=== PATIENT | male | born 1950 | race Caucasian/White ===

== ENCOUNTER 2021-10-18 07:11 | Outpatient (REF) | payer OTHER, SELFPAY ==
[2021-10-18 07:57] LABS: Hematocrit 25.4 % (42.0-52.0); Hemoglobin 8.1 g/dl (14.0-18.0); Mean Corpuscular HGB Conc 31.9 g/dl (31.0-36.0); Mean Corpuscular Hemoglobin 28.9 pg (27.0-33.0); Mean Corpuscular Volume 90.7 fL (80.0-98.0); Mean Platelet Volume 10.3 fL (9.4-12.4); NRBC Pct Auto 0.5 /100WBC (0.0-0.2); Platelet Count 225 X10*3/uL (160-400); Red Cell Distribution Width 15.3 % (11.0-16.0); White Blood Count 4.3 X10*3/uL (4.8-10.8)
[2021-10-18 08:27] LABS: Alanine Aminotransferase 15 U/L (0-40); Albumin Level 2.9 g/dL (3.5-5.0); Alkaline Phosphatase 52 U/L (39-117); Anion Gap 10 (12-20); Aspartate Amino Transferase 18 U/L (5-37); Bilirubin Total 0.5 mg/dL (0.0-1.0); Blood Urea Nitrogen 10 mg/dL (9-16); Calcium 8.2 mg/dL (8.4-10.2); Carbon Dioxide 29 mmol/L (22-29); Chloride 109 mmol/L (96-108); Estimated Glomerular Filt Rate > 60; Glucose Random 93 mg/dL (60-115); Potassium 3.6 mmol/L (3.3-5.1); Sodium 144 mmol/L (135-145); Total Protein 4.6 g/dL (6.5-8.0)
== END 2021-10-18 07:12 | disposition home or self-care (01) ==
LOC: HO.MMNH2L 07:11
PROVIDERS: Visit Provider Family Medicine
DX: D64.9 Anemia, unspecified (principal)
CPT/HCPCS: 36415; 80053; 85027

== ENCOUNTER 2021-10-25 | Outpatient (REF) | payer OTHER, SELFPAY ==
[2021-10-25 07:48] LABS: Hematocrit 30.5 % (42.0-52.0); Hemoglobin 9.4 g/dl (14.0-18.0); Mean Corpuscular HGB Conc 30.8 g/dl (31.0-36.0); Mean Corpuscular Hemoglobin 28.5 pg (27.0-33.0); Mean Corpuscular Volume 92.4 fL (80.0-98.0); Mean Platelet Volume 10.5 fL (9.4-12.4); Platelet Count 274 X10*3/uL (160-400); Red Cell Distribution Width 15.4 % (11.0-16.0); White Blood Count 5.2 X10*3/uL (4.8-10.8)
[2021-10-25 08:37] LABS: Anion Gap 10 (12-20); Blood Urea Nitrogen 20 mg/dL (9-16); Carbon Dioxide 29 mmol/L (22-29); Chloride 110 mmol/L (96-108); Estimated Glomerular Filt Rate > 60; Glucose Random 82 mg/dL (60-115); Sodium 145 mmol/L (135-145)
== END 2021-10-25 00:01 | disposition home or self-care (01) ==
LOC: HO.MMNH2L
PROVIDERS: Visit Provider Family Medicine
DX: D64.9 Anemia, unspecified (principal)
CPT/HCPCS: 36415; 80048; 85027

== ENCOUNTER 2021-11-01 | Outpatient (REF) | payer OTHER, SELFPAY ==
[2021-11-01 07:30] LABS: MANUAL DIFF FLAG NO
[2021-11-01 07:41] LABS: Basophils Percent Auto 0.5 % (0-2); Eosinophils Absolute Auto 0.3 X10*3/uL (0.0-0.4); Eosinophils Percent Auto 4.7 % (0-4); Hematocrit 36.1 % (42.0-52.0); Hemoglobin 11.5 g/dl (14.0-18.0); Imm Gran Abs Auto 0.03 X10*3/uL (0.00-0.03); Imm Gran Pct Auto 0.5 % (0.0-0.4); Lymphocytes Absolute Auto 1.1 X10*3/uL (1.2-4.9); Lymphocytes Percent Auto 18.2 % (20-40); Mean Corpuscular HGB Conc 31.9 g/dl (31.0-36.0); Mean Corpuscular Hemoglobin 28.3 pg (27.0-33.0); Mean Corpuscular Volume 88.7 fL (80.0-98.0); Mean Platelet Volume 10.9 fL (9.4-12.4); Monocytes Absolute Auto 0.7 X10*3/uL (0.1-1.2); Monocytes Percent Auto 11.8 % (2-11); Neutrophils Absolute Auto 3.8 x10*3/uL (2.0-8.3); Neutrophils Percent Auto 64.3 % (45-73); Platelet Count 289 X10*3/uL (160-400); Red Blood Count 4.07 X10*6/uL (4.60-5.80); Red Cell Distribution Width 14.1 % (11.0-16.0); White Blood Count 5.9 X10*3/uL (4.8-10.8)
[2021-11-01 08:02] LABS: Anion Gap 12 (12-20); Blood Urea Nitrogen 11 mg/dL (9-16); Calcium 8.7 mg/dL (8.4-10.2); Carbon Dioxide 26 mmol/L (22-29); Chloride 108 mmol/L (96-108); Estimated Glomerular Filt Rate > 60; Glucose Random 85 mg/dL (60-115); Potassium 4.1 mmol/L (3.3-5.1); Sodium 142 mmol/L (135-145)
== END 2021-11-01 00:01 | disposition home or self-care (01) ==
LOC: HO.MMNH2L
PROVIDERS: Visit Provider Family Medicine
DX: D64.9 Anemia, unspecified (principal)
CPT/HCPCS: 36415; 80048; 85025

== ENCOUNTER 2021-11-08 | Outpatient (REF) | payer OTHER, SELFPAY ==
[2021-11-08 06:59] LABS: Hematocrit 37.2 % (42.0-52.0); Hemoglobin 11.7 g/dl (14.0-18.0); Mean Corpuscular HGB Conc 31.5 g/dl (31.0-36.0); Mean Corpuscular Hemoglobin 27.7 pg (27.0-33.0); Mean Corpuscular Volume 88.2 fL (80.0-98.0); Mean Platelet Volume 10.7 fL (9.4-12.4); Platelet Count 211 X10*3/uL (160-400); Red Blood Count 4.22 X10*6/uL (4.60-5.80); Red Cell Distribution Width 14.4 % (11.0-16.0); White Blood Count 5.9 X10*3/uL (4.8-10.8)
[2021-11-08 07:17] LABS: Anion Gap 13 (12-20); Blood Urea Nitrogen 12 mg/dL (9-16); Calcium 8.6 mg/dL (8.4-10.2); Carbon Dioxide 27 mmol/L (22-29); Chloride 106 mmol/L (96-108); Estimated Glomerular Filt Rate > 60; Glucose Random 99 mg/dL (60-115); Sodium 142 mmol/L (135-145)
== END 2021-11-08 00:01 | disposition home or self-care (01) ==
LOC: HO.MMNH2L
PROVIDERS: Visit Provider Family Medicine
DX: D64.9 Anemia, unspecified (principal)
CPT/HCPCS: 36415; 80048; 85027

== ENCOUNTER 2021-11-15 05:59 | Outpatient (REF) | payer OTHER, SELFPAY ==
[2021-11-15 07:18] LABS: Hemoglobin 10.6 g/dl (14.0-18.0); Mean Corpuscular HGB Conc 31.2 g/dl (31.0-36.0); Mean Corpuscular Hemoglobin 27.5 pg (27.0-33.0); Mean Corpuscular Volume 88.3 fL (80.0-98.0); Mean Platelet Volume 10.6 fL (9.4-12.4); Platelet Count 207 X10*3/uL (160-400); Red Blood Count 3.85 X10*6/uL (4.60-5.80); White Blood Count 4.6 X10*3/uL (4.8-10.8)
[2021-11-15 07:50] LABS: Anion Gap 8 (12-20); Blood Urea Nitrogen 13 mg/dL (9-16); Calcium 8.4 mg/dL (8.4-10.2); Carbon Dioxide 30 mmol/L (22-29); Chloride 110 mmol/L (96-108); Estimated Glomerular Filt Rate > 60; Glucose Random 85 mg/dL (60-115); Potassium 3.9 mmol/L (3.3-5.1); Sodium 144 mmol/L (135-145)
== END 2021-11-15 06:00 | disposition home or self-care (01) ==
LOC: HO.MMNH2L 05:59
PROVIDERS: Visit Provider Family Medicine
DX: D64.9 Anemia, unspecified (principal)
CPT/HCPCS: 36415; 80048; 85027

== ENCOUNTER 2021-11-22 21:39 | Outpatient (REF) | payer OTHER, SELFPAY ==
[2021-11-22 06:55] LABS: Hematocrit 38.6 % (42.0-52.0); Hemoglobin 11.8 g/dl (14.0-18.0); Mean Corpuscular HGB Conc 30.6 g/dl (31.0-36.0); Mean Corpuscular Volume 88.3 fL (80.0-98.0); Mean Platelet Volume 10.6 fL (9.4-12.4); Platelet Count 196 X10*3/uL (160-400); Red Blood Count 4.37 X10*6/uL (4.60-5.80); Red Cell Distribution Width 14.3 % (11.0-16.0); White Blood Count 6.7 X10*3/uL (4.8-10.8)
[2021-11-22 07:25] LABS: Anion Gap 11 (12-20); Blood Urea Nitrogen 15 mg/dL (9-16); Calcium 8.7 mg/dL (8.4-10.2); Carbon Dioxide 28 mmol/L (22-29); Chloride 108 mmol/L (96-108); Estimated Glomerular Filt Rate > 60; Glucose Random 89 mg/dL (60-115); Potassium 4.2 mmol/L (3.3-5.1); Sodium 143 mmol/L (135-145)
== END 2021-11-22 21:40 | disposition home or self-care (01) ==
LOC: HO.MMNH2L 21:39
PROVIDERS: Visit Provider Family Medicine
DX: D64.9 Anemia, unspecified (principal)
CPT/HCPCS: 36415; 80048; 85027

== ENCOUNTER 2021-11-29 00:46 | Outpatient (REF) | payer OTHER, SELFPAY ==
[2021-11-29 07:10] LABS: Hematocrit 39.9 % (42.0-52.0); Hemoglobin 12.5 g/dl (14.0-18.0); Mean Corpuscular HGB Conc 31.3 g/dl (31.0-36.0); Mean Corpuscular Hemoglobin 27.5 pg (27.0-33.0); Mean Corpuscular Volume 87.7 fL (80.0-98.0); Mean Platelet Volume 10.1 fL (9.4-12.4); Platelet Count 161 X10*3/uL (160-400); Red Blood Count 4.55 X10*6/uL (4.60-5.80); Red Cell Distribution Width 14.6 % (11.0-16.0); White Blood Count 4.5 X10*3/uL (4.8-10.8)
[2021-11-29 07:30] LABS: Anion Gap 9 (12-20); Blood Urea Nitrogen 9 mg/dL (9-16); Calcium 8.6 mg/dL (8.4-10.2); Carbon Dioxide 29 mmol/L (22-29); Chloride 108 mmol/L (96-108); Estimated Glomerular Filt Rate > 60; Glucose Random 81 mg/dL (60-115); Potassium 3.7 mmol/L (3.3-5.1); Sodium 142 mmol/L (135-145)
== END 2021-11-29 00:47 | disposition home or self-care (01) ==
LOC: HO.MMNH2L 00:46
PROVIDERS: Visit Provider Family Medicine
DX: D64.9 Anemia, unspecified (principal)
CPT/HCPCS: 36415; 80048; 85027

== ENCOUNTER 2021-12-06 00:42 | Outpatient (REF) | payer OTHER, SELFPAY ==
[2021-12-06 07:11] LABS: Hematocrit 39.5 % (42.0-52.0); Hemoglobin 12.2 g/dl (14.0-18.0); Mean Corpuscular HGB Conc 30.9 g/dl (31.0-36.0); Mean Corpuscular Hemoglobin 27.1 pg (27.0-33.0); Mean Corpuscular Volume 87.8 fL (80.0-98.0); Mean Platelet Volume 10.4 fL (9.4-12.4); Platelet Count 161 X10*3/uL (160-400); Red Cell Distribution Width 14.8 % (11.0-16.0); White Blood Count 4.3 X10*3/uL (4.8-10.8)
[2021-12-06 07:37] LABS: Anion Gap 11 (12-20); Blood Urea Nitrogen 12 mg/dL (9-16); Calcium 8.6 mg/dL (8.4-10.2); Carbon Dioxide 28 mmol/L (22-29); Chloride 107 mmol/L (96-108); Estimated Glomerular Filt Rate > 60; Glucose Random 82 mg/dL (60-115); Potassium 3.7 mmol/L (3.3-5.1); Sodium 142 mmol/L (135-145)
== END 2021-12-06 00:43 | disposition home or self-care (01) ==
LOC: HO.MMNH2L 00:42
PROVIDERS: Visit Provider Family Medicine
DX: D64.9 Anemia, unspecified (principal)
CPT/HCPCS: 36415; 80048; 85027

== ENCOUNTER 2021-12-13 00:57 | Outpatient (REF) | payer OTHER, SELFPAY ==
[2021-12-13 07:04] LABS: Hematocrit 38.3 % (42.0-52.0); Hemoglobin 12.1 g/dl (14.0-18.0); Mean Corpuscular HGB Conc 31.6 g/dl (31.0-36.0); Mean Corpuscular Hemoglobin 27.2 pg (27.0-33.0); Mean Corpuscular Volume 86.1 fL (80.0-98.0); Mean Platelet Volume 10.6 fL (9.4-12.4); Platelet Count 162 X10*3/uL (160-400); Red Blood Count 4.45 X10*6/uL (4.60-5.80); Red Cell Distribution Width 14.9 % (11.0-16.0); White Blood Count 3.7 X10*3/uL (4.8-10.8)
[2021-12-13 07:23] LABS: Anion Gap 11 (12-20); Blood Urea Nitrogen 10 mg/dL (9-16); Calcium 8.4 mg/dL (8.4-10.2); Carbon Dioxide 27 mmol/L (22-29); Chloride 108 mmol/L (96-108); Estimated Glomerular Filt Rate > 60; Glucose Random 86 mg/dL (60-115); Potassium 3.6 mmol/L (3.3-5.1); Sodium 142 mmol/L (135-145)
== END 2021-12-13 00:58 | disposition home or self-care (01) ==
LOC: HO.MMNH2L 00:57
PROVIDERS: Visit Provider Family Medicine
DX: D64.9 Anemia, unspecified (principal)
CPT/HCPCS: 36415; 80048; 85027

== ENCOUNTER 2021-12-20 | Outpatient (REF) | payer OTHER, SELFPAY ==
[2021-12-20 06:56] LABS: Hematocrit 41.3 % (42.0-52.0); Hemoglobin 13.2 g/dl (14.0-18.0); Mean Corpuscular Volume 87.7 fL (80.0-98.0); Mean Platelet Volume 10.6 fL (9.4-12.4); Platelet Count 169 X10*3/uL (160-400); Red Blood Count 4.71 X10*6/uL (4.60-5.80); Red Cell Distribution Width 15.7 % (11.0-16.0)
[2021-12-20 07:15] LABS: Anion Gap 11 (12-20); Blood Urea Nitrogen 14 mg/dL (9-16); Calcium 8.8 mg/dL (8.4-10.2); Carbon Dioxide 28 mmol/L (22-29); Chloride 107 mmol/L (96-108); Estimated Glomerular Filt Rate > 60; Glucose Random 81 mg/dL (60-115); Potassium 3.8 mmol/L (3.3-5.1); Sodium 142 mmol/L (135-145)
== END 2021-12-20 00:01 | disposition home or self-care (01) ==
LOC: HO.MMNH2L
PROVIDERS: Visit Provider Family Medicine
DX: D64.9 Anemia, unspecified (principal)
CPT/HCPCS: 36415; 80048; 85027

== ENCOUNTER 2021-12-27 | Outpatient (REF) | payer OTHER, SELFPAY ==
[2021-12-27 06:55] LABS: Hematocrit 40.4 % (42.0-52.0); Hemoglobin 12.6 g/dl (14.0-18.0); Mean Corpuscular HGB Conc 31.2 g/dl (31.0-36.0); Mean Corpuscular Hemoglobin 26.9 pg (27.0-33.0); Mean Corpuscular Volume 86.3 fL (80.0-98.0); Mean Platelet Volume 10.1 fL (9.4-12.4); Platelet Count 195 X10*3/uL (160-400); Red Blood Count 4.68 X10*6/uL (4.60-5.80); Red Cell Distribution Width 15.2 % (11.0-16.0)
[2021-12-27 07:30] LABS: Anion Gap 10 (12-20); Blood Urea Nitrogen 8 mg/dL (9-16); Calcium 8.5 mg/dL (8.4-10.2); Carbon Dioxide 28 mmol/L (22-29); Chloride 109 mmol/L (96-108); Estimated Glomerular Filt Rate > 60; Glucose Random 79 mg/dL (60-115); Potassium 3.9 mmol/L (3.3-5.1); Sodium 143 mmol/L (135-145)
== END 2021-12-27 00:01 | disposition home or self-care (01) ==
LOC: HO.MMNH2L
PROVIDERS: Visit Provider Family Medicine
DX: D64.9 Anemia, unspecified (principal)
CPT/HCPCS: 36415; 80048; 85027

== ENCOUNTER 2022-01-03 | Outpatient (REF) | payer OTHER, SELFPAY ==
[2022-01-03 06:57] LABS: MANUAL DIFF FLAG NO
[2022-01-03 07:09] LABS: Basophils Percent Auto 0.7 % (0-2); Eosinophils Absolute Auto 0.3 X10*3/uL (0.0-0.4); Eosinophils Percent Auto 7.8 % (0-4); Hematocrit 39.4 % (42.0-52.0); Hemoglobin 12.6 g/dl (14.0-18.0); Imm Gran Abs Auto 0.01 X10*3/uL (0.00-0.03); Imm Gran Pct Auto 0.2 % (0.0-0.4); Lymphocytes Absolute Auto 1.1 X10*3/uL (1.2-4.9); Lymphocytes Percent Auto 27.7 % (20-40); Mean Corpuscular Hemoglobin 27.1 pg (27.0-33.0); Mean Corpuscular Volume 84.7 fL (80.0-98.0); Mean Platelet Volume 10.4 fL (9.4-12.4); Monocytes Absolute Auto 0.3 X10*3/uL (0.1-1.2); Monocytes Percent Auto 8.3 % (2-11); Neutrophils Absolute Auto 2.3 x10*3/uL (2.0-8.3); Neutrophils Percent Auto 55.3 % (45-73); Platelet Count 169 X10*3/uL (160-400); Red Blood Count 4.65 X10*6/uL (4.60-5.80); Red Cell Distribution Width 15.4 % (11.0-16.0); White Blood Count 4.1 X10*3/uL (4.8-10.8)
[2022-01-03 07:35] LABS: Anion Gap 11 (12-20); Blood Urea Nitrogen 9 mg/dL (9-16); Calcium 8.8 mg/dL (8.4-10.2); Carbon Dioxide 28 mmol/L (22-29); Chloride 108 mmol/L (96-108); Estimated Glomerular Filt Rate > 60; Glucose Random 86 mg/dL (60-115); Potassium 3.7 mmol/L (3.3-5.1); Sodium 143 mmol/L (135-145)
== END 2022-01-03 00:01 | disposition home or self-care (01) ==
LOC: HO.MMNH3L
PROVIDERS: Visit Provider Family Medicine
DX: D64.9 Anemia, unspecified (principal)
CPT/HCPCS: 36415; 80048; 85025

== ENCOUNTER 2022-01-06 07:08 | Outpatient (REF) | payer OTHER, SELFPAY ==
[2022-01-06 07:13] LABS: MANUAL DIFF FLAG NO
[2022-01-06 07:19] LABS: Basophils Percent Auto 0.2 % (0-2); Eosinophils Absolute Auto 0.1 X10*3/uL (0.0-0.4); Eosinophils Percent Auto 1.4 % (0-4); Hematocrit 41.4 % (42.0-52.0); Hemoglobin 13.3 g/dl (14.0-18.0); Imm Gran Abs Auto 0.02 X10*3/uL (0.00-0.03); Imm Gran Pct Auto 0.4 % (0.0-0.4); Lymphocytes Absolute Auto 0.4 X10*3/uL (1.2-4.9); Lymphocytes Percent Auto 7.6 % (20-40); Mean Corpuscular HGB Conc 32.1 g/dl (31.0-36.0); Mean Corpuscular Hemoglobin 26.9 pg (27.0-33.0); Mean Corpuscular Volume 83.6 fL (80.0-98.0); Mean Platelet Volume 10.4 fL (9.4-12.4); Monocytes Absolute Auto 0.3 X10*3/uL (0.1-1.2); Monocytes Percent Auto 6.1 % (2-11); Neutrophils Absolute Auto 4.3 x10*3/uL (2.0-8.3); Neutrophils Percent Auto 84.3 % (45-73); Platelet Count 171 X10*3/uL (160-400); Red Blood Count 4.95 X10*6/uL (4.60-5.80); Red Cell Distribution Width 15.9 % (11.0-16.0); White Blood Count 5.1 X10*3/uL (4.8-10.8)
[2022-01-06 07:35] LABS: Anion Gap 12 (12-20); Blood Urea Nitrogen 9 mg/dL (9-16); Calcium 8.9 mg/dL (8.4-10.2); Carbon Dioxide 26 mmol/L (22-29); Chloride 108 mmol/L (96-108); Estimated Glomerular Filt Rate > 60; Glucose Random 106 mg/dL (60-115); Potassium 3.8 mmol/L (3.3-5.1); Sodium 142 mmol/L (135-145)
[2022-01-06 07:45] LABS: B Type Natriuretic Peptide 22 pg/mL (<100)
[2022-01-06 08:01] LABS: Free T4 (Free Thyroxine) 0.99 ng/dL (0.71-1.85); Thyroid Stimulating Hormone 0.56 uIU/mL (0.32-4.0); Vitamin D 25-OH Total 36.4 ng/mL (>30)
[2022-01-06 08:52] LABS: Folate 11.8 ng/mL (> or = 4.0); Vitamin B12 301 pg/mL (200-900)
== END 2022-01-06 07:09 | disposition home or self-care (01) ==
LOC: HO.MMNH3L 07:08
PROVIDERS: Visit Provider Family Medicine
DX: J45.909 Unspecified asthma, uncomplicated (principal); J44.9 Chronic obstructive pulmonary disease, unspecified; F32.A Depression, unspecified; E78.5 Hyperlipidemia, unspecified; Z79.899 Other long term (current) drug therapy
CPT/HCPCS: 36415; 80048; 80164; 82306; 82607; 82746; 83880; 84439; 84443; 85025

== ENCOUNTER 2022-01-10 | Outpatient (REF) | payer OTHER, SELFPAY ==
[2022-01-10 07:09] LABS: MANUAL DIFF FLAG NO
[2022-01-10 07:28] LABS: Eosinophils Percent Auto 1.1 % (0-4); Hematocrit 36.5 % (42.0-52.0); Hemoglobin 11.6 g/dl (14.0-18.0); Imm Gran Abs Auto 0.01 X10*3/uL (0.00-0.03); Imm Gran Pct Auto 0.4 % (0.0-0.4); Lymphocytes Absolute Auto 0.7 X10*3/uL (1.2-4.9); Lymphocytes Percent Auto 24.9 % (20-40); Mean Corpuscular HGB Conc 31.8 g/dl (31.0-36.0); Mean Corpuscular Hemoglobin 26.9 pg (27.0-33.0); Mean Corpuscular Volume 84.5 fL (80.0-98.0); Mean Platelet Volume 10.8 fL (9.4-12.4); Monocytes Absolute Auto 0.4 X10*3/uL (0.1-1.2); Monocytes Percent Auto 13.2 % (2-11); Neutrophils Absolute Auto 1.7 x10*3/uL (2.0-8.3); Neutrophils Percent Auto 60.4 % (45-73); Platelet Count 142 X10*3/uL (160-400); Red Blood Count 4.32 X10*6/uL (4.60-5.80); Red Cell Distribution Width 16.5 % (11.0-16.0); White Blood Count 2.8 X10*3/uL (4.8-10.8)
[2022-01-10 07:43] LABS: Anion Gap 9 (12-20); Blood Urea Nitrogen 10 mg/dL (9-16); Calcium 7.9 mg/dL (8.4-10.2); Carbon Dioxide 29 mmol/L (22-29); Chloride 104 mmol/L (96-108); Estimated Glomerular Filt Rate > 60; Glucose Random 85 mg/dL (60-115); Potassium 3.6 mmol/L (3.3-5.1); Sodium 138 mmol/L (135-145)
== END 2022-01-10 00:01 | disposition home or self-care (01) ==
LOC: HO.MMNH3L
PROVIDERS: Visit Provider Family Medicine
DX: D64.9 Anemia, unspecified (principal)
CPT/HCPCS: 36415; 80048; 85025

== ENCOUNTER 2022-01-17 | Outpatient (REF) | payer OTHER, SELFPAY ==
[2022-01-17 06:53] LABS: Hematocrit 37.2 % (42.0-52.0); Hemoglobin 11.9 g/dl (14.0-18.0); Mean Corpuscular Hemoglobin 26.9 pg (27.0-33.0); Mean Corpuscular Volume 84.2 fL (80.0-98.0); Mean Platelet Volume 10.1 fL (9.4-12.4); Platelet Count 210 X10*3/uL (160-400); Red Blood Count 4.42 X10*6/uL (4.60-5.80)
[2022-01-17 07:23] LABS: Anion Gap 9 (12-20); Blood Urea Nitrogen 11 mg/dL (9-16); Calcium 8.5 mg/dL (8.4-10.2); Carbon Dioxide 28 mmol/L (22-29); Chloride 109 mmol/L (96-108); Estimated Glomerular Filt Rate > 60; Glucose Random 80 mg/dL (60-115); Potassium 3.9 mmol/L (3.3-5.1); Sodium 142 mmol/L (135-145)
== END 2022-01-17 00:01 ==
LOC: HO.MMNH3L
PROVIDERS: Visit Provider Family Medicine
DX: D64.9 Anemia, unspecified (principal)
CPT/HCPCS: 36415; 80048; 85027

== ENCOUNTER 2022-01-24 07:08 | Outpatient (REF) | payer OTHER, SELFPAY | END 2022-01-24 07:09 | disposition home or self-care (01) | LOC: HO.MMNH3L 07:08 | PROVIDERS: Visit Provider Family Medicine | DX: Z13.89 Encounter for screening for other disorder (principal) ==

== ENCOUNTER 2022-01-25 | Outpatient (REF) | payer OTHER, SELFPAY ==
[2022-01-25 06:35] LABS: MANUAL DIFF FLAG NO
[2022-01-25 06:50] LABS: Basophils Percent Auto 0.8 % (0-2); Eosinophils Absolute Auto 0.3 X10*3/uL (0.0-0.4); Eosinophils Percent Auto 7.3 % (0-4); Hematocrit 40.6 % (42.0-52.0); Imm Gran Abs Auto 0.01 X10*3/uL (0.00-0.03); Imm Gran Pct Auto 0.3 % (0.0-0.4); Lymphocytes Absolute Auto 1.3 X10*3/uL (1.2-4.9); Lymphocytes Percent Auto 33.2 % (20-40); Mean Corpuscular Hemoglobin 27.2 pg (27.0-33.0); Mean Corpuscular Volume 84.9 fL (80.0-98.0); Mean Platelet Volume 9.9 fL (9.4-12.4); Monocytes Absolute Auto 0.3 X10*3/uL (0.1-1.2); Monocytes Percent Auto 8.1 % (2-11); Neutrophils Absolute Auto 1.9 x10*3/uL (2.0-8.3); Neutrophils Percent Auto 50.3 % (45-73); Platelet Count 236 X10*3/uL (160-400); Red Blood Count 4.78 X10*6/uL (4.60-5.80); Red Cell Distribution Width 16.9 % (11.0-16.0); White Blood Count 3.9 X10*3/uL (4.8-10.8)
[2022-01-25 07:07] LABS: Anion Gap 11 (12-20); Blood Urea Nitrogen 11 mg/dL (9-16); Calcium 8.9 mg/dL (8.4-10.2); Carbon Dioxide 28 mmol/L (22-29); Chloride 108 mmol/L (96-108); Estimated Glomerular Filt Rate > 60; Glucose Random 89 mg/dL (60-115); Sodium 143 mmol/L (135-145)
== END 2022-01-25 00:01 ==
LOC: HO.MMNH3L
PROVIDERS: Visit Provider Family Medicine
DX: D64.9 Anemia, unspecified (principal); E78.5 Hyperlipidemia, unspecified; J44.9 Chronic obstructive pulmonary disease, unspecified
CPT/HCPCS: 36415; 80048; 85025

== ENCOUNTER 2022-01-31 | Outpatient (REF) | payer OTHER, SELFPAY ==
[2022-01-31 07:02] LABS: MANUAL DIFF FLAG NO
[2022-01-31 07:24] LABS: Basophils Percent Auto 0.7 % (0-2); Eosinophils Absolute Auto 0.3 X10*3/uL (0.0-0.4); Eosinophils Percent Auto 6.3 % (0-4); Hematocrit 39.5 % (42.0-52.0); Hemoglobin 12.7 g/dl (14.0-18.0); Imm Gran Abs Auto 0.02 X10*3/uL (0.00-0.03); Imm Gran Pct Auto 0.5 % (0.0-0.4); Lymphocytes Absolute Auto 1.1 X10*3/uL (1.2-4.9); Lymphocytes Percent Auto 25.9 % (20-40); Mean Corpuscular HGB Conc 32.2 g/dl (31.0-36.0); Mean Corpuscular Hemoglobin 27.1 pg (27.0-33.0); Mean Corpuscular Volume 84.4 fL (80.0-98.0); Mean Platelet Volume 10.1 fL (9.4-12.4); Monocytes Absolute Auto 0.4 X10*3/uL (0.1-1.2); Monocytes Percent Auto 8.6 % (2-11); Neutrophils Absolute Auto 2.5 x10*3/uL (2.0-8.3); Platelet Count 201 X10*3/uL (160-400); Red Blood Count 4.68 X10*6/uL (4.60-5.80); Red Cell Distribution Width 17.2 % (11.0-16.0); White Blood Count 4.3 X10*3/uL (4.8-10.8)
[2022-01-31 08:07] LABS: Anion Gap 9 (12-20); Blood Urea Nitrogen 9 mg/dL (9-16); Calcium 8.7 mg/dL (8.4-10.2); Carbon Dioxide 28 mmol/L (22-29); Chloride 110 mmol/L (96-108); Estimated Glomerular Filt Rate > 60; Glucose Random 90 mg/dL (60-115); Potassium 3.7 mmol/L (3.3-5.1); Sodium 143 mmol/L (135-145)
== END 2022-01-31 00:01 | disposition home or self-care (01) ==
LOC: HO.MMNH3L
PROVIDERS: Visit Provider Family Medicine
DX: J44.9 Chronic obstructive pulmonary disease, unspecified (principal); L03.115 Cellulitis of right lower limb; D64.9 Anemia, unspecified
CPT/HCPCS: 36415; 80048; 85025

== ENCOUNTER 2022-02-17 10:58 | Outpatient (REF) | payer OTHER, SELFPAY ==
[2022-02-15 06:31] LABS: MANUAL DIFF FLAG NO
[2022-02-15 06:59] LABS: Basophils Percent Auto 0.4 % (0-2); Eosinophils Absolute Auto 0.4 X10*3/uL (0.0-0.4); Eosinophils Percent Auto 9.4 % (0-4); Hematocrit 39.3 % (42.0-52.0); Hemoglobin 12.6 g/dl (14.0-18.0); Imm Gran Abs Auto 0.02 X10*3/uL (0.00-0.03); Imm Gran Pct Auto 0.4 % (0.0-0.4); Lymphocytes Absolute Auto 1.4 X10*3/uL (1.2-4.9); Lymphocytes Percent Auto 31.3 % (20-40); Mean Corpuscular HGB Conc 32.1 g/dl (31.0-36.0); Mean Corpuscular Hemoglobin 27.4 pg (27.0-33.0); Mean Corpuscular Volume 85.4 fL (80.0-98.0); Mean Platelet Volume 10.2 fL (9.4-12.4); Monocytes Absolute Auto 0.4 X10*3/uL (0.1-1.2); Monocytes Percent Auto 9.6 % (2-11); Neutrophils Absolute Auto 2.2 x10*3/uL (2.0-8.3); Neutrophils Percent Auto 48.9 % (45-73); Platelet Count 152 X10*3/uL (160-400); Red Cell Distribution Width 17.9 % (11.0-16.0); White Blood Count 4.5 X10*3/uL (4.8-10.8)
[2022-02-15 07:24] LABS: Anion Gap 11 (12-20); Blood Urea Nitrogen 12 mg/dL (9-16); Calcium 8.8 mg/dL (8.4-10.2); Carbon Dioxide 27 mmol/L (22-29); Chloride 109 mmol/L (96-108); Estimated Glomerular Filt Rate > 60; Glucose Random 78 mg/dL (60-115); Potassium 3.7 mmol/L (3.3-5.1); Sodium 143 mmol/L (135-145)
== END 2022-02-17 10:59 | disposition home or self-care (01) ==
LOC: HO.MMNH3L 10:58
PROVIDERS: Visit Provider Family Medicine
DX: D64.9 Anemia, unspecified (principal); E78.5 Hyperlipidemia, unspecified; J44.9 Chronic obstructive pulmonary disease, unspecified
CPT/HCPCS: 36415; 80048; 85025

== ENCOUNTER 2022-02-17 11:22 | Outpatient (REF) | payer OTHER, SELFPAY ==
[2022-02-07 06:47] LABS: MANUAL DIFF FLAG NO
[2022-02-07 06:53] LABS: Basophils Percent Auto 0.3 % (0-2); Eosinophils Absolute Auto 0.4 X10*3/uL (0.0-0.4); Eosinophils Percent Auto 6.2 % (0-4); Hematocrit 38.7 % (42.0-52.0); Hemoglobin 12.4 g/dl (14.0-18.0); Imm Gran Abs Auto 0.01 X10*3/uL (0.00-0.03); Imm Gran Pct Auto 0.2 % (0.0-0.4); Lymphocytes Absolute Auto 1.3 X10*3/uL (1.2-4.9); Lymphocytes Percent Auto 22.4 % (20-40); Mean Corpuscular Volume 84.3 fL (80.0-98.0); Monocytes Absolute Auto 0.5 X10*3/uL (0.1-1.2); Monocytes Percent Auto 8.9 % (2-11); Neutrophils Absolute Auto 3.6 x10*3/uL (2.0-8.3); Platelet Count 159 X10*3/uL (160-400); Red Blood Count 4.59 X10*6/uL (4.60-5.80); Red Cell Distribution Width 17.6 % (11.0-16.0); White Blood Count 5.8 X10*3/uL (4.8-10.8)
[2022-02-07 07:25] LABS: Anion Gap 9 (12-20); Blood Urea Nitrogen 8 mg/dL (9-16); Calcium 8.3 mg/dL (8.4-10.2); Carbon Dioxide 29 mmol/L (22-29); Chloride 107 mmol/L (96-108); Estimated Glomerular Filt Rate > 60; Glucose Random 90 mg/dL (60-115); Potassium 3.8 mmol/L (3.3-5.1); Sodium 141 mmol/L (135-145)
== END 2022-02-17 11:23 | disposition home or self-care (01) ==
LOC: HO.MMNH3L 11:22
PROVIDERS: Visit Provider Family Medicine
DX: D64.9 Anemia, unspecified (principal); E78.5 Hyperlipidemia, unspecified; J44.9 Chronic obstructive pulmonary disease, unspecified
CPT/HCPCS: 36415; 80048; 85025

== ENCOUNTER 2022-02-21 06:31 | Outpatient (REF) | payer OTHER, SELFPAY ==
[2022-02-21 06:32] LABS: MANUAL DIFF FLAG NO
[2022-02-21 07:17] LABS: Basophils Absolute Auto 0.1 X10*3/uL (0.0-0.2); Basophils Percent Auto 0.8 % (0-2); Eosinophils Absolute Auto 0.4 X10*3/uL (0.0-0.4); Eosinophils Percent Auto 6.7 % (0-4); Hematocrit 44.3 % (42.0-52.0); Hemoglobin 14.2 g/dl (14.0-18.0); Imm Gran Abs Auto 0.01 X10*3/uL (0.00-0.03); Imm Gran Pct Auto 0.2 % (0.0-0.4); Lymphocytes Absolute Auto 1.8 X10*3/uL (1.2-4.9); Lymphocytes Percent Auto 29.3 % (20-40); Mean Corpuscular HGB Conc 32.1 g/dl (31.0-36.0); Mean Corpuscular Hemoglobin 27.6 pg (27.0-33.0); Mean Corpuscular Volume 86.2 fL (80.0-98.0); Mean Platelet Volume 10.4 fL (9.4-12.4); Monocytes Absolute Auto 0.5 X10*3/uL (0.1-1.2); Monocytes Percent Auto 7.5 % (2-11); Neutrophils Absolute Auto 3.4 x10*3/uL (2.0-8.3); Neutrophils Percent Auto 55.5 % (45-73); Platelet Count 207 X10*3/uL (160-400); Red Blood Count 5.14 X10*6/uL (4.60-5.80); Red Cell Distribution Width 17.8 % (11.0-16.0); White Blood Count 6.1 X10*3/uL (4.8-10.8)
[2022-02-21 07:50] LABS: Anion Gap 14 (12-20); Blood Urea Nitrogen 10 mg/dL (9-16); Calcium 8.9 mg/dL (8.4-10.2); Carbon Dioxide 27 mmol/L (22-29); Chloride 106 mmol/L (96-108); Estimated Glomerular Filt Rate > 60; Glucose Random 84 mg/dL (60-115); Potassium 4.4 mmol/L (3.3-5.1); Sodium 143 mmol/L (135-145)
== END 2022-02-21 06:32 | disposition home or self-care (01) ==
LOC: HO.MMNH3L 06:31
PROVIDERS: Visit Provider Family Medicine
DX: D64.9 Anemia, unspecified (principal); J44.9 Chronic obstructive pulmonary disease, unspecified; E78.5 Hyperlipidemia, unspecified
CPT/HCPCS: 36415; 80048; 85025

== ENCOUNTER 2022-02-28 06:16 | Outpatient (REF) | payer OTHER, SELFPAY ==
[2022-02-28 06:24] LABS: MANUAL DIFF FLAG NO
[2022-02-28 06:54] LABS: Basophils Percent Auto 0.8 % (0-2); Eosinophils Absolute Auto 0.4 X10*3/uL (0.0-0.4); Eosinophils Percent Auto 9.6 % (0-4); Hematocrit 38.6 % (42.0-52.0); Hemoglobin 12.6 g/dl (14.0-18.0); Imm Gran Abs Auto 0.01 X10*3/uL (0.00-0.03); Imm Gran Pct Auto 0.3 % (0.0-0.4); Lymphocytes Absolute Auto 1.2 X10*3/uL (1.2-4.9); Mean Corpuscular HGB Conc 32.6 g/dl (31.0-36.0); Mean Corpuscular Volume 85.8 fL (80.0-98.0); Monocytes Absolute Auto 0.3 X10*3/uL (0.1-1.2); Monocytes Percent Auto 8.1 % (2-11); Neutrophils Absolute Auto 2.1 x10*3/uL (2.0-8.3); Neutrophils Percent Auto 52.2 % (45-73); Platelet Count 183 X10*3/uL (160-400); Red Cell Distribution Width 17.8 % (11.0-16.0)
[2022-02-28 07:24] LABS: Anion Gap 10 (12-20); Blood Urea Nitrogen 14 mg/dL (9-16); Calcium 8.3 mg/dL (8.4-10.2); Carbon Dioxide 27 mmol/L (22-29); Chloride 108 mmol/L (96-108); Estimated Glomerular Filt Rate > 60; Glucose Random 80 mg/dL (60-115); Potassium 3.7 mmol/L (3.3-5.1); Sodium 141 mmol/L (135-145)
== END 2022-02-28 06:17 | disposition home or self-care (01) ==
LOC: HO.MMNH3L 06:16
PROVIDERS: Visit Provider Family Medicine
DX: D64.9 Anemia, unspecified (principal); J44.9 Chronic obstructive pulmonary disease, unspecified
CPT/HCPCS: 36415; 80048; 85025

== ENCOUNTER 2022-03-07 09:24 | Outpatient (REF) | payer OTHER, SELFPAY ==
[2022-03-07 06:43] LABS: MANUAL DIFF FLAG NO
[2022-03-07 06:52] LABS: Basophils Percent Auto 0.7 % (0-2); Eosinophils Absolute Auto 0.5 X10*3/uL (0.0-0.4); Eosinophils Percent Auto 11.3 % (0-4); Hematocrit 39.6 % (42.0-52.0); Imm Gran Abs Auto 0.01 X10*3/uL (0.00-0.03); Imm Gran Pct Auto 0.2 % (0.0-0.4); Lymphocytes Absolute Auto 1.4 X10*3/uL (1.2-4.9); Lymphocytes Percent Auto 29.3 % (20-40); Mean Corpuscular HGB Conc 32.8 g/dl (31.0-36.0); Mean Corpuscular Hemoglobin 28.1 pg (27.0-33.0); Mean Corpuscular Volume 85.7 fL (80.0-98.0); Mean Platelet Volume 10.2 fL (9.4-12.4); Monocytes Absolute Auto 0.5 X10*3/uL (0.1-1.2); Monocytes Percent Auto 9.8 % (2-11); Neutrophils Absolute Auto 2.3 x10*3/uL (2.0-8.3); Neutrophils Percent Auto 48.7 % (45-73); Platelet Count 181 X10*3/uL (160-400); Red Blood Count 4.62 X10*6/uL (4.60-5.80); Red Cell Distribution Width 17.5 % (11.0-16.0); White Blood Count 4.6 X10*3/uL (4.8-10.8)
[2022-03-07 07:13] LABS: Anion Gap 11 (12-20); Blood Urea Nitrogen 14 mg/dL (9-16); Calcium 8.5 mg/dL (8.4-10.2); Carbon Dioxide 27 mmol/L (22-29); Chloride 107 mmol/L (96-108); Estimated Glomerular Filt Rate > 60; Glucose Random 89 mg/dL (60-115); Potassium 3.9 mmol/L (3.3-5.1); Sodium 141 mmol/L (135-145)
== END 2022-03-07 09:25 | disposition home or self-care (01) ==
LOC: HO.MMNH3L 09:24
PROVIDERS: Visit Provider Family Medicine
DX: D64.9 Anemia, unspecified (principal); E78.5 Hyperlipidemia, unspecified; J44.9 Chronic obstructive pulmonary disease, unspecified
CPT/HCPCS: 36415; 80048; 85025

== ENCOUNTER 2022-03-14 06:22 | Outpatient (REF) | payer OTHER, SELFPAY ==
[2022-03-14 07:16] LABS: Hematocrit 38.6 % (42.0-52.0); Hemoglobin 12.6 g/dl (14.0-18.0); Mean Corpuscular HGB Conc 32.6 g/dl (31.0-36.0); Mean Corpuscular Hemoglobin 28.5 pg (27.0-33.0); Mean Corpuscular Volume 87.3 fL (80.0-98.0); Mean Platelet Volume 10.2 fL (9.4-12.4); Platelet Count 172 X10*3/uL (160-400); Red Blood Count 4.42 X10*6/uL (4.60-5.80); Red Cell Distribution Width 17.1 % (11.0-16.0); White Blood Count 4.6 X10*3/uL (4.8-10.8)
[2022-03-14 07:18] LABS: Anion Gap 9 (12-20); Blood Urea Nitrogen 12 mg/dL (9-16); Calcium 8.8 mg/dL (8.4-10.2); Carbon Dioxide 30 mmol/L (22-29); Chloride 108 mmol/L (96-108); Estimated Glomerular Filt Rate > 60; Glucose Random 85 mg/dL (60-115); Potassium 3.8 mmol/L (3.3-5.1); Sodium 143 mmol/L (135-145)
== END 2022-03-14 06:23 | disposition home or self-care (01) ==
LOC: HO.MMNH3L 06:22
PROVIDERS: Visit Provider Family Medicine
DX: D64.9 Anemia, unspecified (principal); E78.5 Hyperlipidemia, unspecified; J44.9 Chronic obstructive pulmonary disease, unspecified
CPT/HCPCS: 36415; 80048; 85027

== ENCOUNTER 2022-03-22 06:59 | Outpatient (REF) | payer OTHER, SELFPAY ==
[2022-03-22 07:01] LABS: Hematocrit 40.6 % (42.0-52.0); Hemoglobin 13.3 g/dl (14.0-18.0); Mean Corpuscular HGB Conc 32.8 g/dl (31.0-36.0); Mean Corpuscular Hemoglobin 29.2 pg (27.0-33.0); Mean Platelet Volume 10.1 fL (9.4-12.4); Platelet Count 185 X10*3/uL (160-400); Red Blood Count 4.56 X10*6/uL (4.60-5.80); Red Cell Distribution Width 16.4 % (11.0-16.0); White Blood Count 4.8 X10*3/uL (4.8-10.8)
[2022-03-22 07:16] LABS: Anion Gap 9 (12-20); Blood Urea Nitrogen 13 mg/dL (9-16); Calcium 8.7 mg/dL (8.4-10.2); Carbon Dioxide 29 mmol/L (22-29); Chloride 107 mmol/L (96-108); Estimated Glomerular Filt Rate > 60; Glucose Random 90 mg/dL (60-115); Potassium 3.6 mmol/L (3.3-5.1); Sodium 141 mmol/L (135-145)
== END 2022-03-22 07:00 | disposition home or self-care (01) ==
LOC: HO.MMNH3L 06:59
PROVIDERS: Visit Provider Family Medicine
DX: D64.9 Anemia, unspecified (principal); E78.5 Hyperlipidemia, unspecified; J44.9 Chronic obstructive pulmonary disease, unspecified
CPT/HCPCS: 36415; 80048; 85027

== ENCOUNTER 2022-03-28 06:25 | Outpatient (REF) | payer OTHER, SELFPAY ==
[2022-03-28 06:30] LABS: MANUAL DIFF FLAG NO
[2022-03-28 06:42] LABS: Basophils Percent Auto 0.6 % (0-2); Eosinophils Absolute Auto 0.3 X10*3/uL (0.0-0.4); Eosinophils Percent Auto 6.5 % (0-4); Hematocrit 38.4 % (42.0-52.0); Hemoglobin 12.6 g/dl (14.0-18.0); Imm Gran Abs Auto 0.01 X10*3/uL (0.00-0.03); Imm Gran Pct Auto 0.2 % (0.0-0.4); Lymphocytes Absolute Auto 1.4 X10*3/uL (1.2-4.9); Lymphocytes Percent Auto 27.2 % (20-40); Mean Corpuscular HGB Conc 32.8 g/dl (31.0-36.0); Mean Corpuscular Hemoglobin 29.2 pg (27.0-33.0); Mean Corpuscular Volume 88.9 fL (80.0-98.0); Mean Platelet Volume 10.2 fL (9.4-12.4); Monocytes Absolute Auto 0.4 X10*3/uL (0.1-1.2); Monocytes Percent Auto 8.1 % (2-11); Neutrophils Absolute Auto 2.9 x10*3/uL (2.0-8.3); Neutrophils Percent Auto 57.4 % (45-73); Platelet Count 181 X10*3/uL (160-400); Red Blood Count 4.32 X10*6/uL (4.60-5.80); Red Cell Distribution Width 15.7 % (11.0-16.0); White Blood Count 5.1 X10*3/uL (4.8-10.8)
[2022-03-28 07:23] LABS: Anion Gap 10 (12-20); Blood Urea Nitrogen 17 mg/dL (9-16); Calcium 8.4 mg/dL (8.4-10.2); Carbon Dioxide 28 mmol/L (22-29); Chloride 106 mmol/L (96-108); Estimated Glomerular Filt Rate > 60; Glucose Random 91 mg/dL (60-115); Potassium 3.6 mmol/L (3.3-5.1); Sodium 140 mmol/L (135-145)
== END 2022-03-28 06:26 | disposition home or self-care (01) ==
LOC: HO.MMNH3L 06:25
PROVIDERS: Visit Provider Family Medicine
DX: D64.9 Anemia, unspecified (principal); E78.5 Hyperlipidemia, unspecified; J44.9 Chronic obstructive pulmonary disease, unspecified
CPT/HCPCS: 36415; 80048; 85025

== ENCOUNTER 2022-04-04 06:50 | Outpatient (REF) | payer OTHER, SELFPAY ==
[2022-04-04 06:47] LABS: Hematocrit 40.6 % (42.0-52.0); Hemoglobin 13.3 g/dl (14.0-18.0); Mean Corpuscular HGB Conc 32.8 g/dl (31.0-36.0); Mean Corpuscular Hemoglobin 29.2 pg (27.0-33.0); Mean Platelet Volume 10.6 fL (9.4-12.4); Platelet Count 190 X10*3/uL (160-400); Red Blood Count 4.56 X10*6/uL (4.60-5.80); Red Cell Distribution Width 14.8 % (11.0-16.0); White Blood Count 6.7 X10*3/uL (4.8-10.8)
[2022-04-04 07:18] LABS: Anion Gap 10 (12-20); Blood Urea Nitrogen 13 mg/dL (9-16); Calcium 8.2 mg/dL (8.4-10.2); Carbon Dioxide 28 mmol/L (22-29); Chloride 107 mmol/L (96-108); Estimated Glomerular Filt Rate > 60; Glucose Random 97 mg/dL (60-115); Potassium 3.8 mmol/L (3.3-5.1); Sodium 141 mmol/L (135-145)
== END 2022-04-04 06:51 | disposition home or self-care (01) ==
LOC: HO.MMNH3L 06:50
PROVIDERS: Visit Provider Family Medicine
DX: J44.9 Chronic obstructive pulmonary disease, unspecified (principal); J45.909 Unspecified asthma, uncomplicated; G89.4 Chronic pain syndrome
CPT/HCPCS: 36415; 80048; 85027

== ENCOUNTER 2022-04-11 06:13 | Outpatient (REF) | payer OTHER, SELFPAY ==
[2022-04-11 06:24] LABS: MANUAL DIFF FLAG NO
[2022-04-11 06:48] LABS: Basophils Percent Auto 0.5 % (0-2); Eosinophils Absolute Auto 0.2 X10*3/uL (0.0-0.4); Eosinophils Percent Auto 3.8 % (0-4); Hematocrit 36.6 % (42.0-52.0); Hemoglobin 11.8 g/dl (14.0-18.0); Imm Gran Abs Auto 0.02 X10*3/uL (0.00-0.03); Imm Gran Pct Auto 0.5 % (0.0-0.4); Lymphocytes Absolute Auto 1.2 X10*3/uL (1.2-4.9); Lymphocytes Percent Auto 28.2 % (20-40); Mean Corpuscular HGB Conc 32.2 g/dl (31.0-36.0); Mean Corpuscular Volume 89.9 fL (80.0-98.0); Mean Platelet Volume 10.1 fL (9.4-12.4); Monocytes Absolute Auto 0.6 X10*3/uL (0.1-1.2); Monocytes Percent Auto 13.1 % (2-11); Neutrophils Absolute Auto 2.3 x10*3/uL (2.0-8.3); Neutrophils Percent Auto 53.9 % (45-73); Platelet Count 186 X10*3/uL (160-400); Red Blood Count 4.07 X10*6/uL (4.60-5.80); Red Cell Distribution Width 14.3 % (11.0-16.0); White Blood Count 4.3 X10*3/uL (4.8-10.8)
[2022-04-11 07:20] LABS: Anion Gap 10 (12-20); Blood Urea Nitrogen 16 mg/dL (9-16); Calcium 8.4 mg/dL (8.4-10.2); Carbon Dioxide 29 mmol/L (22-29); Chloride 106 mmol/L (96-108); Estimated Glomerular Filt Rate > 60; Glucose Random 99 mg/dL (60-115); Potassium 3.6 mmol/L (3.3-5.1); Sodium 141 mmol/L (135-145)
== END 2022-04-11 06:14 | disposition home or self-care (01) ==
LOC: HO.MMNH3L 06:13
PROVIDERS: Visit Provider Family Medicine
DX: D64.9 Anemia, unspecified (principal); E78.5 Hyperlipidemia, unspecified; J44.9 Chronic obstructive pulmonary disease, unspecified
CPT/HCPCS: 36415; 80048; 85025

== ENCOUNTER 2022-04-18 06:47 | Outpatient (REF) | payer OTHER, SELFPAY ==
[2022-04-18 06:24] LABS: MANUAL DIFF FLAG NO
[2022-04-18 06:52] LABS: Basophils Percent Auto 0.5 % (0-2); Eosinophils Absolute Auto 0.2 X10*3/uL (0.0-0.4); Eosinophils Percent Auto 3.5 % (0-4); Hematocrit 37.9 % (42.0-52.0); Hemoglobin 12.4 g/dl (14.0-18.0); Imm Gran Abs Auto 0.04 X10*3/uL (0.00-0.03); Imm Gran Pct Auto 0.7 % (0.0-0.4); Lymphocytes Absolute Auto 1.2 X10*3/uL (1.2-4.9); Lymphocytes Percent Auto 22.5 % (20-40); Mean Corpuscular HGB Conc 32.7 g/dl (31.0-36.0); Mean Corpuscular Hemoglobin 29.4 pg (27.0-33.0); Mean Corpuscular Volume 89.8 fL (80.0-98.0); Mean Platelet Volume 9.4 fL (9.4-12.4); Monocytes Absolute Auto 0.4 X10*3/uL (0.1-1.2); Monocytes Percent Auto 7.5 % (2-11); Neutrophils Absolute Auto 3.6 x10*3/uL (2.0-8.3); Neutrophils Percent Auto 65.3 % (45-73); Platelet Count 245 X10*3/uL (160-400); Red Blood Count 4.22 X10*6/uL (4.60-5.80); Red Cell Distribution Width 14.1 % (11.0-16.0); White Blood Count 5.5 X10*3/uL (4.8-10.8)
[2022-04-18 07:10] LABS: Anion Gap 13 (12-20); Blood Urea Nitrogen 14 mg/dL (9-16); Calcium 8.4 mg/dL (8.4-10.2); Carbon Dioxide 27 mmol/L (22-29); Chloride 107 mmol/L (96-108); Estimated Glomerular Filt Rate > 60; Glucose Random 93 mg/dL (60-115); Potassium 3.7 mmol/L (3.3-5.1); Sodium 143 mmol/L (135-145)
== END 2022-04-18 06:48 | disposition home or self-care (01) ==
LOC: HO.MMNH3L 06:47
PROVIDERS: Visit Provider Family Medicine
DX: D64.9 Anemia, unspecified (principal); E78.5 Hyperlipidemia, unspecified; J44.9 Chronic obstructive pulmonary disease, unspecified
CPT/HCPCS: 36415; 80048; 85025

== ENCOUNTER 2022-04-25 06:32 | Outpatient (REF) | payer OTHER, SELFPAY ==
[2022-04-25 06:25] LABS: MANUAL DIFF FLAG NO
[2022-04-25 07:09] LABS: Basophils Percent Auto 0.9 % (0-2); Eosinophils Absolute Auto 0.2 X10*3/uL (0.0-0.4); Eosinophils Percent Auto 4.8 % (0-4); Hematocrit 38.4 % (42.0-52.0); Hemoglobin 12.7 g/dl (14.0-18.0); Imm Gran Abs Auto 0.02 X10*3/uL (0.00-0.03); Imm Gran Pct Auto 0.4 % (0.0-0.4); Lymphocytes Absolute Auto 1.4 X10*3/uL (1.2-4.9); Lymphocytes Percent Auto 30.7 % (20-40); Mean Corpuscular HGB Conc 33.1 g/dl (31.0-36.0); Mean Corpuscular Hemoglobin 29.7 pg (27.0-33.0); Mean Corpuscular Volume 89.7 fL (80.0-98.0); Monocytes Absolute Auto 0.4 X10*3/uL (0.1-1.2); Monocytes Percent Auto 8.1 % (2-11); Neutrophils Absolute Auto 2.5 x10*3/uL (2.0-8.3); Neutrophils Percent Auto 55.1 % (45-73); Platelet Count 227 X10*3/uL (160-400); Red Blood Count 4.28 X10*6/uL (4.60-5.80); Red Cell Distribution Width 13.8 % (11.0-16.0); White Blood Count 4.6 X10*3/uL (4.8-10.8)
[2022-04-25 07:24] LABS: Anion Gap 12 (12-20); Blood Urea Nitrogen 12 mg/dL (9-16); Calcium 8.2 mg/dL (8.4-10.2); Carbon Dioxide 26 mmol/L (22-29); Chloride 109 mmol/L (96-108); Estimated Glomerular Filt Rate > 60; Glucose Random 77 mg/dL (60-115); Potassium 3.8 mmol/L (3.3-5.1); Sodium 143 mmol/L (135-145)
== END 2022-04-25 06:33 | disposition home or self-care (01) ==
LOC: HO.MMNH3L 06:32
PROVIDERS: Visit Provider Family Medicine
DX: D64.9 Anemia, unspecified (principal); E78.5 Hyperlipidemia, unspecified; J44.9 Chronic obstructive pulmonary disease, unspecified
CPT/HCPCS: 36415; 80048; 85025

== ENCOUNTER 2022-05-02 06:23 | Outpatient (REF) | payer OTHER, SELFPAY ==
[2022-05-02 06:14] LABS: MANUAL DIFF FLAG NO
[2022-05-02 06:20] LABS: Basophils Percent Auto 0.6 % (0-2); Eosinophils Absolute Auto 0.3 X10*3/uL (0.0-0.4); Eosinophils Percent Auto 5.6 % (0-4); Hematocrit 37.7 % (42.0-52.0); Hemoglobin 12.4 g/dl (14.0-18.0); Imm Gran Abs Auto 0.02 X10*3/uL (0.00-0.03); Imm Gran Pct Auto 0.4 % (0.0-0.4); Lymphocytes Absolute Auto 1.5 X10*3/uL (1.2-4.9); Lymphocytes Percent Auto 31.6 % (20-40); Mean Corpuscular HGB Conc 32.9 g/dl (31.0-36.0); Mean Corpuscular Hemoglobin 29.6 pg (27.0-33.0); Mean Platelet Volume 10.6 fL (9.4-12.4); Monocytes Absolute Auto 0.4 X10*3/uL (0.1-1.2); Monocytes Percent Auto 9.3 % (2-11); Neutrophils Absolute Auto 2.4 x10*3/uL (2.0-8.3); Neutrophils Percent Auto 52.5 % (45-73); Platelet Count 205 X10*3/uL (160-400); Red Blood Count 4.19 X10*6/uL (4.60-5.80); Red Cell Distribution Width 13.6 % (11.0-16.0); White Blood Count 4.6 X10*3/uL (4.8-10.8)
[2022-05-02 07:15] LABS: Anion Gap 14 (12-20); Blood Urea Nitrogen 20 mg/dL (9-16); Calcium 8.1 mg/dL (8.4-10.2); Carbon Dioxide 28 mmol/L (22-29); Chloride 106 mmol/L (96-108); Estimated Glomerular Filt Rate > 60; Glucose Random 117 mg/dL (60-115); Potassium 3.6 mmol/L (3.3-5.1); Sodium 144 mmol/L (135-145)
== END 2022-05-02 06:24 | disposition home or self-care (01) ==
LOC: HO.MMNH3L 06:23
PROVIDERS: Visit Provider Family Medicine
DX: D64.9 Anemia, unspecified (principal); E78.5 Hyperlipidemia, unspecified; J44.9 Chronic obstructive pulmonary disease, unspecified
CPT/HCPCS: 36415; 80048; 85025

== ENCOUNTER 2022-05-09 06:17 | Outpatient (REF) | payer OTHER, SELFPAY ==
[2022-05-09 06:16] LABS: MANUAL DIFF FLAG NO
[2022-05-09 06:58] LABS: Basophils Percent Auto 0.7 % (0-2); Eosinophils Absolute Auto 0.3 X10*3/uL (0.0-0.4); Eosinophils Percent Auto 6.6 % (0-4); Hematocrit 38.7 % (42.0-52.0); Hemoglobin 12.7 g/dl (14.0-18.0); Imm Gran Abs Auto 0.01 X10*3/uL (0.00-0.03); Imm Gran Pct Auto 0.2 % (0.0-0.4); Lymphocytes Absolute Auto 1.3 X10*3/uL (1.2-4.9); Lymphocytes Percent Auto 29.5 % (20-40); Mean Corpuscular HGB Conc 32.8 g/dl (31.0-36.0); Mean Corpuscular Hemoglobin 29.5 pg (27.0-33.0); Mean Corpuscular Volume 89.8 fL (80.0-98.0); Mean Platelet Volume 10.8 fL (9.4-12.4); Monocytes Absolute Auto 0.4 X10*3/uL (0.1-1.2); Monocytes Percent Auto 8.4 % (2-11); Neutrophils Absolute Auto 2.4 x10*3/uL (2.0-8.3); Neutrophils Percent Auto 54.6 % (45-73); Platelet Count 147 X10*3/uL (160-400); Red Blood Count 4.31 X10*6/uL (4.60-5.80); Red Cell Distribution Width 13.4 % (11.0-16.0); White Blood Count 4.4 X10*3/uL (4.8-10.8)
[2022-05-09 07:30] LABS: Anion Gap 13 (12-20); Blood Urea Nitrogen 13 mg/dL (9-16); Calcium 8.3 mg/dL (8.4-10.2); Carbon Dioxide 27 mmol/L (22-29); Chloride 107 mmol/L (96-108); Estimated Glomerular Filt Rate > 60; Glucose Random 80 mg/dL (60-115); Potassium 3.6 mmol/L (3.3-5.1); Sodium 143 mmol/L (135-145)
== END 2022-05-09 06:18 | disposition home or self-care (01) ==
LOC: HO.MMNH1L 06:17
PROVIDERS: Visit Provider Family Medicine
DX: D64.9 Anemia, unspecified (principal); E78.5 Hyperlipidemia, unspecified; J44.9 Chronic obstructive pulmonary disease, unspecified
CPT/HCPCS: 36415; 80048; 85025

== ENCOUNTER 2022-05-16 06:33 | Outpatient (REF) | payer OTHER, SELFPAY ==
[2022-05-16 06:31] LABS: MANUAL DIFF FLAG NO
[2022-05-16 06:33] LABS: Basophils Percent Auto 0.6 % (0-2); Eosinophils Absolute Auto 0.4 X10*3/uL (0.0-0.4); Eosinophils Percent Auto 7.5 % (0-4); Hematocrit 38.3 % (42.0-52.0); Hemoglobin 12.5 g/dl (14.0-18.0); Lymphocytes Absolute Auto 1.5 X10*3/uL (1.2-4.9); Lymphocytes Percent Auto 30.8 % (20-40); Mean Corpuscular HGB Conc 32.6 g/dl (31.0-36.0); Mean Corpuscular Hemoglobin 28.9 pg (27.0-33.0); Mean Corpuscular Volume 88.7 fL (80.0-98.0); Mean Platelet Volume 10.5 fL (9.4-12.4); Monocytes Absolute Auto 0.4 X10*3/uL (0.1-1.2); Monocytes Percent Auto 9.2 % (2-11); Neutrophils Absolute Auto 2.5 x10*3/uL (2.0-8.3); Neutrophils Percent Auto 51.9 % (45-73); Platelet Count 134 X10*3/uL (160-400); Red Blood Count 4.32 X10*6/uL (4.60-5.80); Red Cell Distribution Width 13.4 % (11.0-16.0); White Blood Count 4.8 X10*3/uL (4.8-10.8)
[2022-05-16 06:57] LABS: Anion Gap 13 (12-20); Blood Urea Nitrogen 14 mg/dL (9-16); Calcium 8.2 mg/dL (8.4-10.2); Carbon Dioxide 26 mmol/L (22-29); Chloride 109 mmol/L (96-108); Estimated Glomerular Filt Rate > 60; Glucose Random 78 mg/dL (60-115); Potassium 3.5 mmol/L (3.3-5.1); Sodium 144 mmol/L (135-145)
== END 2022-05-16 06:34 | disposition home or self-care (01) ==
LOC: HO.MMNH1L 06:33
PROVIDERS: Visit Provider Family Medicine
DX: D64.9 Anemia, unspecified (principal); E78.5 Hyperlipidemia, unspecified; J44.9 Chronic obstructive pulmonary disease, unspecified
CPT/HCPCS: 36415; 80048; 85025

== ENCOUNTER 2022-05-24 06:31 | Outpatient (REF) | payer OTHER, SELFPAY ==
[2022-05-24 06:32] LABS: MANUAL DIFF FLAG NO
[2022-05-24 06:58] LABS: Basophils Percent Auto 0.6 % (0-2); Eosinophils Absolute Auto 0.3 X10*3/uL (0.0-0.4); Eosinophils Percent Auto 5.7 % (0-4); Hemoglobin 12.8 g/dl (14.0-18.0); Imm Gran Abs Auto 0.01 X10*3/uL (0.00-0.03); Imm Gran Pct Auto 0.2 % (0.0-0.4); Lymphocytes Absolute Auto 1.6 X10*3/uL (1.2-4.9); Lymphocytes Percent Auto 33.3 % (20-40); Mean Corpuscular HGB Conc 32.8 g/dl (31.0-36.0); Mean Corpuscular Hemoglobin 29.2 pg (27.0-33.0); Mean Platelet Volume 10.4 fL (9.4-12.4); Monocytes Absolute Auto 0.4 X10*3/uL (0.1-1.2); Monocytes Percent Auto 9.3 % (2-11); Neutrophils Absolute Auto 2.4 x10*3/uL (2.0-8.3); Neutrophils Percent Auto 50.9 % (45-73); Platelet Count 173 X10*3/uL (160-400); Red Blood Count 4.38 X10*6/uL (4.60-5.80); Red Cell Distribution Width 13.3 % (11.0-16.0); White Blood Count 4.7 X10*3/uL (4.8-10.8)
[2022-05-24 07:57] LABS: Anion Gap 14 (12-20); Blood Urea Nitrogen 15 mg/dL (9-16); Calcium 8.4 mg/dL (8.4-10.2); Carbon Dioxide 27 mmol/L (22-29); Chloride 107 mmol/L (96-108); Estimated Glomerular Filt Rate > 60; Glucose Random 82 mg/dL (60-115); Potassium 3.5 mmol/L (3.3-5.1); Sodium 144 mmol/L (135-145)
== END 2022-05-24 06:32 | disposition home or self-care (01) ==
LOC: HO.MMNH1L 06:31
PROVIDERS: Visit Provider Family Medicine
DX: D64.9 Anemia, unspecified (principal); E78.5 Hyperlipidemia, unspecified; J44.9 Chronic obstructive pulmonary disease, unspecified
CPT/HCPCS: 36415; 80048; 85025

== ENCOUNTER 2022-05-30 06:53 | Outpatient (REF) | payer OTHER, SELFPAY ==
[2022-05-30 07:01] LABS: Hematocrit 39.2 % (42.0-52.0); Hemoglobin 12.9 g/dl (14.0-18.0); Mean Corpuscular HGB Conc 32.9 g/dl (31.0-36.0); Mean Corpuscular Hemoglobin 29.3 pg (27.0-33.0); Mean Corpuscular Volume 88.9 fL (80.0-98.0); Mean Platelet Volume 10.5 fL (9.4-12.4); Platelet Count 177 X10*3/uL (160-400); Red Blood Count 4.41 X10*6/uL (4.60-5.80); Red Cell Distribution Width 13.5 % (11.0-16.0); White Blood Count 4.7 X10*3/uL (4.8-10.8)
[2022-05-30 07:33] LABS: Anion Gap 13 (12-20); Blood Urea Nitrogen 11 mg/dL (9-16); Calcium 8.3 mg/dL (8.4-10.2); Carbon Dioxide 27 mmol/L (22-29); Chloride 105 mmol/L (96-108); Estimated Glomerular Filt Rate > 60; Glucose Random 94 mg/dL (60-115); Potassium 3.7 mmol/L (3.3-5.1); Sodium 141 mmol/L (135-145)
== END 2022-05-30 06:54 | disposition home or self-care (01) ==
LOC: HO.MMNH1L 06:53
PROVIDERS: Visit Provider Family Medicine
DX: D64.9 Anemia, unspecified (principal); E78.5 Hyperlipidemia, unspecified; J44.9 Chronic obstructive pulmonary disease, unspecified
CPT/HCPCS: 36415; 80048; 85027

== ENCOUNTER 2022-06-06 06:27 | Outpatient (REF) | payer OTHER, SELFPAY ==
[2022-06-06 06:51] LABS: Hematocrit 39.7 % (42.0-52.0); Hemoglobin 13.1 g/dl (14.0-18.0); Mean Corpuscular Hemoglobin 29.2 pg (27.0-33.0); Mean Corpuscular Volume 88.4 fL (80.0-98.0); Mean Platelet Volume 10.2 fL (9.4-12.4); Platelet Count 192 X10*3/uL (160-400); Red Blood Count 4.49 X10*6/uL (4.60-5.80); Red Cell Distribution Width 13.4 % (11.0-16.0); White Blood Count 4.6 X10*3/uL (4.8-10.8)
[2022-06-06 07:08] LABS: Anion Gap 13 (12-20); Blood Urea Nitrogen 16 mg/dL (9-16); Calcium 8.4 mg/dL (8.4-10.2); Carbon Dioxide 27 mmol/L (22-29); Chloride 107 mmol/L (96-108); Estimated Glomerular Filt Rate > 60; Glucose Random 82 mg/dL (60-115); Potassium 3.7 mmol/L (3.3-5.1); Sodium 143 mmol/L (135-145)
== END 2022-06-06 06:28 | disposition home or self-care (01) ==
LOC: HO.MMNH1L 06:27
PROVIDERS: Visit Provider Family Medicine
DX: D64.9 Anemia, unspecified (principal); E78.5 Hyperlipidemia, unspecified; J44.9 Chronic obstructive pulmonary disease, unspecified
CPT/HCPCS: 36415; 80048; 85027

== ENCOUNTER 2022-06-13 06:37 | Outpatient (REF) | payer OTHER, SELFPAY ==
[2022-06-13 06:37] LABS: MANUAL DIFF FLAG NO
[2022-06-13 06:49] LABS: Basophils Percent Auto 0.7 % (0-2); Eosinophils Absolute Auto 0.3 X10*3/uL (0.0-0.4); Eosinophils Percent Auto 6.3 % (0-4); Hemoglobin 13.6 g/dl (14.0-18.0); Imm Gran Abs Auto 0.02 X10*3/uL (0.00-0.03); Imm Gran Pct Auto 0.4 % (0.0-0.4); Lymphocytes Absolute Auto 1.5 X10*3/uL (1.2-4.9); Lymphocytes Percent Auto 28.1 % (20-40); Mean Corpuscular HGB Conc 33.2 g/dl (31.0-36.0); Mean Corpuscular Hemoglobin 29.5 pg (27.0-33.0); Mean Corpuscular Volume 88.9 fL (80.0-98.0); Mean Platelet Volume 10.1 fL (9.4-12.4); Monocytes Absolute Auto 0.5 X10*3/uL (0.1-1.2); Monocytes Percent Auto 8.4 % (2-11); Neutrophils Percent Auto 56.1 % (45-73); Platelet Count 164 X10*3/uL (160-400); Red Blood Count 4.61 X10*6/uL (4.60-5.80); Red Cell Distribution Width 13.5 % (11.0-16.0); White Blood Count 5.4 X10*3/uL (4.8-10.8)
[2022-06-13 07:22] LABS: Anion Gap 14 (12-20); Blood Urea Nitrogen 13 mg/dL (9-16); Calcium 8.5 mg/dL (8.4-10.2); Carbon Dioxide 26 mmol/L (22-29); Chloride 105 mmol/L (96-108); Estimated Glomerular Filt Rate > 60; Glucose Random 78 mg/dL (60-115); Potassium 3.4 mmol/L (3.3-5.1); Sodium 142 mmol/L (135-145)
== END 2022-06-13 06:38 | disposition home or self-care (01) ==
LOC: HO.MMNH1L 06:37
PROVIDERS: Visit Provider Family Medicine
DX: J44.9 Chronic obstructive pulmonary disease, unspecified (principal); G89.4 Chronic pain syndrome
CPT/HCPCS: 36415; 80048; 85025

== ENCOUNTER 2022-06-20 07:36 | Outpatient (REF) | payer OTHER, SELFPAY ==
[2022-06-20 07:28] LABS: MANUAL DIFF FLAG NO
[2022-06-20 07:35] LABS: Basophils Percent Auto 0.4 % (0-2); Eosinophils Percent Auto 0.4 % (0-4); Hematocrit 39.8 % (42.0-52.0); Imm Gran Abs Auto 0.01 X10*3/uL (0.00-0.03); Imm Gran Pct Auto 0.4 % (0.0-0.4); Lymphocytes Absolute Auto 0.7 X10*3/uL (1.2-4.9); Lymphocytes Percent Auto 25.9 % (20-40); Mean Corpuscular HGB Conc 32.7 g/dl (31.0-36.0); Mean Corpuscular Hemoglobin 28.8 pg (27.0-33.0); Mean Corpuscular Volume 88.2 fL (80.0-98.0); Mean Platelet Volume 10.6 fL (9.4-12.4); Monocytes Absolute Auto 0.3 X10*3/uL (0.1-1.2); Monocytes Percent Auto 12.8 % (2-11); Neutrophils Absolute Auto 1.6 x10*3/uL (2.0-8.3); Neutrophils Percent Auto 60.1 % (45-73); Platelet Count 157 X10*3/uL (160-400); Red Blood Count 4.51 X10*6/uL (4.60-5.80); Red Cell Distribution Width 13.7 % (11.0-16.0); White Blood Count 2.7 X10*3/uL (4.8-10.8)
[2022-06-20 08:24] LABS: Anion Gap 14 (12-20); Blood Urea Nitrogen 13 mg/dL (9-16); Calcium 8.3 mg/dL (8.4-10.2); Carbon Dioxide 25 mmol/L (22-29); Chloride 108 mmol/L (96-108); Estimated Glomerular Filt Rate > 60; Glucose Random 98 mg/dL (60-115); Sodium 143 mmol/L (135-145)
== END 2022-06-20 07:37 | disposition home or self-care (01) ==
LOC: HO.MMNH1L 07:36
PROVIDERS: Visit Provider Family Medicine
DX: D64.9 Anemia, unspecified (principal); E78.5 Hyperlipidemia, unspecified; J44.9 Chronic obstructive pulmonary disease, unspecified
CPT/HCPCS: 36415; 80048; 85025

== ENCOUNTER 2022-07-18 06:20 | Outpatient (REF) | payer OTHER, SELFPAY ==
[2022-07-18 06:48] LABS: Hematocrit 37.7 % (42.0-52.0); Hemoglobin 12.3 g/dl (14.0-18.0); Mean Corpuscular HGB Conc 32.6 g/dl (31.0-36.0); Mean Corpuscular Hemoglobin 29.4 pg (27.0-33.0); Mean Platelet Volume 10.6 fL (9.4-12.4); Platelet Count 160 X10*3/uL (160-400); Red Blood Count 4.19 X10*6/uL (4.60-5.80); Red Cell Distribution Width 14.6 % (11.0-16.0); White Blood Count 4.1 X10*3/uL (4.8-10.8)
[2022-07-18 07:05] LABS: Anion Gap 15 (12-20); Blood Urea Nitrogen 11 mg/dL (9-16); Calcium 8.4 mg/dL (8.4-10.2); Carbon Dioxide 26 mmol/L (22-29); Chloride 107 mmol/L (96-108); Estimated Glomerular Filt Rate > 60; Glucose Random 88 mg/dL (60-115); Potassium 3.5 mmol/L (3.3-5.1); Sodium 144 mmol/L (135-145)
== END 2022-07-18 06:21 | disposition home or self-care (01) ==
LOC: HO.MMNH1L 06:20
PROVIDERS: Visit Provider Family Medicine
DX: J44.9 Chronic obstructive pulmonary disease, unspecified (principal); J45.909 Unspecified asthma, uncomplicated; G89.4 Chronic pain syndrome
CPT/HCPCS: 36415; 80048; 85027

== ENCOUNTER 2022-08-22 07:21 | Outpatient (REF) | payer OTHER, SELFPAY ==
[2022-08-22 07:04] LABS: MANUAL DIFF FLAG NO
[2022-08-22 07:45] LABS: Basophils Percent Auto 0.6 % (0-2); Eosinophils Absolute Auto 0.3 X10*3/uL (0.0-0.4); Eosinophils Percent Auto 6.7 % (0-4); Hematocrit 38.7 % (42.0-52.0); Hemoglobin 12.8 g/dl (14.0-18.0); Imm Gran Abs Auto 0.01 X10*3/uL (0.00-0.03); Imm Gran Pct Auto 0.2 % (0.0-0.4); Lymphocytes Absolute Auto 1.5 X10*3/uL (1.2-4.9); Lymphocytes Percent Auto 30.5 % (20-40); Mean Corpuscular HGB Conc 33.1 g/dl (31.0-36.0); Mean Corpuscular Volume 90.6 fL (80.0-98.0); Mean Platelet Volume 10.3 fL (9.4-12.4); Monocytes Absolute Auto 0.4 X10*3/uL (0.1-1.2); Monocytes Percent Auto 9.3 % (2-11); Neutrophils Absolute Auto 2.5 x10*3/uL (2.0-8.3); Neutrophils Percent Auto 52.7 % (45-73); Platelet Count 177 X10*3/uL (160-400); Red Blood Count 4.27 X10*6/uL (4.60-5.80); White Blood Count 4.8 X10*3/uL (4.8-10.8)
[2022-08-22 08:15] LABS: Anion Gap 13 (12-20); Blood Urea Nitrogen 15 mg/dL (9-16); Calcium 8.2 mg/dL (8.4-10.2); Carbon Dioxide 26 mmol/L (22-29); Chloride 108 mmol/L (96-108); Estimated Glomerular Filt Rate > 60; Glucose Random 76 mg/dL (60-115); Potassium 3.6 mmol/L (3.3-5.1); Sodium 143 mmol/L (135-145)
== END 2022-08-22 07:22 | disposition home or self-care (01) ==
LOC: HO.MMNH1L 07:21
PROVIDERS: Visit Provider Family Medicine
DX: J44.9 Chronic obstructive pulmonary disease, unspecified (principal); G89.4 Chronic pain syndrome
CPT/HCPCS: 36415; 80048; 85025

== ENCOUNTER 2022-09-19 06:21 | Outpatient (REF) | payer OTHER, SELFPAY ==
[2022-09-19 06:23] LABS: MANUAL DIFF FLAG NO
[2022-09-19 06:37] LABS: Basophils Percent Auto 0.6 % (0-2); Eosinophils Absolute Auto 0.2 X10*3/uL (0.0-0.4); Eosinophils Percent Auto 4.7 % (0-4); Hematocrit 39.3 % (42.0-52.0); Hemoglobin 13.1 g/dl (14.0-18.0); Imm Gran Abs Auto 0.02 X10*3/uL (0.00-0.03); Imm Gran Pct Auto 0.4 % (0.0-0.4); Lymphocytes Absolute Auto 1.5 X10*3/uL (1.2-4.9); Lymphocytes Percent Auto 30.6 % (20-40); Mean Corpuscular HGB Conc 33.3 g/dl (31.0-36.0); Mean Corpuscular Hemoglobin 29.6 pg (27.0-33.0); Mean Corpuscular Volume 88.7 fL (80.0-98.0); Mean Platelet Volume 10.2 fL (9.4-12.4); Monocytes Absolute Auto 0.5 X10*3/uL (0.1-1.2); Monocytes Percent Auto 9.3 % (2-11); Neutrophils Absolute Auto 2.7 x10*3/uL (2.0-8.3); Neutrophils Percent Auto 54.4 % (45-73); Platelet Count 167 X10*3/uL (160-400); Red Blood Count 4.43 X10*6/uL (4.60-5.80); Red Cell Distribution Width 13.4 % (11.0-16.0); White Blood Count 4.9 X10*3/uL (4.8-10.8)
[2022-09-19 07:17] LABS: Anion Gap 11 (12-20); Blood Urea Nitrogen 17 mg/dL (9-16); Calcium 8.3 mg/dL (8.4-10.2); Carbon Dioxide 27 mmol/L (22-29); Chloride 107 mmol/L (96-108); Estimated Glomerular Filt Rate > 60; Glucose Random 82 mg/dL (60-115); Potassium 3.4 mmol/L (3.3-5.1); Sodium 142 mmol/L (135-145)
== END 2022-09-19 06:22 | disposition home or self-care (01) ==
LOC: HO.MMNH1L 06:21
PROVIDERS: Visit Provider Family Medicine
DX: J44.9 Chronic obstructive pulmonary disease, unspecified (principal); J45.909 Unspecified asthma, uncomplicated; G89.4 Chronic pain syndrome
CPT/HCPCS: 36415; 80048; 85025

== ENCOUNTER 2022-10-24 06:55 | Outpatient (REF) | payer OTHER, SELFPAY ==
[2022-10-24 06:41] LABS: MANUAL DIFF FLAG NO
[2022-10-24 07:11] LABS: Basophils Percent Auto 0.8 % (0-2); Eosinophils Absolute Auto 0.3 X10*3/uL (0.0-0.4); Eosinophils Percent Auto 5.5 % (0-4); Hematocrit 38.4 % (42.0-52.0); Hemoglobin 12.7 g/dl (14.0-18.0); Imm Gran Abs Auto 0.01 X10*3/uL (0.00-0.03); Imm Gran Pct Auto 0.2 % (0.0-0.4); Lymphocytes Absolute Auto 1.3 X10*3/uL (1.2-4.9); Mean Corpuscular HGB Conc 33.1 g/dl (31.0-36.0); Mean Corpuscular Hemoglobin 29.5 pg (27.0-33.0); Mean Corpuscular Volume 89.1 fL (80.0-98.0); Mean Platelet Volume 10.5 fL (9.4-12.4); Monocytes Absolute Auto 0.4 X10*3/uL (0.1-1.2); Monocytes Percent Auto 8.6 % (2-11); Neutrophils Percent Auto 58.9 % (45-73); Platelet Count 178 X10*3/uL (160-400); Red Blood Count 4.31 X10*6/uL (4.60-5.80); White Blood Count 5.1 X10*3/uL (4.8-10.8)
[2022-10-24 07:40] LABS: Anion Gap 12 (12-20); Blood Urea Nitrogen 13 mg/dL (9-16); Calcium 8.3 mg/dL (8.4-10.2); Carbon Dioxide 28 mmol/L (22-29); Chloride 108 mmol/L (96-108); Estimated Glomerular Filt Rate > 60; Glucose Random 97 mg/dL (60-115); Potassium 3.5 mmol/L (3.3-5.1); Sodium 144 mmol/L (135-145)
== END 2022-10-24 06:56 | disposition home or self-care (01) ==
LOC: HO.MMNH1L 06:55
PROVIDERS: Visit Provider Family Medicine
DX: J44.9 Chronic obstructive pulmonary disease, unspecified (principal); J45.909 Unspecified asthma, uncomplicated; G89.4 Chronic pain syndrome
CPT/HCPCS: 36415; 80048; 85025

== ENCOUNTER 2022-11-21 06:37 | Outpatient (REF) | payer OTHER, SELFPAY ==
[2022-11-21 06:27] LABS: MANUAL DIFF FLAG NO
[2022-11-21 07:04] LABS: Basophils Percent Auto 0.5 % (0-2); Eosinophils Absolute Auto 0.4 X10*3/uL (0.0-0.4); Eosinophils Percent Auto 6.7 % (0-4); Hematocrit 40.8 % (42.0-52.0); Hemoglobin 13.4 g/dl (14.0-18.0); Imm Gran Abs Auto 0.02 X10*3/uL (0.00-0.03); Imm Gran Pct Auto 0.4 % (0.0-0.4); Lymphocytes Absolute Auto 1.8 X10*3/uL (1.2-4.9); Lymphocytes Percent Auto 31.7 % (20-40); Mean Corpuscular HGB Conc 32.8 g/dl (31.0-36.0); Mean Corpuscular Hemoglobin 29.2 pg (27.0-33.0); Mean Corpuscular Volume 88.9 fL (80.0-98.0); Mean Platelet Volume 10.1 fL (9.4-12.4); Monocytes Absolute Auto 0.6 X10*3/uL (0.1-1.2); Monocytes Percent Auto 9.9 % (2-11); Neutrophils Absolute Auto 2.8 x10*3/uL (2.0-8.3); Neutrophils Percent Auto 50.8 % (45-73); Platelet Count 208 X10*3/uL (160-400); Red Blood Count 4.59 X10*6/uL (4.60-5.80); Red Cell Distribution Width 14.3 % (11.0-16.0); White Blood Count 5.6 X10*3/uL (4.8-10.8)
[2022-11-21 07:18] LABS: Anion Gap 11 (12-20); Blood Urea Nitrogen 15 mg/dL (9-16); Calcium 8.3 mg/dL (8.4-10.2); Carbon Dioxide 29 mmol/L (22-29); Chloride 107 mmol/L (96-108); Estimated Glomerular Filt Rate > 60; Glucose Random 87 mg/dL (60-115); Potassium 3.8 mmol/L (3.3-5.1); Sodium 143 mmol/L (135-145)
== END 2022-11-21 06:38 | disposition home or self-care (01) ==
LOC: HO.MMNH1L 06:37
PROVIDERS: Visit Provider Family Medicine
DX: J44.9 Chronic obstructive pulmonary disease, unspecified (principal); G89.4 Chronic pain syndrome
CPT/HCPCS: 36415; 80048; 85025

== ENCOUNTER 2022-11-25 01:54 | Inpatient (IN) | payer OTHER, SELFPAY ==
[2022-11-25] VITALS (33 sets, daily range): BP systolic 110–152; BP diastolic 68–101; PULSE 73–118; RESP 17–28; TEMP 36.7–37.3; O2SAT 91–97; BMI 25.4; BMI 25.2
--- NOTE | ~2022-11-25 | CT_ITS ---
EXAMINATION: CT ANGIOGRAM HEAD AND NECK CLINICAL INFORMATION: Stroke protocol. Slurred speech and bilateral leg weakness. COMPARISON: Concurrent CT head TECHNIQUE: Test bolus sequences followed by intravenous administration 70 mL of Omnipaque 350 intravenous contrast. Helical imaging was performed in the axial plane from the mediastinum to the skull vertex. Delayed postcontrast imaging of the head was also performed. The data was processed at the certified surgical technologist's workstation for generation of MIP sequences. Three-dimensional volume rendered reformatted images were also generated at an offline 3-D workstation. This CT examination was performed using dose optimization techniques as appropriate, variously including the following: *Automated exposure control *Adjustment of mA and/or kV according to patient size (this includes techniques or standardized protocols for targeted exams where dose is matched to indication/reason for exam; i.e. extremities or head) *Use of iterative reconstruction technique The degree of stenosis determined by NASCET criteria. DLP: 1495 mGy-cm FINDINGS: BONES, SOFT TISSUES AND LUNG APICES: No acute or suspicious osseous abnormalities cervical spine spondylosis with endplate osteophytes and loss of disc space height throughout the cervical spine. Paraspinal soft tissues unremarkable. Imaged lung apices demonstrate mild bronchial thickening. CTA NECK: Bovine arch. The major arch vessel origins are non-stenotic. Left vertebral artery is dominant. Bilateral vertebral arteries widely patent. Both common carotid arteries are normal in course and caliber. Both internal carotid arteries demonstrate mild atherosclerotic plaque without significant stenosis. CTA HEAD: There is normal opacification of the major intracranial vessels. No acute proximal large vessel occlusion, focal flow-limiting stenosis, or saccular intracranial aneurysm is identified. No abnormal parenchymal enhancement or regional oligemia is visualized. HEAD (delayed): No intracranial mass, intercerebral edema, hemorrhage, or midline shift is evident. The ventricles and sulci are stable in size and configuration. No extra-axial collections are appreciated. No pathologic intracranial enhancement. Dural sinuses are patent. The paranasal sinuses are well-aerated and clear. CT/CT angio head neck stroke IMPRESSION: No large vessel occlusion or hemodynamically significant stenosis within the intracranial or extracranial arterial vasculature.
--- NOTE | ~2022-11-25 | CT_ITS ---
EXAMINATION: CT HEAD WITHOUT CONTRAST (STROKE PROTOCOL) CLINICAL INFORMATION: Stroke protocol. Slurred speech and bilateral leg weakness. COMPARISON: MRI brain 10/08/2020 TECHNIQUE: Contiguous axial imaging was performed from the skull base to vertex without intravenous administration of contrast. This CT examination was performed using dose optimization techniques as appropriate, variously including the following: *Automated exposure control *Adjustment of mA and/or kV according to patient size (this includes techniques or standardized protocols for targeted exams where dose is matched to indication/reason for exam; i.e. extremities or head) *Use of iterative reconstruction technique DLP: 666 mGy-cm FINDINGS: There is no evidence of acute intracranial hemorrhage or territorial infarction. No abnormal mass effect or midline shift is seen. [place] to white matter differentiation is well preserved. No extra-axial fluid collections are identified. No hydrocephalus. Proportional prominence of the ventricles and sulcal spaces is consistent with moderate volume loss. Patchy periventricular and deep white matter hypoattenuation is consistent with mild small vessel ischemic changes. No acute osseous or soft tissue abnormality. The mastoid air cells and visualized portions of the paranasal sinuses are well aerated. CT/CT head for stroke IMPRESSION: No acute intracranial pathology. This critical result was discussed with Dr Pederson at 11/25/2022 2:09 AM and it was ascertained that the content and urgency of the report was understood at the time of direct communication.
--- NOTE | ~2022-11-25 | XR_ITS ---
EXAMINATION: CHEST X-RAY AND ABDOMEN X-RAY CLINICAL INFORMATION: MRI screening, rule out metal COMPARISON: None TECHNIQUE: Frontal radiographs were acquired of the chest and abdomen. FINDINGS: Chest x-ray: The lungs are clear. There are no pleural effusions. The cardiomediastinal silhouette is normal. No radiopaque foreign body is evident. Degenerative changes are noted in both shoulders. ABDOMEN: The bowel gas pattern is normal. Metallic clips are evident in the right upper quadrant from prior cholecystectomy. No radiopaque calculi are detected. Degenerative changes are present in the lumbar spine. XR/XR chest 1V IMPRESSION: 1. Clips from prior cholecystectomy; otherwise no metallic foreign bodies in the chest or abdomen.
--- NOTE | ~2022-11-25 | MR_ITS ---
MRI OF THE BRAIN WITHOUT IV CONTRAST INDICATION: Status post TPA. COMPARISON: CT head and CTA head and neck 11/25/2022. TECHNIQUE: Multiplanar multisequence MR imaging of the brain was obtained without IV contrast. FINDINGS: There is no hydrocephalus, extra-axial surface collection, or herniation. There is global cerebral volume loss and there is mild chronic microangiopathy. The major flow voids at the skull base are preserved. There is no acute infarct on diffusion-weighted imaging. There is no intracranial hemorrhage on the gradient recalled echo acquisition. The midline structures are normal. The cerebellar tonsils are normally positioned. The cerebellum and brainstem are normal. The craniocervical junction is normal. Osseous marrow signal intensity is homogenous. The visualized soft tissues are unremarkable. MR/MR head/brain wo con IMPRESSION: - No acute intracranial findings. No acute infarcts and no MRI evidence of acute intracranial hemorrhage. - There is global cerebral volume loss and there is mild chronic microangiopathy.
--- NOTE | ~2022-11-25 | XR_ITS ---
EXAMINATION: CHEST X-RAY AND ABDOMEN X-RAY CLINICAL INFORMATION: MRI screening, rule out metal COMPARISON: None TECHNIQUE: Frontal radiographs were acquired of the chest and abdomen. FINDINGS: Chest x-ray: The lungs are clear. There are no pleural effusions. The cardiomediastinal silhouette is normal. No radiopaque foreign body is evident. Degenerative changes are noted in both shoulders. ABDOMEN: The bowel gas pattern is normal. Metallic clips are evident in the right upper quadrant from prior cholecystectomy. No radiopaque calculi are detected. Degenerative changes are present in the lumbar spine. XR/XR KUB IMPRESSION: 1. Clips from prior cholecystectomy; otherwise no metallic foreign bodies in the chest or abdomen.
--- NOTE | 2022-11-25 01:59 | ECG_ITS ---
Test Reason : STROKE PROTOCOL Blood Pressure : / mmHG Vent. Rate : 088 BPM Atrial Rate : 088 BPM P-R Int : 208 ms QRS Dur : 104 ms QT Int : 340 ms P-R-T Axes : 031 002 032 degrees QTc Int : 411 ms Normal sinus rhythm Normal ECG No previous ECGs available Referred By: [place] Pederson Electronically Signed By:OCHOA FLORES
[2022-11-25 02:02] LABS: Glucose, Whole Blood 131 mg/dL (60-115)
[2022-11-25 02:02] LABS: Prothrombin Time Whole Bld POC 13.4 sec (11.1-13.5); ~PT, ~INR - Anti Coag Clinic 1.1 (0.9-1.1)
--- NOTE | 2022-11-25 02:19 | ED_ITS ---
HPI - Neuro Symptoms/Deficit General Chief Complaint: Stroke Stated Complaint: ?Stroke Alert Time Seen by Provider: 11/25/22 01:57 Source: EMS Mode of arrival: EMS Limitations: other (Slurred speech) History of Present Illness HPI Narrative: Patient comes to the emergency room via EMS from [facility]. EMS reports that the staff at the facility said that the patient was seen normal at 01:00. Patient usually goes out of his room, chads with the nurses, goes back to his room. At 01:00, patient was alert oriented, normal speech. Around 01:30, he came out of his room saying that something was wrong but they noticed that the patient's speech was significantly impaired, very slurred. Symptoms patient had difficult time following directions which is not like him. Therefore, 911 was called. Related Data Allergies Allergy/AdvReac Type Severity Reaction Status Date / Time Unable to Assess Allergy Verified 11/25/22 01:57 Review of Systems Review of Systems: Yes Unobtainable due to mental condition PMFSH Past Medical History Medical History Asthma exacerbation COPD (chronic obstructive pulmonary disease) Dementia Hyperlipidemia Social History Social History Smoked in Last 30 Days: No Advance Directives: No Advance Directives Information Provided: No Physical Exam Vital Signs: Vital Signs: Last Vital Signs Temp 98.8 F 11/25/22 02:39 Pulse 91 11/25/22 05:02 Resp 24 H 11/25/22 05:02 BP 129/79 11/25/22 05:02 Pulse Ox 97 11/25/22 05:02 O2 Del Method 11/25/22 05:02 BMI result Body Mass Index 25.4 Const: Other: Appearance: Alert. No acute distress. Eyes: Pupils equal, round and reactive to light. ENT: Pharynx normal. Neck: Normal inspection. Neck supple. No lymph nodes noted. No crepitus CVS: Normal heart rate and rhythm. Pulses normal. Normal S1 and S2 Respiratory: No respiratory distress. Breath sounds normal. No Wheezing. No rales Abdomen: Soft and nontender. No rigidity. No distention. Skin: Skin warm and dry. Normal skin color. Normal skin turgor. Extremities: No lower extremity edema. No Lacerations. No Rash Neuro: No upper or lower extremity weakness, 5/5 in all 4 extremities. Patient has no facial asymmetry. Patient has a little trouble following directions. Patient's speech sounds slurred. Patient does not have any dentures at this time, unclear what his baseline is without dentures. Psych: calm, cooperative, normal affect Medications Administered Discontinued Medications Generic Name Dose Route Start Last Admin Trade Name Lillian PRN Reason Stop Dose Admin Alteplase, Recombinant 70.38 mg 11/25/22 02:28 11/25/22 02:50 Alteplase 100 Mg Vial 0.9 mg/kg (70.38 mg) 11/25/22 02:29 70.38 mg IV Administration ONCE ONE Iohexol 70 ml 11/25/22 02:26 11/25/22 02:27 Iohexol 350 Mg/Ml 100 Ml Infus..Btl IV 11/25/22 02:27 70 ml ONCE ONE Administration Medical Decision Making Medical Decision Making MDM Narrative: -I discussed the patient with Dr. Nair. Patient's NIH score is 1. Patient seems to be improving in his speech but still significantly slurred. Patient has no lower or upper extremity weakness. Patient has no dentures so it is difficult to assess if the patient has slurred speech from not having dentures or from an actual CVA. According to EMS, the patient's nurses at the facility are able to understand his speech even without dentures. They noted a clear change in speech. Patient is not on blood thinners, blood pressure normal, we will go ahead and give tPA per Dr. Nair. -I discussed the CT and CTA with our radiologist from [facility], both are negative -tPA was given. Patient's speech does seem somewhat improved. -no adverse effects from tPA -I discussed the patient with Dr. Soto, patient being admitted Differential Diagnosis Differential Diagnoses: The differential diagnosis associated with the presentation includes (Embolic CVA, hemorrhagic CVA) Admission/Observation Consideration of admission/observation: Escalation of care including admission/observation considered Consult Healthcare Provider Management of the patient was discussed with: Lapel Padder Lab Data [facility] Lab Attestation statement: I reviewed the patient's lab results. 11/25/22 02:33 11/25/22 02:33 Labs: Lab Results 11/25/22 11/25/22 11/25/22 Range/Units 01:58 01:59 02:33 WBC 8.4 (4.8-10.8) X10*3/uL RBC 4.71 (4.60-5.80) X10*6/uL Hgb 13.9 L (14.0-18.0) g/dl Hct 41.2 L (42.0-52.0) % MCV 87.5 (80.0-98.0) fL MCH 29.5 (27.0-33.0) pg MCHC 33.7 (31.0-36.0) g/dl RDW 14.2 (11.0-16.0) % Plt Count 171 (160-400) X10*3/uL MPV 10.0 (9.4-12.4) fL Immature Gran % (Auto) 0.4 (0.0-0.4) % Neut % (Auto) 74.4 H (45-73) % Lymph % (Auto) 15.3 L (20-40) % [place] % (Auto) 8.3 (2-11) % Eos % (Auto) 1.4 (0-4) % Baso % (Auto) 0.2 (0-2) % Lymph # (Auto) 1.3 (1.2-4.9) X10*3/uL [place] # (Auto) 0.7 (0.1-1.2) X10*3/uL Eos # (Auto) 0.1 (0.0-0.4) X10*3/uL Baso # (Auto) 0.0 (0.0-0.2) X10*3/uL Abs Immat Gran (auto) 0.03 (0.00-0.03) X10*3/uL Absolute Neuts (auto) 6.3 (2.0-8.3) x10*3/uL Absolute Nucleated RBC 0.000 (0.0-0.012) X10*3/uL Nucleated RBC % (auto) 0.0 (0.0-0.2) /100WBC Whole Blood PT 13.4 (11.1-13.5) sec Whole Blood INR 1.1 (0.9-1.1) Sodium (135-145) mmol/L Potassium (3.3-5.1) mmol/L Chloride (96-108) mmol/L Carbon Dioxide (22-29) mmol/L Anion Gap (12-20) BUN (9-16) mg/dL Creatinine (0.5-1.4) mg/dL Estim Creat Clear Calc Estimated GFR POC Glucose 131 H (60-115) mg/dL Random Glucose (60-115) mg/dL Lactic Acid (0.5-2.0) mmol/L Calcium (8.4-10.2) mg/dL Magnesium (1.6-2.6) mg/dL Total Bilirubin (0.0-1.0) mg/dL Direct Bilirubin (0.0-0.5) mg/dL AST (5-37) U/L ALT (0-40) U/L Alkaline Phosphatase (39-117) U/L Troponin I High Sens (<3.5-35.0) ng/L Total Protein (6.5-8.0) g/dL Albumin (3.5-5.0) g/dL Urine Color Urine Appearance Urine pH (5.0-9.0) Ur Specific [place] (1.005-1.025) Urine Protein (Neg-Trace) mg/dL Urine Glucose (UA) (Negative) mg/dL Urine Ketones (Negative) mg/dL Urine Blood (Negative) Urine Nitrite (Negative) Ur Leukocyte Esterase (Negative) Urine RBC (0-2) /HPF Urine WBC (0-5) /HPF Ur Squamous Epith Cells (0-2) /HPF Urine Bacteria (None Seen) Hyaline Casts (0-2) /LPF COVID-19 ([place]) (Negative) COVID-19 Clin Com 11/25/22 11/25/22 11/25/22 Range/Units 02:33 02:33 02:33 WBC (4.8-10.8) X10*3/uL RBC (4.60-5.80) X10*6/uL Hgb (14.0-18.0) g/dl Hct (42.0-52.0) % MCV (80.0-98.0) fL MCH (27.0-33.0) pg MCHC (31.0-36.0) g/dl RDW (11.0-16.0) % Plt Count (160-400) X10*3/uL MPV (9.4-12.4) fL Immature Gran % (Auto) (0.0-0.4) % Neut % (Auto) (45-73) % Lymph % (Auto) (20-40) % [place] % (Auto) (2-11) % Eos % (Auto) (0-4) % Baso % (Auto) (0-2) % Lymph # (Auto) (1.2-4.9) X10*3/uL [place] # (Auto) (0.1-1.2) X10*3/uL Eos # (Auto) (0.0-0.4) X10*3/uL Baso # (Auto) (0.0-0.2) X10*3/uL Abs Immat Gran (auto) (0.00-0.03) X10*3/uL Absolute Neuts (auto) (2.0-8.3) x10*3/uL Absolute Nucleated RBC (0.0-0.012) X10*3/uL Nucleated RBC % (auto) (0.0-0.2) /100WBC Whole Blood PT (11.1-13.5) sec Whole Blood INR (0.9-1.1) Sodium 139 (135-145) mmol/L Potassium 3.6 (3.3-5.1) mmol/L Chloride 106 (96-108) mmol/L Carbon Dioxide 24 (22-29) mmol/L Anion Gap 13 (12-20) BUN 14 (9-16) mg/dL Creatinine 0.77 (0.5-1.4) mg/dL Estim Creat Clear Calc 86.7 Estimated GFR > 60 POC Glucose (60-115) mg/dL Random Glucose 121 H (60-115) mg/dL Lactic Acid 1.3 (0.5-2.0) mmol/L Calcium 8.4 (8.4-10.2) mg/dL Magnesium 1.7 (1.6-2.6) mg/dL Total Bilirubin 1.1 H (0.0-1.0) mg/dL Direct Bilirubin 0.4 (0.0-0.5) mg/dL AST 9 (5-37) U/L ALT 9 (0-40) U/L Alkaline Phosphatase 66 (39-117) U/L Troponin I High Sens (<3.5-35.0) ng/L Total Protein 5.3 L (6.5-8.0) g/dL Albumin 3.4 L (3.5-5.0) g/dL Urine Color Urine Appearance Urine pH (5.0-9.0) Ur Specific [place] (1.005-1.025) Urine Protein (Neg-Trace) mg/dL Urine Glucose (UA) (Negative) mg/dL Urine Ketones (Negative) mg/dL Urine Blood (Negative) Urine Nitrite (Negative) Ur Leukocyte Esterase (Negative) Urine RBC (0-2) /HPF Urine WBC (0-5) /HPF Ur Squamous Epith Cells (0-2) /HPF Urine Bacteria (None Seen) Hyaline Casts (0-2) /LPF COVID-19 ([place]) Negative (Negative) COVID-19 Clin Com See Note 11/25/22 11/25/22 Range/Units 02:33 04:29 WBC (4.8-10.8) X10*3/uL RBC (4.60-5.80) X10*6/uL Hgb (14.0-18.0) g/dl Hct (42.0-52.0) % MCV (80.0-98.0) fL MCH (27.0-33.0) pg MCHC (31.0-36.0) g/dl RDW (11.0-16.0) % Plt Count (160-400) X10*3/uL MPV (9.4-12.4) fL Immature Gran % (Auto) (0.0-0.4) % Neut % (Auto) (45-73) % Lymph % (Auto) (20-40) % [place] % (Auto) (2-11) % Eos % (Auto) (0-4) % Baso % (Auto) (0-2) % Lymph # (Auto) (1.2-4.9) X10*3/uL [place] # (Auto) (0.1-1.2) X10*3/uL Eos # (Auto) (0.0-0.4) X10*3/uL Baso # (Auto) (0.0-0.2) X10*3/uL Abs Immat Gran (auto) (0.00-0.03) X10*3/uL Absolute Neuts (auto) (2.0-8.3) x10*3/uL Absolute Nucleated RBC (0.0-0.012) X10*3/uL Nucleated RBC % (auto) (0.0-0.2) /100WBC Whole Blood PT (11.1-13.5) sec Whole Blood INR (0.9-1.1) Sodium (135-145) mmol/L Potassium (3.3-5.1) mmol/L Chloride (96-108) mmol/L Carbon Dioxide (22-29) mmol/L Anion Gap (12-20) BUN (9-16) mg/dL Creatinine (0.5-1.4) mg/dL Estim Creat Clear Calc Estimated GFR POC Glucose (60-115) mg/dL Random Glucose (60-115) mg/dL Lactic Acid (0.5-2.0) mmol/L Calcium (8.4-10.2) mg/dL Magnesium (1.6-2.6) mg/dL Total Bilirubin (0.0-1.0) mg/dL Direct Bilirubin (0.0-0.5) mg/dL AST (5-37) U/L ALT (0-40) U/L Alkaline Phosphatase (39-117) U/L Troponin I High Sens 3.4 (<3.5-35.0) ng/L Total Protein (6.5-8.0) g/dL Albumin (3.5-5.0) g/dL Urine Color Yellow Urine Appearance Clear Urine pH 7.0 (5.0-9.0) Ur Specific [place] >= 1.030 H (1.005-1.025) Urine Protein 30 (1+) H (Neg-Trace) mg/dL Urine Glucose (UA) Negative (Negative) mg/dL Urine Ketones Trace (Negative) mg/dL Urine Blood Large (3+) H (Negative) Urine Nitrite Negative (Negative) Ur Leukocyte Esterase Moderate (2+) H (Negative) Urine RBC >20 H (0-2) /HPF Urine WBC >50 H (0-5) /HPF Ur Squamous Epith Cells 0-2 (0-2) /HPF Urine Bacteria None Seen (None Seen) Hyaline Casts 0-2 (0-2) /LPF COVID-19 ([place]) (Negative) COVID-19 Clin Com Independent Interpretation I performed an independent interpretation of an: CT Scan (My interpretation of head CT scan: No intracranial bleed) Radiology Impression Discussion of test interpretation with radiology: I have reviewed the radiologist's reading. Radiologist Impression: FINDINGS: BONES, SOFT TISSUES AND LUNG APICES: No acute or suspicious osseous abnormalities cervical spine spondylosis with endplate osteophytes and loss of disc space height throughout the cervical spine. Paraspinal soft tissues unremarkable. Imaged lung apices demonstrate mild bronchial thickening.? CTA NECK: Bovine arch. The major arch vessel origins are non-stenotic. Left vertebral artery is dominant. Bilateral vertebral arteries widely patent. Both common carotid arteries are normal in course and caliber. Both internal carotid arteries demonstrate mild atherosclerotic plaque without significant stenosis.? CTA HEAD: There is normal opacification of the major intracranial vessels. No acute proximal large vessel occlusion, focal flow-limiting stenosis, or saccular intracranial aneurysm is identified. No abnormal parenchymal enhancement or regional oligemia is visualized.? ? HEAD (delayed): No intracranial mass, intercerebral edema, hemorrhage, or midline shift is evident. The ventricles and sulci are stable in size and configuration. No extra-axial collections are appreciated. No pathologic intracranial enhancement. Dural sinuses are patent.? The paranasal sinuses are well-aerated and clear. CT/CT angio head? neck stroke IMPRESSION: No large vessel occlusion or hemodynamically significant stenosis within the intracranial or extracranial arterial vasculature. ? NIH Stroke Scale Level of Consciousness: Alert Level of Consciousness Questions: Answers both questions correctly Level of Consciousness Commands: Performs both tasks correctly Best Gaze: Normal Visual: No visual loss Facial Palsy: Normal Motor Arm (Right): No drift Motor Arm (Left): No drift Motor Leg (Right): No drift Motor Leg (Left): No drift Limb Ataxia: Absent Sensory: Normal Best Language: No aphasia Dysarthia: Mild to moderate dysarthria Extinction and Inattention: No abnormality Score: 1 Discharge Plan Discharge Clinical Impression: Cerebrovascular accident Patient Disposition: Admitted As Inpatient
[2022-11-25] MEDS: iohexoL 350 MG/ML 100 ML INFUS..BTL 70 ML IV (02:27)
[2022-11-25 02:41] LABS: Basophils Percent Auto 0.2 % (0-2); Eosinophils Absolute Auto 0.1 X10*3/uL (0.0-0.4); Eosinophils Percent Auto 1.4 % (0-4); Hematocrit 41.2 % (42.0-52.0); Hemoglobin 13.9 g/dl (14.0-18.0); Imm Gran Abs Auto 0.03 X10*3/uL (0.00-0.03); Imm Gran Pct Auto 0.4 % (0.0-0.4); Lymphocytes Absolute Auto 1.3 X10*3/uL (1.2-4.9); Lymphocytes Percent Auto 15.3 % (20-40); MANUAL DIFF FLAG NO; Mean Corpuscular HGB Conc 33.7 g/dl (31.0-36.0); Mean Corpuscular Hemoglobin 29.5 pg (27.0-33.0); Mean Corpuscular Volume 87.5 fL (80.0-98.0); Monocytes Absolute Auto 0.7 X10*3/uL (0.1-1.2); Monocytes Percent Auto 8.3 % (2-11); Neutrophils Absolute Auto 6.3 x10*3/uL (2.0-8.3); Neutrophils Percent Auto 74.4 % (45-73); Platelet Count 171 X10*3/uL (160-400); Red Blood Count 4.71 X10*6/uL (4.60-5.80); Red Cell Distribution Width 14.2 % (11.0-16.0); White Blood Count 8.4 X10*3/uL (4.8-10.8)
[2022-11-25 02:52] LABS: Lactic Acid 1.3 mmol/L (0.5-2.0)
[2022-11-25 02:55] LABS: COVID-19 Test Negative (Negative); IDNOW Serial# 16C4AD1C
[2022-11-25 02:58] LABS: Alanine Aminotransferase 9 U/L (0-40); Albumin Level 3.4 g/dL (3.5-5.0); Alkaline Phosphatase 66 U/L (39-117); Anion Gap 13 (12-20); Aspartate Amino Transferase 9 U/L (5-37); Bilirubin Direct 0.4 mg/dL (0.0-0.5); Bilirubin Total 1.1 mg/dL (0.0-1.0); Blood Urea Nitrogen 14 mg/dL (9-16); Calcium 8.4 mg/dL (8.4-10.2); Carbon Dioxide 24 mmol/L (22-29); Chloride 106 mmol/L (96-108); Creatinine Clr Calc Pharmacy 86.7; Estimated Glomerular Filt Rate > 60; Glucose Random 121 mg/dL (60-115); Magnesium 1.7 mg/dL (1.6-2.6); Potassium 3.6 mmol/L (3.3-5.1); Sodium 139 mmol/L (135-145); Total Protein 5.3 g/dL (6.5-8.0)
--- NOTE | 2022-11-25 02:59 | PC.NURSE ---
Addendum entered by Dunia Edmondson 11/26/22 06:56: Late entry: Typo made. TPA bolus given at 2:47. Original Note: TPA bolus given at 02:57.
[2022-11-25 03:02] LABS: Troponin-I High Sensitivity 3.4 ng/L (<3.5-35.0)
--- NOTE | 2022-11-25 03:02 | PC.NURSE ---
Pt. brought in by EMS with a stroke alert. Pt. immediately assessed by and sent to CT scan. Pt. had one 18 IV placed by EMS. This RN placed a 2nd 18 IV in the right AC. MD ordered TPA and this was administered per the NOV. Pt. has shown some improvement in speech since arrival and is oriented to self. Pt aware he came by ambulance but unable to tell me where he is. Pt. is resting comfortably in bed with TPA running. Pt. able to squeeze hands and move lower extremities with equal strength in all extremities. Will continue to monitor.
--- NOTE | 2022-11-25 03:21 | PC.NURSE ---
Pt. is alert, however cannot answer what month is is or how old they are. Pt. 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 Pt. able to follow finger with eyes and appears to have visual varma intact. No facial palsy noted. No arm drift or leg drift noted. Pt. sensory remains intact. Pt. unable to see cards to properly assess for dysarthria. Pt. exhibiting some confusion in following directions to fully assess NIH stroke scale.
--- NOTE | 2022-11-25 04:03 | PC.NURSE ---
TPA infusion completed. 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 No drift noted in upper or lower extremities. Pt. able to follow finger in all directions. Pt. still somewhat confused and doesn't follow all directions appropriately. Pt. is alert and oriented to self and knows he is at [facility]. Pt. able to lift lower extremities and hold them up without drift. Will continue to monitor.
[2022-11-25 04:36] LABS: Appearance Urine Clear; Color Urine Yellow; Glucose Urine UA Negative (Negative); Leukocyte Esterase Urine Moderate (2+) (Negative); Nitrite Urine Negative (Negative); Specific Gravity - Urine >= 1.030 (1.005-1.025); UMIC TRIGGER UACC YES; Urine Blood Large (3+) (Negative); Urine Ketones Trace mg/dL (Negative); Urine Protein 30 (1+) mg/dL (Neg-Trace)
--- NOTE | 2022-11-25 04:39 | PC.NURSE ---
Pt. requesting to urinate. Provided pt. with a urinal and collected urine and sent to lab. Pt. now resting quietly in room. No distress noted.
[2022-11-25 04:41] LABS: Bacteria Urine None Seen (None Seen); Hyaline Casts Urine 0-2 /LPF (0-2); RBC Urine >20 /HPF (0-2); Squamous Epithelial Cell Urine 0-2 /HPF (0-2); UACC Culture Trigger YES; WBC Urine >50 /HPF (0-5)
--- NOTE | 2022-11-25 07:00 | CA_ITS ---
Transthoracic Echocardiogram Amended Patient (Last, First, Middle): Jovon Soria, Gender: Male Date of : 1950 Age: 72 Procedure Date: 11/25/2022 Procedure Type: Transthoracic Echocardiogram Location: ICU Height: 175.26 cm Weight: 78.02 kg BSA: 1.94 m2 Heart Rate: bpm BP: 113 / 73 mmHg Assembler Filters: Referring MD: Erick Soto MD Symptoms: stroke please perform bubble Study Quality: Adequate ECG Rhythm: Sinus Conclusions: - The left ventricular systolic function is normal. The calculated ejection fraction is 60% by biplane method. - No obvious valvular pathology seen on this study. - There is mild dilatation of the sinuses of Valsalva measuring 4.20 cm. - There is no evidence of interatrial shunt by agitated saline. Findings Left Ventricle Normal left ventricular cavity size. There is mildly increased left ventricular wall thickness. The left ventricular systolic function is normal. The calculated ejection fraction is 60% by biplane method. There is no evidence of regional wall motion abnormalities. Diastolic function is normal for age. Right Ventricle Normal right ventricular cavity size and systolic function. Atria Both atria are normal in size. There is no evidence of interatrial shunt by agitated saline. With rest and valsalva. Aortic Valve The aortic valve was not well visualized. There is no aortic valve stenosis. There is no aortic valve regurgitation. Mitral Valve The mitral valve appears normal. There is no mitral valve regurgitation. There is no mitral valve stenosis. Pulmonic Valve The pulmonic valve is likely normal. Tricuspid Valve There is trace tricuspid valve regurgitation. There is no evidence of pulmonary hypertension. Great Vessels The asc aorta is normal in size. There is mild dilatation of the sinuses of Valsalva measuring 4.20 cm. Venous The inferior vena cava is normal in size and collapses greater than 50% with inspiration. Pericardium/Pleural There is no evidence of pericardial effusion. Prior Study Comparison No prior study available for comparison. Recommendations, Care & Conclusions No obvious valvular pathology seen on this study. Measurements 2D Linear Measurements IVSd: 1.03 0.6-0.9/0.6-1.0 cm LVIDd: 3.89 3.9-5.3/4.2-5.9 cm LVIDd Index: 2.01 2.4-3.2/2.2-3.1 cm/m2 LVIDs: 2.51 2.0-3.6 cm LVPWd: 1.10 0.7-1.1 cm Ao Root: 4.20 2.1-3.5 cm LA Diam: 2.70 2.7-3.8/3.0-4.0 cm LAIDs Index: 1.39 1.5-2.3 cm/m2 LV Mass: 165.68 67-162/88-224 g LV Mass Index: 85.40 43-95/49-115 g/m2 LVOT Diam: 2.40 3.0+(-)1.3 cm 2D Volumes LA Vol: 18.00 2D Systolic Function EF 4C: 61.10 >55% EF 2C: 58.00 >55% EF BiP: 59.70 >55% Mitral Valve MV VTI: 0.26 MV Pk Ronnie: 0.85 MV Mn Ronnie: 0.58 MV Pk Grad: 3.00 MV Mn Grad: 2.00 MV Pk E: 0.61 MV PK A: 0.77 MV Decel Time: 158.00 E/A: 0.80 E'Lateral: 11.20 E'Medial: 6.96 E/E' Med: 8.70 E/E' Lat: 5.40 PHT: 46.00 MVA PHT: 4.78 MVA Continuity: 3.97 Decel Gregory: 3.82 Aortic Valve AoV Pk Ronnie: 1.75 AoV Mn Ronnie: 1.12 AoV VTI: 0.31 AoV Pk Grad: 12.00 Aov Mn Grad: 6.00 JESSE Cont.VTI: 3.22 LVOT LVOT Pk Ronnie: 1.20 LVOT Mn Ronnie: 0.76 LVOT VTI: 0.22 LVOT Pk Grad: 6.00 LVOT Mn Grad: 3.00 LVOT Diam: 2.40 LVOT Area: 4.52 Diastolic Function MV Pk E: 0.61 MV Pk A: 0.77 E/A: 0.80 E'Medial: 6.96 E/E' Med: 8.70 E' Laterial: 11.20 E/E' Lat: 5.40 Right Ventricle TAPSE (mm): 23.00 TVS' Ronnie: 15.00 Tricuspid Valve TR Pk Ronnie: 2.47 TR Pk Grad: 24.00 RA Press: 3.00 RVSP: 27.00 Great Vessels Aorta Ao Root-2D: 4.20 2.0-3.7 cm Sinus of Valsalva: 4.20 2.0-3.5 cm Ao Asc: 3.80 2.1-3.4 cm Ao Arch: 3.50 Pulmonary Valve PV Pk Ronnie: 1.11 Peak PV Grad: 5.00 Updated in Other Vendor System with Status of Final Gopal Thomson MD electronically signed on 11/25/2022 1:54:24 PM with status of Final
--- NOTE | 2022-11-25 08:53 | PHA.MEDREC ---
Pharmacy Consult ? Medication Reconciliation Pharmacy has completed the medication reconciliation. List from [facility]
--- NOTE | 2022-11-25 10:58 | MHC.STROKE ---
Addendum entered by Jaz Gomes, RN 11/26/22 09:48: I CLARIFIED TPA-ALTEPLASE BOLUS TIME: IT WAS GIVEN BY HITESH SIMON RN ON 11/25/22 AT 02:47, IN ERROR SHE HAD DOCUMENTED BOLUS AT 02:57. THIS IS NOW AMENDED AND VERIFIED CORRECT BOLUS TIMLE 02:47. DOOR-TO-TPA = 53 MINUTES. Original Note: 0149 EMS PRE-NOTIFIED STROKE ALERT FOR SLURRED SPEECH, LKW 0100, DISCOVERED 0130 FROM SNF, ARRIVE AT 0154, SEEN BY PROVIDER NIHSS = 1 FOR DYSARTHRIA, CT DONE AT 0159, READ 0209 NO BLEED. CTA H/N DONE AT 0204, READ 0243. NO LVO. TPA ORDERED AT 0228, GIVEN AT 0250 PER NOV. KEPT NPO. THIS MORNING AT 1000 HE PASSED NURSING SWALLOW SCREEN ALTHOUGH THERE IS A SLIGHT DELAY, HE DOES NOT HAVE ANY TEETH THEREFORE SPEECH TX IS ORDERED FOR AN EVAL AND TO ESTABLISH A SAFE DIET. REVIEWED CASE WITH DR. DURON. MRI PENDING. I WILL CONTINUE TO FOLLOW.
[2022-11-25 11:35] LABS: Glucose, Whole Blood 103 mg/dL (60-115)
--- NOTE | 2022-11-25 12:01 | PM.NEUROCN ---
History of Present Illness Data of Consult Service Date: 11/25/22 Primary Care Provider: Unknown Physician HPI Reason for consult: Stroke with acute dysarthria This is a 72 yr man from Nursing facility who was seen normal at 01:00 when he was out of his room chatting with the nurses. Around 01:30, he came out of his room saying that something was wrong and they noticed that the patient's speech was very slurred and he had a difficult time following directions which is not like him.? Therefore, [address], CTA were negative so tPA was administered. past h/o asthma, hyperlipidemia, depression and mild dementia. He has no recall of why he is here Review of Systems Review of Systems: Yes Unobtainable due to mental condition PMFSH Past Medical History Medical History Asthma exacerbation COPD (chronic obstructive pulmonary disease) Dementia Hyperlipidemia Social History Social History Patient Tobacco Use Status: Tobacco use Unknown Smoked in Last 30 Days: No Advance Directives: No Advance Directives Information Provided: No Nutrition Risks: Dental problems Meds Allergies Allergy/AdvReac Type Severity Reaction Status Date / Time Unable to Assess Allergy Verified 11/25/22 01:57 Active Medications: Current Medications Sodium Chloride (0.9 % Sodium Chloride Flush 3 Ml Syringe) 3 ml IVFLUSH [facility] Home Medications Medication Instructions Recorded Confirmed Last Taken Type acetaminophen 325 mg tablet 650 mg PO Q6H PRN Pain 11/25/22 11/25/22 Unknown History albuterol sulfate 90 mcg/actuation 2 puff inhalation Q4H PRN Wheezing 11/25/22 11/25/22 Unknown History aerosol inhaler aspirin 81 mg tablet,delayed 81 mg PO DAILY 11/25/22 11/25/22 Unknown History release atorvastatin 20 mg tablet 1 tab PO DAILY 11/25/22 11/25/22 Unknown History bisacodyl 10 mg rectal suppository 10 mg MD DAILY PRN Constipation 11/25/22 11/25/22 Unknown History (Dulcolax (bisacodyl)) cholecalciferol (vitamin D3) 50 50 mcg PO DAILY 11/25/22 11/25/22 Unknown History mcg (2,000 unit) tablet diclofenac sodium 1 % topical gel 2 g topical QID 11/25/22 11/25/22 Unknown History divalproex 250 mg tablet,delayed 250 mg PO DAILY 11/25/22 11/25/22 Unknown History release divalproex 500 mg tablet,delayed 500 mg PO DAILY 11/25/22 11/25/22 Unknown History release docusate sodium 100 mg capsule 100 mg PO BID 11/25/22 11/25/22 Unknown History ferrous sulfate 325 mg (65 mg 325 mg PO DAILY 11/25/22 11/25/22 Unknown History iron) tablet finasteride 5 mg tablet 5 mg PO DAILY 11/25/22 11/25/22 Unknown History fluoxetine 20 mg capsule 20 mg PO DAILY 11/25/22 11/25/22 Unknown History fluticasone furoate 100 1 puff inhalation DAILY 11/25/22 11/25/22 Unknown History mcg/actuation blister powder for inhalation (Arnuity Ellipta) fluticasone propionate 50 1 spray intranasal DAILY 11/25/22 11/25/22 Unknown History mcg/actuation nasal spray,suspension furosemide 20 mg tablet 20 mg PO DAILY 11/25/22 11/25/22 Unknown History ibuprofen 200 mg tablet 200 mg PO Q6H PRN Pain 11/25/22 11/25/22 Unknown History loratadine 10 mg tablet 10 mg PO DAILY 11/25/22 11/25/22 Unknown History montelukast 10 mg tablet 10 mg PO QPM 11/25/22 11/25/22 Unknown History omeprazole 20 mg capsule,delayed 20 mg PO DAILY 11/25/22 11/25/22 Unknown History release pregabalin 150 mg capsule 150 mg PO BID 11/25/22 11/25/22 Unknown History tamsulosin 0.4 mg capsule 0.4 mg PO DAILY 11/25/22 11/25/22 Unknown History Physical Exam Vital Signs: Vital Signs: Last Vital Signs Temp 98.5 F 11/25/22 10:25 Pulse 81 11/25/22 11:00 Resp 25 H 11/25/22 10:25 BP 125/74 11/25/22 11:00 Pulse Ox 94 11/25/22 11:00 O2 Del Method 11/25/22 10:25 BMI result Body Mass Index 25.4 Const: Other: Appearance: Alert. No acute distress. Eyes: Pupils equal, round and reactive to light. ENT: Pharynx normal. Neck: Normal inspection. Neck supple. No lymph nodes noted. No crepitus CVS: Normal heart rate and rhythm. Pulses normal. Normal S1 and S2 Respiratory: No respiratory distress. Breath sounds normal. No Wheezing. No rales Abdomen: Soft and nontender. No rigidity. No distention. Skin: Skin warm and dry. Normal skin color. Normal skin turgor. Extremities: No lower extremity edema. No Lacerations. No Rash Neuro: No upper or lower extremity weakness, 5/5 in all 4 extremities. Patient has no facial asymmetry. Patient has a little trouble following directions. Patient's speech sounds slurred. Patient does not have any dentures at this time, unclear what his baseline is without dentures. Psych: calm, cooperative, normal affect Neuro: Other: He is edentulous and has some dysarthria which may be related to that. No facial droop. He has mild dementia. He did not know the year and initially was confused as to where he is. He has some difficulty following commands. Otherwise the exam is nonfocal with no drift or weakness and no field cuts Results Labs 11/25/22 02:33 11/25/22 02:33 Labs: Short CBC 11/25/22 Range/Units 02:33 WBC 8.4 (4.8-10.8) X10*3/uL Hgb 13.9 L (14.0-18.0) g/dl Hct 41.2 L (42.0-52.0) % Plt Count 171 (160-400) X10*3/uL BMP 11/25/22 02:33 Sodium 139 Potassium 3.6 Chloride 106 Carbon Dioxide 24 BUN 14 Creatinine 0.77 Calcium 8.4 Liver Function 11/25/22 Range/Units 02:33 Total Bilirubin 1.1 H (0.0-1.0) mg/dL Direct Bilirubin 0.4 (0.0-0.5) mg/dL AST 9 (5-37) U/L ALT 9 (0-40) U/L Alkaline Phosphatase 66 (39-117) U/L Albumin 3.4 L (3.5-5.0) g/dL Urine 11/25/22 Range/Units 04:29 Urine Color Yellow Urine Appearance Clear Urine pH 7.0 (5.0-9.0) Ur Specific [place] >= 1.030 H (1.005-1.025) Urine Protein 30 (1+) H (Neg-Trace) mg/dL Urine Glucose (UA) Negative (Negative) mg/dL Assessment and Plan (1) Cerebrovascular accident: Status: Acute Probable small left hemisphere infarct aborted by TPA. Normal CT and CTA Recommendation start aspirin 81 mg a day. MRI of the brain to see if there was an acute infarct because his history is unreliable and he appears to have some baseline dysarthria Time Spent With Patient Time: Total time managing care of this patient today ____ minutes. Procedures Date of Service Date of Service: 11/25/22
--- NOTE | 2022-11-25 12:30 | MHC.SL.SWA ---
Speech Pathologist Impression: Oral phase dysphagia d/t edentulous state Risk of Aspiration Due to: Neurological Condition Dysphasia Diet Status: Downgrade from baseline as pt does not have dentures Liquid Consistency and Strategies for Safe Swallow: Liquid Intake Recommendation: Thin Liquid Intake Strategies: Small Sips Straws Solid Food Consistency: Dietary Recommendations: Pureed (NDD1) Additional Modifications to Solid Foods: Pt from [facility] nursing staff, pt was eating a mechanically soft diet with thin liquids at baseline. Pt is admitted for stroke, was administered tPA and is now in ICU. Pt passed nursing swallow screening. Pt seen by FULL STACK PYTHON DEVELOPER for bedside dysphagia evaluation this afternoon. Pt was able to feed himself. Pt is edentulous, does not have dentures with him. When given softened cracker, pt sucked on cracker, did not chew, subsequently spit it out. Mild oral residue with pureed solid subsequently cleared. Pt tolerated sips of thin liquid with no overt s/s of aspiration. Recommend START on PUREED (NDD1) solids and THIN liquids, pills WHOLE or CRUSHED in PUREE per pt's tolerance. Recommend supervision to monitor tolerance and provide cues for aspiration precautions as needed. FULL STACK PYTHON DEVELOPER to re-evaluate when pt has his dentures for possible advancement back to baseline. Pt exhibited difficulty answering questions and following directions. Recommend speech therapy for receptive-expressive aphasia during hospitalization and at next level of care. Oral Medication Intake: Crushed or Whole with Puree Please contact the pharmacy regarding appropriate crushable or liquid drug formulations that are available whenever modified delivery is recommended. Compensatory Strategies and Precautions to be Taken for Safe Swallow: Sitting Upright (90 deg) No Straw Small Bites and Sips Rate of Ingestion Change Supervision While Eating and Drinking for Safe Swallow: Total Supervision (1:1) Swallowing Recommended Treatments: Compens. Strategy Educat. Recommendation for Speech: Inpatient Speech Therapy Speech Therapy through Rehab Facility Windows Application Administrator Clinican/Clinical Fellow: No Supervisory Statement: I have reviewed and agree with the student/clinical fellow's documentation: N/A Speech Language Pathologist: Elizabeth Prado M.A., [facility] STACK PYTHON DEVELOPER
--- NOTE | 2022-11-25 13:12 | MHC.CM.PN ---
Pt admitted from [facility] after being given TpA in response to CVA symptoms. Pt w/dx of dementia but able to make needs known. Call placed to next of contact: phone number not in service. Call placed to [facility] : requested copy of HCP and invocation form as well as updated contact number for Alona Gomes (spouse/next of contact). Awaiting fax. Per staff a SNF, pt will return when medically stable: he is alert, verbal w/intermittent confusion: continent x 2, ambulatory w/walker or uses w/c. Can dress/groom self w/cueing and eats independently. Re-referred to [facility]: waiting for fax to place in chart. IMM to be mailed.
[2022-11-25] MEDS: 0.9 % Sodium Chloride Flush 3 ML SYRINGE IVFLUSH ×2 (15:50→23:50)
[2022-11-25 16:13] LABS: Glucose, Whole Blood 93 mg/dL (60-115)
--- NOTE | 2022-11-25 16:19 | PM.CCHP ---
History of Present Illness Date of Service: 11/25/22 Attending physician on admission: Erick Soot Chief Complaint: Garbled speech 72-year-old male smoker with COPD some behavioral issues and and dementia on a combination of pregabalin as well as Depakote and for COPD he is on albuterol and Singulair and has been on aspirin prophylaxis and came out less than 1/2 hour after he was last seen at the retirement and said that something was wrong and they noticed that he had increasingly garbled speech so he came to the emergency room and even though his NIH stroke score was 1 very low it was still given tPA for which were now observing him and and has been no notable change in him and he never had any focal weakness associated with this He had CT scan with and without contrast and he had no vascular occlusive disease all bedside echo shows globally normal anatomy and no evidence of a patent foramen and even subsequent MRI just simply shows generalized volume loss but definitely no focal issue so I am a bit perplexed the unless more progressive infarct might have been aborted by the tPA a not really quite sure how to explain this event No history of seizure activity Review of Systems Review of Systems: Yes all other systems are reviewed and are negative [facility] Past Medical History Medical History (Updated 11/25/22 @ 16:26 by Erick Soto MD) Asthma exacerbation COPD (chronic obstructive pulmonary disease) COPD (chronic obstructive pulmonary disease) Dementia Hyperlipidemia Social History Social History Household Members: Caregiver Household Members Other:: [facility] [place] Housing: Jail Unable to assess alcohol history related to: Unable to respond Patient Tobacco Use Status: Never used Tobacco Smoked in Last 30 Days: No Second Hand Smoke Exposure: No Use of substances other than those prescribed or required for medical reasons: No Currently Displaying Signs/Symptoms of Drug Intoxication Withdrawal: No Any prior treatment program specific to substance use: No Have you been hit, kicked, punched, or otherwise hurt by someone within the past year? If so, by whom?: No Do you feel safe in your current relationship?: Yes Is there a partner from a previous relationship who is making you feel unsafe now?: No Are you made to feel afraid or neglected: No Spiritual Healthcare Practices: n/a Restoration Healthcare Practices: n/a Cultural Healthcare Practices: n/a Advance Directives: No Advance Directives Information Provided: No Do you have thoughts of harming others: None Do you have a plan to hurt others: No Plan Recently lost weight without trying: No Eating poorly because of decreased appetite: No Nutrition Risks: Dental problems and On aspiration precautions Current occupational status: retired Meds Allergies Allergy/AdvReac Type Severity Reaction Status Date / Time Unable to Assess Allergy Verified 11/25/22 01:57 Active Medications: Current Medications Sodium Chloride (0.9 % Sodium Chloride Flush 3 Ml [facility] Last Admin: 11/25/22 15:50 Dose: 3 ml Home Medications Medication Instructions Recorded Confirmed Last Taken Type acetaminophen 325 mg tablet 650 mg PO Q6H PRN Pain 11/25/22 11/25/22 Unknown History albuterol sulfate 90 mcg/actuation 2 puff inhalation Q4H PRN Wheezing 11/25/22 11/25/22 Unknown History aerosol inhaler aspirin 81 mg tablet,delayed 81 mg PO DAILY 11/25/22 11/25/22 Unknown History release atorvastatin 20 mg tablet 1 tab PO DAILY 11/25/22 11/25/22 Unknown History bisacodyl 10 mg rectal suppository 10 mg [place] DAILY PRN Constipation 11/25/22 11/25/22 Unknown History (Dulcolax (bisacodyl)) cholecalciferol (vitamin D3) 50 50 mcg PO DAILY 11/25/22 11/25/22 Unknown History mcg (2,000 unit) tablet diclofenac sodium 1 % topical gel 2 g topical QID 11/25/22 11/25/22 Unknown History divalproex 250 mg tablet,delayed 250 mg PO DAILY 11/25/22 11/25/22 Unknown History release divalproex 500 mg tablet,delayed 500 mg PO DAILY 11/25/22 11/25/22 Unknown History release docusate sodium 100 mg capsule 100 mg PO BID 11/25/22 11/25/22 Unknown History ferrous sulfate 325 mg (65 mg 325 mg PO DAILY 11/25/22 11/25/22 Unknown History iron) tablet finasteride 5 mg tablet 5 mg PO DAILY 11/25/22 11/25/22 Unknown History fluoxetine 20 mg capsule 20 mg PO DAILY 11/25/22 11/25/22 Unknown History fluticasone furoate 100 1 puff inhalation DAILY 11/25/22 11/25/22 Unknown History mcg/actuation blister powder for inhalation (Arnuity Ellipta) fluticasone propionate 50 1 spray intranasal DAILY 11/25/22 11/25/22 Unknown History mcg/actuation nasal spray,suspension furosemide 20 mg tablet 20 mg PO DAILY 11/25/22 11/25/22 Unknown History ibuprofen 200 mg tablet 200 mg PO Q6H PRN Pain 11/25/22 11/25/22 Unknown History loratadine 10 mg tablet 10 mg PO DAILY 11/25/22 11/25/22 Unknown History montelukast 10 mg tablet 10 mg PO QPM 11/25/22 11/25/22 Unknown History omeprazole 20 mg capsule,delayed 20 mg PO DAILY 11/25/22 11/25/22 Unknown History release pregabalin 150 mg capsule 150 mg PO BID 11/25/22 11/25/22 Unknown History tamsulosin 0.4 mg capsule 0.4 mg PO DAILY 11/25/22 11/25/22 Unknown History Physical Exam Vital Signs: Vital Signs: Last Vital Signs Temp 98.1 F 11/25/22 12:15 Pulse 94 11/25/22 15:00 Resp 20 11/25/22 15:00 BP 133/92 H 11/25/22 15:00 Pulse Ox 92 11/25/22 15:00 O2 Del Method 11/25/22 15:00 BMI result Body Mass Index 25.2 He is alert and oriented and he is nonfocal neurologically even confirmed by the neurologist examination Lungs with diminished bilateral breath sounds but no adventitious sounds no accessory muscle use Bedside echo with class 1 LV function and anatomy Abdomen is soft benign no organomegaly Results Labs 11/25/22 02:33 11/25/22 02:33 Labs: Laboratory Results - last 24 hr 11/25/22 11/25/22 11/25/22 01:58 01:59 02:33 MCV 87.5 MCH 29.5 MCHC 33.7 RDW 14.2 Plt Count 171 MPV 10.0 Immature Gran % (Auto) 0.4 Neut % (Auto) 74.4 H Lymph % (Auto) 15.3 L [place] % (Auto) 8.3 Eos % (Auto) 1.4 Baso % (Auto) 0.2 Lymph # (Auto) 1.3 [place] # (Auto) 0.7 Eos # (Auto) 0.1 Baso # (Auto) 0.0 Abs Immat Gran (auto) 0.03 Absolute Neuts (auto) 6.3 Absolute Nucleated RBC 0.000 Nucleated RBC % (auto) 0.0 Whole Blood PT 13.4 Whole Blood INR 1.1 Anion Gap Estim Creat Clear Calc Estimated GFR POC Glucose 131 H Random Glucose Lactic Acid Calcium Magnesium Total Bilirubin Direct Bilirubin AST ALT Alkaline Phosphatase Troponin I High Sens Total Protein Albumin Urine Color Urine Appearance Urine pH Ur Specific [place] Urine Protein Urine Glucose (UA) Urine Ketones Urine Blood Urine Nitrite Ur Leukocyte Esterase Urine RBC Urine WBC Ur Squamous Epith Cells Urine Bacteria Hyaline Casts COVID-19 ([place]) COVID-19 Clin Com 11/25/22 11/25/22 11/25/22 02:33 02:33 02:33 MCV MCH MCHC RDW Plt Count MPV Immature Gran % (Auto) Neut % (Auto) Lymph % (Auto) [place] % (Auto) Eos % (Auto) Baso % (Auto) Lymph # (Auto) [place] # (Auto) Eos # (Auto) Baso # (Auto) Abs Immat Gran (auto) Absolute Neuts (auto) Absolute Nucleated RBC Nucleated RBC % (auto) Whole Blood PT Whole Blood INR Anion Gap 13 Estim Creat Clear Calc 86.7 Estimated GFR > 60 POC Glucose Random Glucose 121 H Lactic Acid 1.3 Calcium 8.4 Magnesium 1.7 Total Bilirubin 1.1 H Direct Bilirubin 0.4 AST 9 ALT 9 Alkaline Phosphatase 66 Troponin I High Sens Total Protein 5.3 L Albumin 3.4 L Urine Color Urine Appearance Urine pH Ur Specific [place] Urine Protein Urine Glucose (UA) Urine Ketones Urine Blood Urine Nitrite Ur Leukocyte Esterase Urine RBC Urine WBC Ur Squamous Epith Cells Urine Bacteria Hyaline Casts COVID-19 ([place]) Negative COVID-19 Clin Com See Note 11/25/22 11/25/22 11/25/22 02:33 04:29 11:30 MCV MCH MCHC RDW Plt Count MPV Immature Gran % (Auto) Neut % (Auto) Lymph % (Auto) [place] % (Auto) Eos % (Auto) Baso % (Auto) Lymph # (Auto) [place] # (Auto) Eos # (Auto) Baso # (Auto) Abs Immat Gran (auto) Absolute Neuts (auto) Absolute Nucleated RBC Nucleated RBC % (auto) Whole Blood PT Whole Blood INR Anion Gap Estim Creat Clear Calc Estimated GFR POC Glucose 103 Random Glucose Lactic Acid Calcium Magnesium Total Bilirubin Direct Bilirubin AST ALT Alkaline Phosphatase Troponin I High Sens 3.4 Total Protein Albumin Urine Color Yellow Urine Appearance Clear Urine pH 7.0 Ur Specific [place] >= 1.030 H Urine Protein 30 (1+) H Urine Glucose (UA) Negative Urine Ketones Trace Urine Blood Large (3+) H Urine Nitrite Negative Ur Leukocyte Esterase Moderate (2+) H Urine RBC >20 H Urine WBC >50 H Ur Squamous Epith Cells 0-2 Urine Bacteria None Seen Hyaline Casts 0-2 COVID-19 ([place]) COVID-19 Clin Com 11/25/22 16:09 MCV MCH MCHC RDW Plt Count MPV Immature Gran % (Auto) Neut % (Auto) Lymph % (Auto) [place] % (Auto) Eos % (Auto) Baso % (Auto) Lymph # (Auto) [place] # (Auto) Eos # (Auto) Baso # (Auto) Abs Immat Gran (auto) Absolute Neuts (auto) Absolute Nucleated RBC Nucleated RBC % (auto) Whole Blood PT Whole Blood INR Anion Gap Estim Creat Clear Calc Estimated GFR POC Glucose 93 Random Glucose Lactic Acid Calcium Magnesium Total Bilirubin Direct Bilirubin AST ALT Alkaline Phosphatase Troponin I High Sens Total Protein Albumin Urine Color Urine Appearance Urine pH Ur Specific [place] Urine Protein Urine Glucose (UA) Urine Ketones Urine Blood Urine Nitrite Ur Leukocyte Esterase Urine RBC Urine WBC Ur Squamous Epith Cells Urine Bacteria Hyaline Casts COVID-19 ([place]) COVID-19 Clin Com Imaging Radiologist's Impressions: Impressions Head CT 11/25/22 02:04 IMPRESSION: No acute intracranial pathology. This critical result was discussed with Dr Pederson at 11/25/2022 2:09 AM and it was ascertained that the content and urgency of the report was understood at the time of direct communication. Head/Neck CTA 11/25/22 02:20 IMPRESSION: No large vessel occlusion or hemodynamically significant stenosis within the intracranial or extracranial arterial vasculature. Chest X-Ray 11/25/22 12:18 IMPRESSION: 1. Clips from prior cholecystectomy; otherwise no metallic foreign bodies in the chest or abdomen. KUB X-Ray 11/25/22 12:18 IMPRESSION: 1. Clips from prior cholecystectomy; otherwise no metallic foreign bodies in the chest or abdomen. Brain MRI 11/25/22 14:41 IMPRESSION: - No acute intracranial findings. No acute infarcts and no MRI evidence of acute intracranial hemorrhage. - There is global cerebral volume loss and there is mild chronic microangiopathy. Assessment and Plan (1) Dysarthria: Status: Acute (2) COPD (chronic obstructive pulmonary disease): Status: Acute Plan Will observe for any evidence of seizure activity questionable metabolic issue and I will send off and ammonia level only because of the Depakote Time Spent With Patient Time: Total time managing care of this patient today40 ____ minutes.
[2022-11-25 16:54] LABS: Ammonia 34 umol/L (13-55)
[2022-11-25 18:27] LABS: Amphetamine Screen Urine Not Detected (Not Detect); Barbiturates, Urine Not Detected (Not Detect); Benzodiazepines Screen Urine Not Detected (Not Detect); Cannabinoid Screen Urine Not Detected (Not Detect); Cocaine Screen Urine Not Detected (Not Detect); Fentanyl, urine Not Detected (Not Detect); Opiate Screen Urine Not Detected (Not Detect); Phencyclidine Screen Urine Not Detected (Not Detect)
[2022-11-25] MEDS: Divalproex Sodium 500 MG TABLET.DR PO (19:30)
--- NOTE | 2022-11-25 21:05 | PC.NURSE ---
Assumed care at 1030 AM. Patient admitted S/p TPA, Alert, oriented to person and place, time of day but not month or year. Neuros per protocol, were Q15 minutes, discussed with MD and changed to Q1 hour. Patient with dysarthria and aphasia, appears to have delay in finding words, slurred speech, occasionally garbled speech, also appearance of possible receptive aphasia in that he will give answers to questions that seem irrelevant and confused. Impaired short term memory apparent and intact mcfp memory. Follows commands inconsistently. Reports dizziness that appeared to be a possible change in exam, and MD notified. Patient unable to answer MRI screener, and his unable to be reached by telephone, MD notified, and KUB and CXR for MRI clearance. Patient denied pain, expressed orthopnea. Patient was cleared by MD to get OOB just for PT eval, which was done and patient 1 assist with walker. Patient was kept on bedrest and also allowed to get OOB only for commode. Patient voiding in urinal and commode. Passed nursing bedside swallow eval, and has pureed diet at baseline, and COMPUTER SYSTEM VALIDATION SPECIALIST eval done and MD notified. Patient had OT eval done as well. Patient describes a history of falls with head injuries.
[2022-11-25 21:36] LABS: Glucose, Whole Blood 110 mg/dL (60-115)
[2022-11-26] VITALS: BP 135/74; PULSE 94; RESP 20; TEMP 37.6; O2SAT 94
[2022-11-26 03:53] VITALS: BP 130/78; PULSE 92; RESP 16; TEMP 37.1; O2SAT 95
[2022-11-26 06:00] VITALS: BMI 24.5
[2022-11-26 07:14] VITALS: BP 142/80; PULSE 74; RESP 20; TEMP 37.2; O2SAT 93
[2022-11-26 07:43] LABS: MANUAL DIFF FLAG NO
[2022-11-26 07:45] LABS: Basophils Percent Auto 0.5 % (0-2); Eosinophils Absolute Auto 0.1 X10*3/uL (0.0-0.4); Eosinophils Percent Auto 1.2 % (0-4); Hematocrit 40.5 % (42.0-52.0); Hemoglobin 13.8 g/dl (14.0-18.0); Imm Gran Abs Auto 0.05 X10*3/uL (0.00-0.03); Imm Gran Pct Auto 0.6 % (0.0-0.4); Lymphocytes Absolute Auto 1.3 X10*3/uL (1.2-4.9); Lymphocytes Percent Auto 16.2 % (20-40); Mean Corpuscular HGB Conc 34.1 g/dl (31.0-36.0); Mean Corpuscular Hemoglobin 29.7 pg (27.0-33.0); Mean Corpuscular Volume 87.3 fL (80.0-98.0); Mean Platelet Volume 10.3 fL (9.4-12.4); Monocytes Absolute Auto 0.8 X10*3/uL (0.1-1.2); Monocytes Percent Auto 10.2 % (2-11); Neutrophils Absolute Auto 5.5 x10*3/uL (2.0-8.3); Neutrophils Percent Auto 71.3 % (45-73); Platelet Count 185 X10*3/uL (160-400); Red Blood Count 4.64 X10*6/uL (4.60-5.80); White Blood Count 7.8 X10*3/uL (4.8-10.8)
[2022-11-26 08:11] LABS: Glucose, Whole Blood 105 mg/dL (60-115)
[2022-11-26 08:18] LABS: Anion Gap 12 (12-20); Blood Urea Nitrogen 9 mg/dL (9-16); Calcium 8.7 mg/dL (8.4-10.2); Carbon Dioxide 28 mmol/L (22-29); Chloride 105 mmol/L (96-108); Cholesterol 123 mg/dL; Creatinine Clr Calc Pharmacy 101.1; Estimated Glomerular Filt Rate > 60; Glucose Random 91 mg/dL (60-115); HDL Cholesterol 53 mg/dL; LDL Cholesterol Calculated 59 mg/dl; Potassium 4.1 mmol/L (3.3-5.1); Sodium 141 mmol/L (135-145); Triglycerides 57 mg/dL
[2022-11-26] MEDS: 0.9 % Sodium Chloride Flush 3 ML SYRINGE IVFLUSH (09:22)
--- NOTE | 2022-11-26 10:55 | PM.DS ---
DS: Providers Provider Date of Service: 11/26/22 Date of admission: 11/25/22 09:04 Date of discharge: 11/26/22 Primary care physician: Unknown Physician Consults: 11/25/22 10:22 Consult to Neurology Routine Consulting Provider: Carol Nair Reason for consultation: s/p tpa Has provider been notified: Yes Attending physician on discharge: Sapphire Espitia Discharging clinician: tiffany DS: Diagnosis Discharge Diagnosis (1) Cerebrovascular accident: Status: Acute DS: Summary Hospital Course Hospital Course: From H&P on day of admission 72-year-old male smoker with COPD some behavioral issues and and dementia on a combination of pregabalin as well as Depakote and for COPD he is on albuterol and Singulair and has been on aspirin prophylaxis and came out less than 1/2 hour after he was [facility] and said that something was wrong and they noticed that he had increasingly garbled speech so he came to the emergency room and even though his NIH stroke score was 1 very low it was still given tPA for which were now observing him and and has been no notable change in him and he never had any focal weakness associated with this He had CT scan with and without contrast and he had no vascular occlusive disease all bedside echo shows globally normal anatomy and no evidence of a patent foramen and even subsequent MRI just simply shows generalized volume loss but definitely no focal issue so I am a bit perplexed the unless more progressive infarct might have been aborted by the tPA a not really quite sure how to explain this event No history of seizure activity Acute stroke. Patient was brought to the emergency department after he was noted to have slurred speech. Initial brain imaging was negative. He was treated with tPA in the emergency department and transferred to the ICU for close neurological monitoring. MRI of the brain showed no acute intracranial findings. He was seen in consultation by Neurology who felt that he likely had small left hemisphere infarct aborted by tPA. Recommended to start baby aspirin. ECHO showed no obvious valvular pathology, no evidence of inter atrial shunt. CT angio of the head/ neck showed no large vessel occlusion or hemodynamically significant stenosis within the intracranial or extracranial arterial vasculature. He was seen by Physical therapy and Occupational, not indicated at the time of discharge. he was seen by speech recommended to start pureed solids and thin liquids with pills whole or crushed in puree. Recommend supervision and aspiration precautions as needed. Can be re-evaluated when the patient has dentures for possible advancement of diet. 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 Urinalysis was concerning for UTI, pt unable to provide any history regarding symptoms, Preliminary urine culture growing 50-100 CFU of Proteus, will cover with 3 days of ceftin. Time Spent with Patient Time attestation: Total time managing care of this patient today ____ minutes. Discharge coordination time: Greater than 30 minutes Quality: Safe Use of Opioids Does Pt have an Active Cancer Diagnosis on the Problem List?: No Quality: Stroke Does the patient have a stroke diagnosis?: Yes Reason for No Anti-thrombotic at DC: N/A - Med Ordered Reason for No Anticoagulant at DC: N/A - Med Ordered Reason Not Initiating IV-Tpa: N/A - Med Ordered Reason for No Anti-thrombotic by Day Two: N/A - Med Ordered Reason for No Statin at DC: N/A - Med Ordered Physical Exam Vital Signs: Vital Signs: Last Vital Signs Temp 98.9 F 11/26/22 07:14 Pulse 74 11/26/22 07:14 Resp 20 11/26/22 07:14 BP 142/80 H 11/26/22 07:14 Pulse Ox 93 11/26/22 07:14 O2 Del Method 11/26/22 07:14 BMI result Body Mass Index 24.5 Const: General: cooperative, comfortable, no acute distress, alert and awake Nutritional Appearance: thin Orientation/consciousness: oriented to person Resp: Effort & Inspection: normal respiratory effort Cardio: Rate: regular rate Heart sounds: S1 normal heart sound present and S2 normal heart sound present GI: Inspection: No distended Palpation (GI): Soft to palpation Neuro: Other: tongue midline, face symmetrical, able to follow most commands, strength equal bilaterally General: oriented to person Extrem: General: Yes no pedal edema DS: Data Data Completed and Pending Labs on day of discharge: Laboratory Results - last 24 hr 11/25/22 11/25/22 11/25/22 11:30 16:09 16:39 WBC RBC Hgb Hct MCV MCH MCHC RDW Plt Count MPV Immature Gran % (Auto) Neut % (Auto) Lymph % (Auto) [place] % (Auto) Eos % (Auto) Baso % (Auto) Lymph # (Auto) [place] # (Auto) Eos # (Auto) Baso # (Auto) Abs Immat Gran (auto) Absolute Neuts (auto) Absolute Nucleated RBC Nucleated RBC % (auto) Sodium Potassium Chloride Carbon Dioxide Anion Gap BUN Creatinine Estim Creat Clear Calc Estimated GFR POC Glucose 103 93 Random Glucose Calcium Ammonia 34 Triglycerides Cholesterol LDL Cholesterol, Calc HDL Cholesterol Urine Opiates Screen Urine Fentanyl Screen Ur Barbiturates Screen Ur Phencyclidine Scrn Ur Amphetamines Screen U Benzodiazepines Scrn Urine Cocaine Screen U Marijuana (THC) Screen 11/25/22 11/25/22 11/26/22 18:04 21:29 06:36 WBC 7.8 RBC 4.64 Hgb 13.8 L Hct 40.5 L MCV 87.3 MCH 29.7 MCHC 34.1 RDW 14.0 Plt Count 185 MPV 10.3 Immature Gran % (Auto) 0.6 H Neut % (Auto) 71.3 Lymph % (Auto) 16.2 L [place] % (Auto) 10.2 Eos % (Auto) 1.2 Baso % (Auto) 0.5 Lymph # (Auto) 1.3 [place] # (Auto) 0.8 Eos # (Auto) 0.1 Baso # (Auto) 0.0 Abs Immat Gran (auto) 0.05 H Absolute Neuts (auto) 5.5 Absolute Nucleated RBC 0.000 Nucleated RBC % (auto) 0.0 Sodium Potassium Chloride Carbon Dioxide Anion Gap BUN Creatinine Estim Creat Clear Calc Estimated GFR POC Glucose 110 Random Glucose Calcium Ammonia Triglycerides Cholesterol LDL Cholesterol, Calc HDL Cholesterol Urine Opiates Screen Not Detected Urine Fentanyl Screen Not Detected Ur Barbiturates Screen Not Detected Ur Phencyclidine Scrn Not Detected Ur Amphetamines Screen Not Detected U Benzodiazepines Scrn Not Detected Urine Cocaine Screen Not Detected U Marijuana (THC) Screen Not Detected 11/26/22 11/26/22 06:36 07:23 WBC RBC Hgb Hct MCV MCH MCHC RDW Plt Count MPV Immature Gran % (Auto) Neut % (Auto) Lymph % (Auto) [place] % (Auto) Eos % (Auto) Baso % (Auto) Lymph # (Auto) [place] # (Auto) Eos # (Auto) Baso # (Auto) Abs Immat Gran (auto) Absolute Neuts (auto) Absolute Nucleated RBC Nucleated RBC % (auto) Sodium 141 Potassium 4.1 Chloride 105 Carbon Dioxide 28 Anion Gap 12 BUN 9 Creatinine 0.66 Estim Creat Clear Calc 101.1 Estimated GFR > 60 POC Glucose 105 Random Glucose 91 Calcium 8.7 Ammonia Triglycerides 57 Cholesterol 123 LDL Cholesterol, Calc 59 HDL Cholesterol 53 Urine Opiates Screen Urine Fentanyl Screen Ur Barbiturates Screen Ur Phencyclidine Scrn Ur Amphetamines Screen U Benzodiazepines Scrn Urine Cocaine Screen U Marijuana (THC) Screen Preliminary micro results at discharge 11/25/22 02:33 Blood Culture - Preliminary Blood - Venous No growth after 24 hours. 11/25/22 02:33 Blood Culture - Preliminary Blood - Venous No growth after 24 hours. Discharge Plan Discharge Anticipated Discharge Date/Time: 11/26/22 11:04 Patient Disposition: Xfer SNF Discharge Diagnosis: Probable acute stroke [facility]: [facility] [Outside] - 1 Week Physician,Unknown J [Primary Care Provider] - 1 Week Discharge Medications: New atorvastatin [Lipitor] 40 mg tablet 40 mg PO BEDTIME 30 Days Qty: 30 0RF cefuroxime axetil 250 mg tablet 250 mg PO BID 3 Days Qty: 6 0RF Continued acetaminophen 325 mg Tablet 650 mg PO Q6H PRN (Reason: Pain) divalproex 250 mg Tablet,Delayed Release (Dr/Ec) 250 mg PO DAILY divalproex 500 mg tablet,delayed release (DR/EC) 500 mg PO DAILY aspirin 81 mg Tablet,Delayed Release (Dr/Ec) 81 mg PO DAILY bisacodyl [Dulcolax (bisacodyl)] 10 mg Suppository 10 mg [place] DAILY PRN (Reason: Constipation) ferrous sulfate 325 mg (65 mg iron) Tablet 325 mg PO DAILY docusate sodium 100 mg Capsule 100 mg PO BID albuterol sulfate 90 mcg/actuation HFA aerosol inhaler 2 puff inhalation Q4H PRN (Reason: Wheezing) loratadine 10 mg Tablet 10 mg PO DAILY diclofenac sodium 1 % Gel 2 g TOPICAL QID Rx Instructions: apply to single elbow, wrist or hand; for hand includes palm/fingers/back of hand cholecalciferol (vitamin D3) 50 mcg (2,000 unit) Tablet 50 mcg PO DAILY Arnuity Ellipta 100 mcg/actuation blister with device 1 puff inhalation DAILY fluticasone propionate 50 mcg/actuation [place],Suspension 1 spray INTRANASAL DAILY Rx Instructions: administer into each nostril finasteride 5 mg Tablet 5 mg PO DAILY tamsulosin 0.4 mg Capsule 0.4 mg PO DAILY ibuprofen 200 mg Tablet 200 mg PO Q6H PRN (Reason: Pain) omeprazole 20 mg Capsule,Delayed Release(Dr/Ec) 20 mg PO DAILY montelukast 10 mg Tablet 10 mg PO QPM furosemide 20 mg Tablet 20 mg PO DAILY fluoxetine 20 mg Capsule 20 mg PO DAILY pregabalin 150 mg Capsule 150 mg PO BID Discontinued atorvastatin 20 mg tablet 1 tab PO DAILY Discharge Orders: Discharge Order (Routine); Ordered 11/26/22 Ordered By: Rowena Field Activity on Discharge: As tolerated Stand Alone Forms: Patient Portal Discharge page Care Plan Goals: Prevent recurrent stroke Health Concerns: probable acute stroke possible UTI Plan of Treatment: take aspirin daily dose of Lipitor has been increased complete course of antibiotics as prescribed Assessment: see discharge summary Discharge Date/Time: 11/26/22 17:40
[2022-11-26 11:01] VITALS: BP 141/83; PULSE 77; RESP 20; TEMP 36.7; O2SAT 95
[2022-11-26 11:01] LABS: Glucose, Whole Blood 107 mg/dL (60-115)
[2022-11-26] MEDS: Pregabalin 150 MG CAPSULE PO (11:27)
[2022-11-26] MEDS: FLUoxetine HCl 20 MG CAPSULE PO (11:27)
[2022-11-26] MEDS: Furosemide 20 MG TABLET PO (11:28)
[2022-11-26] MEDS: Atorvastatin Calcium 20 MG TABLET PO (11:28)
[2022-11-26] MEDS: Divalproex Sodium 500 MG TABLET.DR PO (11:28)
[2022-11-26] MEDS: Divalproex Sodium 250 MG TABLET.DR PO (11:28)
--- NOTE | 2022-11-26 12:05 | MHC.CM.PN ---
order for return to SNF. This RNCM reached out to [facility]/previous SNF who has already accepted patient for return, this RNCM notified Center via [employer] that patient will be returning at 16:00. Transport set up via [facility] (phone and Form completed and given to Search Marketing Analyst).
[2022-11-26 15:10] VITALS: BP 110/62; PULSE 69; RESP 20; TEMP 36.6; O2SAT 95
[2022-11-26 16:10] LABS: Glucose, Whole Blood 106 mg/dL (60-115)
--- NOTE | 2022-11-28 09:37 | MHC.STROKE ---
ADDENDUM CLARIFICATION FROM 11/25/228, TPA DECISION DELAYED AND CLARIFIED WITH MD AND NEUROLOGIST: TPA GIVEN > 30MIN AND 45 MIN DUE TO LOW NIHSS, NO TEETH, CLARIFYING THE BASELINE WITH THE SNF, THEREFORE CARE TEAM WAS DETERMINING ELIGIBILITY IS THE CAUSE OF THE DELAY GREATER THAN 30 MIN AND 45 MIN.
== END 2022-11-26 17:40 | disposition skilled nursing facility (03) | DRG 62 ==
LOC: HO.ED 06:07 → HO.EDOVER 09:11 → HO.ICU 09:53 → HO.IMC 21:21
PROVIDERS: Admitting Provider Internal Medicine Cardiovascular Disease; Emergency Provider Emergency Medicine; Visit Provider Physician Assistant Medical
DX: I63.9 Cerebral infarction, unspecified (principal); N39.0 Urinary tract infection, site not specified; R47.81 Slurred speech; J44.9 Chronic obstructive pulmonary disease, unspecified; R29.701 NIHSS score 1; B96.4 Proteus (mirabilis) (morganii) as the cause of diseases classified elsewhere; E78.5 Hyperlipidemia, unspecified; F03.90 Unspecified dementia, unspecified severity, without behavioral disturbance, psychotic disturbance, mood disturbance, and anxiety; Z20.822 Contact with and (suspected) exposure to COVID-19; Z79.51 Long term (current) use of inhaled steroids; Z79.82 Long term (current) use of aspirin; Z79.899 Other long term (current) drug therapy
CPT/HCPCS: 36415; 70450; 70496; 70498; 70551; 71045; 74018; 80048; 80061; 80076; 80307; 81001; 82140; 82947; 83605; 83735; 84484; 85025; 85610; 87040; 87086; 87088; 87186; 87635; 92610; 93005; 93306; 97162; 97166; 99285; J2997; Q9967

== ENCOUNTER 2022-11-30 06:04 | Outpatient (REF) | payer OTHER, SELFPAY ==
[2022-11-30 06:08] LABS: MANUAL DIFF FLAG NO
[2022-11-30 06:27] LABS: Basophils Percent Auto 0.6 % (0-2); Eosinophils Absolute Auto 0.2 X10*3/uL (0.0-0.4); Eosinophils Percent Auto 4.7 % (0-4); Hematocrit 35.6 % (42.0-52.0); Hemoglobin 11.9 g/dl (14.0-18.0); Imm Gran Abs Auto 0.03 X10*3/uL (0.00-0.03); Imm Gran Pct Auto 0.6 % (0.0-0.4); Lymphocytes Absolute Auto 1.3 X10*3/uL (1.2-4.9); Lymphocytes Percent Auto 25.3 % (20-40); Mean Corpuscular HGB Conc 33.4 g/dl (31.0-36.0); Mean Corpuscular Hemoglobin 29.5 pg (27.0-33.0); Mean Corpuscular Volume 88.1 fL (80.0-98.0); Mean Platelet Volume 9.9 fL (9.4-12.4); Monocytes Absolute Auto 0.5 X10*3/uL (0.1-1.2); Monocytes Percent Auto 10.1 % (2-11); Neutrophils Percent Auto 58.7 % (45-73); Platelet Count 201 X10*3/uL (160-400); Red Blood Count 4.04 X10*6/uL (4.60-5.80); Red Cell Distribution Width 13.8 % (11.0-16.0); White Blood Count 5.1 X10*3/uL (4.8-10.8)
[2022-11-30 06:49] LABS: Alanine Aminotransferase 11 U/L (0-40); Alkaline Phosphatase 59 U/L (39-117); Anion Gap 11 (12-20); Aspartate Amino Transferase 12 U/L (5-37); Bilirubin Total 0.5 mg/dL (0.0-1.0); Blood Urea Nitrogen 13 mg/dL (9-16); Carbon Dioxide 26 mmol/L (22-29); Chloride 110 mmol/L (96-108); Estimated Glomerular Filt Rate > 60; Glucose Random 91 mg/dL (60-115); Potassium 3.6 mmol/L (3.3-5.1); Sodium 143 mmol/L (135-145); Total Protein 4.8 g/dL (6.5-8.0)
== END 2022-11-30 06:05 | disposition home or self-care (01) ==
LOC: HO.MMNH1L 06:04
PROVIDERS: Visit Provider Family Medicine
DX: J44.9 Chronic obstructive pulmonary disease, unspecified (principal)
CPT/HCPCS: 36415; 80053; 85025

== ENCOUNTER 2022-12-05 05:55 | Outpatient (REF) | payer OTHER, SELFPAY ==
[2022-12-05 05:46] LABS: MANUAL DIFF FLAG NO
[2022-12-05 06:26] LABS: Basophils Percent Auto 0.6 % (0-2); Eosinophils Absolute Auto 0.3 X10*3/uL (0.0-0.4); Eosinophils Percent Auto 5.3 % (0-4); Hematocrit 37.3 % (42.0-52.0); Hemoglobin 12.3 g/dl (14.0-18.0); Imm Gran Abs Auto 0.03 X10*3/uL (0.00-0.03); Imm Gran Pct Auto 0.6 % (0.0-0.4); Lymphocytes Absolute Auto 1.3 X10*3/uL (1.2-4.9); Lymphocytes Percent Auto 25.5 % (20-40); Mean Corpuscular Hemoglobin 29.2 pg (27.0-33.0); Mean Corpuscular Volume 88.6 fL (80.0-98.0); Mean Platelet Volume 9.5 fL (9.4-12.4); Monocytes Absolute Auto 0.5 X10*3/uL (0.1-1.2); Monocytes Percent Auto 8.8 % (2-11); Neutrophils Percent Auto 59.2 % (45-73); Platelet Count 237 X10*3/uL (160-400); Red Blood Count 4.21 X10*6/uL (4.60-5.80); Red Cell Distribution Width 13.9 % (11.0-16.0); White Blood Count 5.1 X10*3/uL (4.8-10.8)
[2022-12-05 07:22] LABS: Anion Gap 10 (12-20); Blood Urea Nitrogen 13 mg/dL (9-16); Calcium 8.2 mg/dL (8.4-10.2); Carbon Dioxide 29 mmol/L (22-29); Chloride 108 mmol/L (96-108); Estimated Glomerular Filt Rate > 60; Glucose Random 90 mg/dL (60-115); Potassium 3.9 mmol/L (3.3-5.1); Sodium 143 mmol/L (135-145)
== END 2022-12-05 05:56 | disposition home or self-care (01) ==
LOC: HO.MMNH1L 05:55
PROVIDERS: Visit Provider Family Medicine
DX: J44.9 Chronic obstructive pulmonary disease, unspecified (principal)
CPT/HCPCS: 36415; 80048; 85025

== ENCOUNTER 2022-12-12 06:18 | Outpatient (REF) | payer OTHER, SELFPAY ==
[2022-12-12 06:07] LABS: MANUAL DIFF FLAG NO
[2022-12-12 06:40] LABS: Basophils Percent Auto 0.6 % (0-2); Eosinophils Absolute Auto 0.1 X10*3/uL (0.0-0.4); Eosinophils Percent Auto 2.4 % (0-4); Hematocrit 39.8 % (42.0-52.0); Imm Gran Abs Auto 0.03 X10*3/uL (0.00-0.03); Imm Gran Pct Auto 0.6 % (0.0-0.4); Lymphocytes Absolute Auto 1.4 X10*3/uL (1.2-4.9); Mean Corpuscular HGB Conc 32.7 g/dl (31.0-36.0); Mean Corpuscular Hemoglobin 28.8 pg (27.0-33.0); Mean Corpuscular Volume 88.1 fL (80.0-98.0); Mean Platelet Volume 10.2 fL (9.4-12.4); Monocytes Absolute Auto 0.5 X10*3/uL (0.1-1.2); Monocytes Percent Auto 9.2 % (2-11); Neutrophils Absolute Auto 3.4 x10*3/uL (2.0-8.3); Neutrophils Percent Auto 62.2 % (45-73); Platelet Count 243 X10*3/uL (160-400); Red Blood Count 4.52 X10*6/uL (4.60-5.80); Red Cell Distribution Width 14.2 % (11.0-16.0); White Blood Count 5.4 X10*3/uL (4.8-10.8)
[2022-12-12 07:19] LABS: Anion Gap 12 (12-20); Blood Urea Nitrogen 12 mg/dL (9-16); Calcium 8.7 mg/dL (8.4-10.2); Carbon Dioxide 26 mmol/L (22-29); Chloride 108 mmol/L (96-108); Estimated Glomerular Filt Rate > 60; Glucose Random 87 mg/dL (60-115); Potassium 3.6 mmol/L (3.3-5.1); Sodium 142 mmol/L (135-145)
== END 2022-12-12 06:19 | disposition home or self-care (01) ==
LOC: HO.MMNH1L 06:18
PROVIDERS: Visit Provider Family Medicine
DX: J44.9 Chronic obstructive pulmonary disease, unspecified (principal)
CPT/HCPCS: 36415; 80048; 85025

== ENCOUNTER 2022-12-19 06:26 | Outpatient (REF) | payer OTHER, SELFPAY ==
[2022-12-19 06:11] LABS: MANUAL DIFF FLAG NO
[2022-12-19 06:58] LABS: Basophils Percent Auto 0.5 % (0-2); Eosinophils Absolute Auto 0.3 X10*3/uL (0.0-0.4); Eosinophils Percent Auto 5.8 % (0-4); Hematocrit 37.9 % (42.0-52.0); Hemoglobin 12.4 g/dl (14.0-18.0); Imm Gran Abs Auto 0.02 X10*3/uL (0.00-0.03); Imm Gran Pct Auto 0.4 % (0.0-0.4); Lymphocytes Absolute Auto 1.6 X10*3/uL (1.2-4.9); Lymphocytes Percent Auto 27.7 % (20-40); Mean Corpuscular HGB Conc 32.7 g/dl (31.0-36.0); Mean Corpuscular Hemoglobin 28.9 pg (27.0-33.0); Mean Corpuscular Volume 88.3 fL (80.0-98.0); Mean Platelet Volume 10.4 fL (9.4-12.4); Monocytes Absolute Auto 0.4 X10*3/uL (0.1-1.2); Neutrophils Absolute Auto 3.4 x10*3/uL (2.0-8.3); Neutrophils Percent Auto 58.6 % (45-73); Platelet Count 213 X10*3/uL (160-400); Red Blood Count 4.29 X10*6/uL (4.60-5.80); Red Cell Distribution Width 14.3 % (11.0-16.0); White Blood Count 5.7 X10*3/uL (4.8-10.8)
[2022-12-19 07:32] LABS: Anion Gap 10 (12-20); Blood Urea Nitrogen 15 mg/dL (9-16); Calcium 8.3 mg/dL (8.4-10.2); Carbon Dioxide 28 mmol/L (22-29); Chloride 107 mmol/L (96-108); Estimated Glomerular Filt Rate > 60; Glucose Random 87 mg/dL (60-115); Potassium 3.5 mmol/L (3.3-5.1); Sodium 141 mmol/L (135-145)
== END 2022-12-19 06:27 | disposition home or self-care (01) ==
LOC: HO.MMNH1L 06:26
PROVIDERS: Visit Provider Family Medicine
DX: J44.9 Chronic obstructive pulmonary disease, unspecified (principal)
CPT/HCPCS: 36415; 80048; 85025

== ENCOUNTER 2022-12-26 06:00 | Outpatient (REF) | payer OTHER, SELFPAY ==
[2022-12-26 05:53] LABS: MANUAL DIFF FLAG NO
[2022-12-26 06:13] LABS: Basophils Percent Auto 0.4 % (0-2); Eosinophils Absolute Auto 0.4 X10*3/uL (0.0-0.4); Eosinophils Percent Auto 7.3 % (0-4); Hematocrit 38.7 % (42.0-52.0); Hemoglobin 12.6 g/dl (14.0-18.0); Imm Gran Abs Auto 0.02 X10*3/uL (0.00-0.03); Imm Gran Pct Auto 0.4 % (0.0-0.4); Lymphocytes Absolute Auto 1.5 X10*3/uL (1.2-4.9); Lymphocytes Percent Auto 28.9 % (20-40); Mean Corpuscular HGB Conc 32.6 g/dl (31.0-36.0); Mean Corpuscular Hemoglobin 29.4 pg (27.0-33.0); Mean Corpuscular Volume 90.2 fL (80.0-98.0); Mean Platelet Volume 10.6 fL (9.4-12.4); Monocytes Absolute Auto 0.4 X10*3/uL (0.1-1.2); Monocytes Percent Auto 7.9 % (2-11); Neutrophils Absolute Auto 2.8 x10*3/uL (2.0-8.3); Neutrophils Percent Auto 55.1 % (45-73); Platelet Count 160 X10*3/uL (160-400); Red Blood Count 4.29 X10*6/uL (4.60-5.80); Red Cell Distribution Width 14.1 % (11.0-16.0); White Blood Count 5.1 X10*3/uL (4.8-10.8)
[2022-12-26 06:38] LABS: Anion Gap 11 (12-20); Blood Urea Nitrogen 11 mg/dL (9-16); Calcium 8.3 mg/dL (8.4-10.2); Carbon Dioxide 29 mmol/L (22-29); Chloride 108 mmol/L (96-108); Estimated Glomerular Filt Rate > 60; Glucose Random 94 mg/dL (60-115); Potassium 3.7 mmol/L (3.3-5.1); Sodium 144 mmol/L (135-145)
== END 2022-12-26 06:01 | disposition home or self-care (01) ==
LOC: HO.MMNH1L 06:00
PROVIDERS: Visit Provider Family Medicine
DX: J44.9 Chronic obstructive pulmonary disease, unspecified (principal)
CPT/HCPCS: 36415; 80048; 85025

== ENCOUNTER 2023-01-02 06:07 | Outpatient (REF) | payer OTHER, SELFPAY ==
[2023-01-02 05:57] LABS: MANUAL DIFF FLAG NO
[2023-01-02 06:55] LABS: Basophils Percent Auto 0.4 % (0-2); Eosinophils Absolute Auto 0.4 X10*3/uL (0.0-0.4); Eosinophils Percent Auto 8.8 % (0-4); Hematocrit 35.8 % (42.0-52.0); Hemoglobin 11.7 g/dl (14.0-18.0); Imm Gran Abs Auto 0.01 X10*3/uL (0.00-0.03); Imm Gran Pct Auto 0.2 % (0.0-0.4); Lymphocytes Absolute Auto 1.2 X10*3/uL (1.2-4.9); Lymphocytes Percent Auto 24.1 % (20-40); Mean Corpuscular HGB Conc 32.7 g/dl (31.0-36.0); Mean Corpuscular Hemoglobin 28.8 pg (27.0-33.0); Mean Corpuscular Volume 88.2 fL (80.0-98.0); Mean Platelet Volume 10.5 fL (9.4-12.4); Monocytes Absolute Auto 0.4 X10*3/uL (0.1-1.2); Neutrophils Absolute Auto 2.8 x10*3/uL (2.0-8.3); Neutrophils Percent Auto 57.5 % (45-73); Platelet Count 138 X10*3/uL (160-400); Red Blood Count 4.06 X10*6/uL (4.60-5.80); Red Cell Distribution Width 14.3 % (11.0-16.0); White Blood Count 4.9 X10*3/uL (4.8-10.8)
[2023-01-02 07:31] LABS: Anion Gap 10 (12-20); Blood Urea Nitrogen 13 mg/dL (9-16); Carbon Dioxide 27 mmol/L (22-29); Chloride 106 mmol/L (96-108); Estimated Glomerular Filt Rate > 60; Glucose Random 98 mg/dL (60-115); Potassium 3.3 mmol/L (3.3-5.1); Sodium 140 mmol/L (135-145)
== END 2023-01-02 06:08 | disposition home or self-care (01) ==
LOC: HO.MMNH1L 06:07
PROVIDERS: Visit Provider Family Medicine
DX: J44.9 Chronic obstructive pulmonary disease, unspecified (principal)
CPT/HCPCS: 36415; 80048; 85025

== ENCOUNTER 2023-01-09 05:51 | Outpatient (REF) | payer OTHER, SELFPAY ==
[2023-01-09 05:43] LABS: MANUAL DIFF FLAG NO
[2023-01-09 06:24] LABS: Basophils Percent Auto 0.4 % (0-2); Eosinophils Absolute Auto 0.2 X10*3/uL (0.0-0.4); Eosinophils Percent Auto 4.2 % (0-4); Hematocrit 38.5 % (42.0-52.0); Hemoglobin 12.6 g/dl (14.0-18.0); Imm Gran Abs Auto 0.02 X10*3/uL (0.00-0.03); Imm Gran Pct Auto 0.4 % (0.0-0.4); Lymphocytes Absolute Auto 1.4 X10*3/uL (1.2-4.9); Lymphocytes Percent Auto 27.6 % (20-40); Mean Corpuscular HGB Conc 32.7 g/dl (31.0-36.0); Mean Corpuscular Hemoglobin 28.8 pg (27.0-33.0); Mean Corpuscular Volume 88.1 fL (80.0-98.0); Mean Platelet Volume 9.6 fL (9.4-12.4); Monocytes Absolute Auto 0.5 X10*3/uL (0.1-1.2); Monocytes Percent Auto 9.7 % (2-11); Neutrophils Absolute Auto 2.9 x10*3/uL (2.0-8.3); Neutrophils Percent Auto 57.7 % (45-73); Platelet Count 243 X10*3/uL (160-400); Red Blood Count 4.37 X10*6/uL (4.60-5.80)
[2023-01-09 06:43] LABS: Anion Gap 11 (12-20); Blood Urea Nitrogen 11 mg/dL (9-16); Calcium 8.3 mg/dL (8.4-10.2); Carbon Dioxide 28 mmol/L (22-29); Chloride 109 mmol/L (96-108); Estimated Glomerular Filt Rate > 60; Glucose Random 90 mg/dL (60-115); Potassium 3.8 mmol/L (3.3-5.1); Sodium 144 mmol/L (135-145)
== END 2023-01-09 05:52 | disposition home or self-care (01) ==
LOC: HO.MMNH1L 05:51
PROVIDERS: Visit Provider Family Medicine
DX: J44.9 Chronic obstructive pulmonary disease, unspecified (principal)
CPT/HCPCS: 36415; 80048; 85025

== ENCOUNTER 2023-01-13 11:23 | Outpatient (REF) | payer OTHER, SELFPAY ==
[2023-01-13 11:46] LABS: Appearance Urine Clear; Color Urine Yellow; Glucose Urine UA Negative (Negative); Leukocyte Esterase Urine Negative (Negative); Nitrite Urine Negative (Negative); PH 8.5 (5.0-9.0); Specific Gravity - Urine 1.015 (1.005-1.025); Urine Blood Negative (Negative); Urine Ketones Negative (Negative); Urine Protein Negative (Neg-Trace)
== END 2023-01-13 11:24 | disposition home or self-care (01) ==
LOC: HO.MMNH1L 11:23
PROVIDERS: Visit Provider Family Medicine
DX: N40.1 Benign prostatic hyperplasia with lower urinary tract symptoms (principal); F01.518 Vascular dementia, unspecified severity, with other behavioral disturbance
CPT/HCPCS: 81003; 87086

== ENCOUNTER 2023-01-16 06:01 | Outpatient (REF) | payer OTHER, SELFPAY ==
[2023-01-16 05:58] LABS: MANUAL DIFF FLAG NO
[2023-01-16 06:59] LABS: Basophils Percent Auto 0.4 % (0-2); Eosinophils Absolute Auto 0.1 X10*3/uL (0.0-0.4); Eosinophils Percent Auto 2.6 % (0-4); Hematocrit 38.9 % (42.0-52.0); Hemoglobin 12.6 g/dl (14.0-18.0); Imm Gran Abs Auto 0.02 X10*3/uL (0.00-0.03); Imm Gran Pct Auto 0.4 % (0.0-0.4); Lymphocytes Absolute Auto 1.4 X10*3/uL (1.2-4.9); Lymphocytes Percent Auto 31.2 % (20-40); Mean Corpuscular HGB Conc 32.4 g/dl (31.0-36.0); Mean Corpuscular Hemoglobin 28.6 pg (27.0-33.0); Mean Corpuscular Volume 88.4 fL (80.0-98.0); Mean Platelet Volume 10.1 fL (9.4-12.4); Monocytes Absolute Auto 0.4 X10*3/uL (0.1-1.2); Monocytes Percent Auto 9.1 % (2-11); Neutrophils Absolute Auto 2.6 x10*3/uL (2.0-8.3); Neutrophils Percent Auto 56.3 % (45-73); Platelet Count 231 X10*3/uL (160-400); Red Cell Distribution Width 14.5 % (11.0-16.0); White Blood Count 4.6 X10*3/uL (4.8-10.8)
[2023-01-16 07:15] LABS: Anion Gap 11 (12-20); Blood Urea Nitrogen 20 mg/dL (9-16); Calcium 8.7 mg/dL (8.4-10.2); Carbon Dioxide 27 mmol/L (22-29); Chloride 109 mmol/L (96-108); Estimated Glomerular Filt Rate > 60; Glucose Random 92 mg/dL (60-115); Potassium 3.4 mmol/L (3.3-5.1); Sodium 144 mmol/L (135-145)
== END 2023-01-16 06:02 | disposition home or self-care (01) ==
LOC: HO.MMNH1L 06:01
PROVIDERS: Visit Provider Family Medicine
DX: J44.9 Chronic obstructive pulmonary disease, unspecified (principal)
CPT/HCPCS: 36415; 80048; 85025

== ENCOUNTER 2023-01-23 05:45 | Outpatient (REF) | payer OTHER, SELFPAY ==
[2023-01-23 05:43] LABS: MANUAL DIFF FLAG NO
[2023-01-23 06:24] LABS: Basophils Percent Auto 0.8 % (0-2); Eosinophils Absolute Auto 0.2 X10*3/uL (0.0-0.4); Eosinophils Percent Auto 4.5 % (0-4); Hemoglobin 12.4 g/dl (14.0-18.0); Imm Gran Abs Auto 0.02 X10*3/uL (0.00-0.03); Imm Gran Pct Auto 0.4 % (0.0-0.4); Lymphocytes Absolute Auto 1.4 X10*3/uL (1.2-4.9); Lymphocytes Percent Auto 26.8 % (20-40); Mean Corpuscular HGB Conc 32.6 g/dl (31.0-36.0); Mean Corpuscular Hemoglobin 29.4 pg (27.0-33.0); Mean Platelet Volume 10.4 fL (9.4-12.4); Monocytes Absolute Auto 0.5 X10*3/uL (0.1-1.2); Monocytes Percent Auto 9.1 % (2-11); Neutrophils Absolute Auto 3.1 x10*3/uL (2.0-8.3); Neutrophils Percent Auto 58.4 % (45-73); Platelet Count 205 X10*3/uL (160-400); Red Blood Count 4.22 X10*6/uL (4.60-5.80); Red Cell Distribution Width 14.3 % (11.0-16.0); White Blood Count 5.3 X10*3/uL (4.8-10.8)
[2023-01-23 06:43] LABS: Anion Gap 10 (12-20); Blood Urea Nitrogen 13 mg/dL (9-16); Calcium 8.3 mg/dL (8.4-10.2); Carbon Dioxide 28 mmol/L (22-29); Chloride 108 mmol/L (96-108); Estimated Glomerular Filt Rate > 60; Glucose Random 93 mg/dL (60-115); Potassium 3.5 mmol/L (3.3-5.1); Sodium 142 mmol/L (135-145)
== END 2023-01-23 05:46 | disposition home or self-care (01) ==
LOC: HO.MMNH1L 05:45
PROVIDERS: Visit Provider Family Medicine
DX: J44.9 Chronic obstructive pulmonary disease, unspecified (principal)
CPT/HCPCS: 36415; 80048; 85025

== ENCOUNTER 2023-01-30 06:40 | Outpatient (REF) | payer OTHER, SELFPAY ==
[2023-01-30 06:03] LABS: MANUAL DIFF FLAG NO
[2023-01-30 06:20] LABS: Basophils Percent Auto 0.5 % (0-2); Eosinophils Absolute Auto 0.3 X10*3/uL (0.0-0.4); Eosinophils Percent Auto 5.2 % (0-4); Imm Gran Abs Auto 0.03 X10*3/uL (0.00-0.03); Imm Gran Pct Auto 0.5 % (0.0-0.4); Lymphocytes Absolute Auto 1.3 X10*3/uL (1.2-4.9); Lymphocytes Percent Auto 23.1 % (20-40); Mean Corpuscular HGB Conc 32.5 g/dl (31.0-36.0); Mean Corpuscular Hemoglobin 28.6 pg (27.0-33.0); Mean Corpuscular Volume 87.9 fL (80.0-98.0); Mean Platelet Volume 10.3 fL (9.4-12.4); Monocytes Absolute Auto 0.5 X10*3/uL (0.1-1.2); Monocytes Percent Auto 8.2 % (2-11); Neutrophils Absolute Auto 3.5 x10*3/uL (2.0-8.3); Neutrophils Percent Auto 62.5 % (45-73); Platelet Count 157 X10*3/uL (160-400); Red Blood Count 4.55 X10*6/uL (4.60-5.80); Red Cell Distribution Width 14.6 % (11.0-16.0); White Blood Count 5.6 X10*3/uL (4.8-10.8)
[2023-01-30 07:14] LABS: Anion Gap 12 (12-20); Blood Urea Nitrogen 15 mg/dL (9-16); Calcium 8.5 mg/dL (8.4-10.2); Carbon Dioxide 28 mmol/L (22-29); Chloride 106 mmol/L (96-108); Estimated Glomerular Filt Rate > 60; Glucose Random 104 mg/dL (60-115); Potassium 3.6 mmol/L (3.3-5.1); Sodium 142 mmol/L (135-145)
== END 2023-01-30 06:41 | disposition home or self-care (01) ==
LOC: HO.MMNH1L 06:40
PROVIDERS: Visit Provider Family Medicine
DX: J44.9 Chronic obstructive pulmonary disease, unspecified (principal)
CPT/HCPCS: 36415; 80048; 85025

== ENCOUNTER 2023-04-24 05:57 | Outpatient (REF) | payer OTHER, SELFPAY ==
[2023-04-24 05:53] LABS: MANUAL DIFF FLAG NO
[2023-04-24 06:08] LABS: Basophils Percent Auto 0.6 % (0-2); Eosinophils Absolute Auto 0.3 X10*3/uL (0.0-0.4); Eosinophils Percent Auto 4.8 % (0-4); Hematocrit 40.1 % (42.0-52.0); Hemoglobin 13.1 g/dl (14.0-18.0); Imm Gran Abs Auto 0.02 X10*3/uL (0.00-0.03); Imm Gran Pct Auto 0.4 % (0.0-0.4); Lymphocytes Absolute Auto 1.3 X10*3/uL (1.2-4.9); Lymphocytes Percent Auto 24.8 % (20-40); Mean Corpuscular HGB Conc 32.7 g/dl (31.0-36.0); Mean Corpuscular Hemoglobin 28.7 pg (27.0-33.0); Mean Corpuscular Volume 87.7 fL (80.0-98.0); Mean Platelet Volume 10.6 fL (9.4-12.4); Monocytes Absolute Auto 0.4 X10*3/uL (0.1-1.2); Monocytes Percent Auto 8.3 % (2-11); Neutrophils Absolute Auto 3.2 x10*3/uL (2.0-8.3); Neutrophils Percent Auto 61.1 % (45-73); Platelet Count 179 X10*3/uL (160-400); Red Blood Count 4.57 X10*6/uL (4.60-5.80); Red Cell Distribution Width 14.7 % (11.0-16.0); White Blood Count 5.2 X10*3/uL (4.8-10.8)
[2023-04-24 06:26] LABS: Anion Gap 14 (12-20); Blood Urea Nitrogen 16 mg/dL (9-16); Calcium 8.6 mg/dL (8.4-10.2); Carbon Dioxide 25 mmol/L (22-29); Chloride 107 mmol/L (96-108); Estimated Glomerular Filt Rate > 60; Glucose Random 82 mg/dL (60-115); Potassium 3.5 mmol/L (3.3-5.1); Sodium 142 mmol/L (135-145)
== END 2023-04-24 05:58 | disposition home or self-care (01) ==
LOC: HO.MMNH1L 05:57
PROVIDERS: Visit Provider Family Medicine
DX: J44.9 Chronic obstructive pulmonary disease, unspecified (principal)
CPT/HCPCS: 36415; 80048; 85025

== ENCOUNTER 2023-04-28 09:59 | Outpatient (AMB) | payer OTHER, SELFPAY ==
--- NOTE | 2023-04-28 10:03 | MHC.OFFVIS ---
Intake Vital Signs 04/28/23 10:15 Height 5 ft 9 in Weight 177 lb BMI 26.1 BP 132/71 Blood Pressure Location Lt brachial Position Sitting Pulse 91 Intake Visit Reasons: wound right gnosticism ? debridment Intake Note: Patient is seen in office for evaluation of a wound of the right gnosticism. Patient c/o: fell a month ago and has a lump on his head, admits to pain, some discoloration Station Tender Required: No Accompanied by: Self / Same As Patient Allergies codeine Allergy (Mild, Verified 04/28/23 10:19) Unknown morphine Allergy (Mild, Verified 04/28/23 10:19) Unknown Medication List - Last Reconciled 04/28/23 by Krishna Oswald MD acetaminophen 650 mg PO Q6H PRN albuterol sulfate 90 mcg/actuation 2 puffs inhalation Q4H PRN aspirin 81 mg PO DAILY atorvastatin (Lipitor) 40 mg PO BEDTIME 30 days bisacodyl (Dulcolax (bisacodyl)) 10 mg [place] DAILY PRN cefuroxime axetil 250 mg PO BID 3 days cholecalciferol (vitamin D3) 50 mcg PO DAILY diclofenac sodium 1% 2 grams topical QID divalproex 500 mg PO DAILY divalproex 250 mg PO DAILY docusate sodium 100 mg PO BID ferrous sulfate 325 mg PO DAILY finasteride 5 mg PO DAILY fluoxetine 20 mg PO DAILY fluticasone furoate 100 mcg/actuation (Arnuity Ellipta) 1 puff inhalation DAILY fluticasone propionate 50 mcg/actuation 1 spray intranasal DAILY furosemide 20 mg PO DAILY ibuprofen 200 mg PO Q6H PRN loratadine 10 mg PO DAILY montelukast 10 mg PO QPM omeprazole 20 mg PO DAILY pregabalin 150 mg PO BID tamsulosin 0.4 mg PO DAILY HPI HPI Comments History of Present Illness Details 73-year-old male patient status post fall resulting in a hematoma of the right forehead. Patient is unable to communicate when this occurred but seems indicate that there is no pain associated with the lesion. No other information is available regarding this patient. [facility] Medical History Asthma exacerbation COPD (chronic obstructive pulmonary disease) COPD (chronic obstructive pulmonary disease) Dementia Hyperlipidemia Social History Household Members: Caregiver Household Members Other:: Tristan Louise Housing: Long-Term Unable to assess alcohol history related to: Unable to respond Patient Tobacco Use Status: Never used Tobacco Second Hand Smoke Exposure: No Current occupational status: retired Review of Systems Const Unobtainable due to mental condition Physical Exam Const General: alert and awake Nutritional Appearance: well nourished Orientation/consciousness: Other orientation findings Limitations: ambulation with walker HEENT Other: Palpable hematoma over the right frontal scalp measuring 3 cm in diameter. No bruising is identified. The lesion does appear to have fluid and possibly clot within the wound. There is no skin ulceration, bleeding or discharge appreciated. There is no evidence of infection. Head images: 1. Probable hematoma right forehead, 3 cm in diameter. Nontender to palpation. No skin ulceration or necrosis appreciated. Resp Effort & Inspection: normal respiratory effort Skin Other: Warm, dry, no rash Extrem General: Yes normal to inspection Assessment & Plan Assessment & Plan (1) Hematoma of frontal scalp: Code(s): S00.03XA - Contusion of scalp, initial encounter Plan 73-year-old male patient presenting with an apparent hematoma of the right frontal scalp. I am uncertain how long this has been present and if it is changing in any way. The patient denies any pain from the lesion. Options include needle aspiration, open drainage in the OR, or observation. These were discussed with the patient and he indicated he would prefer no surgery or needle. I therefore asked him to return in 1 month for follow-up examination. Coding Level of Care Code New Pt Level 4 (13297) Diagnoses Hematoma of frontal scalp S00.03XA
[2023-04-28 10:15] VITALS: BP 132/71; PULSE 91; BMI 26.1
== END 2023-04-28 10:23 | disposition home or self-care (01) ==
PROVIDERS: Visit Provider Surgery
DX: S00.03XA Contusion of scalp, initial encounter (principal)
CPT/HCPCS: 99204

== ENCOUNTER → 2023-04-28 09:59 | Outpatient (BNVA) | payer OTHER, SELFPAY | PROVIDERS: Visit Provider Surgery | DX: S00.03XA Contusion of scalp, initial encounter (principal); W19.XXXA Unspecified fall, initial encounter; Y93.9 Activity, unspecified; Y92.9 Unspecified place or not applicable; Y99.9 Unspecified external cause status | CPT/HCPCS: 99202 ==

== ENCOUNTER 2023-05-30 10:06 | Outpatient (AMB) | payer OTHER, SELFPAY ==
--- NOTE | 2023-05-30 10:08 | A.OFFVIS_ITS ---
Intake Vital Signs 3 05/30/23 10:18 Height 5 ft 9 in Weight 180 lb 2 oz BMI 26.6 BP 152/79 H Blood Pressure Location Lt brachial Position Sitting Pulse 64 Intake Visit Reasons: lump of forehead Intake Note: Patient is seen in office for follow up visit, following lump on the forehead. 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 Required: No Accompanied by: Other Relationship Allergies codeine Allergy (Mild, Verified 05/30/23 10:19) Unknown morphine Allergy (Mild, Verified 05/30/23 10:19) Unknown Medication List - Last Reconciled 05/30/23 by Krishna Oswald MD acetaminophen 650 mg PO Q6H PRN albuterol sulfate 90 mcg/actuation 2 puffs inhalation Q4H PRN aspirin 81 mg PO DAILY atorvastatin (Lipitor) 40 mg PO BEDTIME 30 days bisacodyl (Dulcolax (bisacodyl)) 10 mg [place] DAILY PRN cefuroxime axetil 250 mg PO BID 3 days cholecalciferol (vitamin D3) 50 mcg PO DAILY diclofenac sodium 1% 2 grams topical QID divalproex 500 mg PO DAILY divalproex 250 mg PO DAILY docusate sodium 100 mg PO BID ferrous sulfate 325 mg PO DAILY finasteride 5 mg PO DAILY fluoxetine 20 mg PO DAILY fluticasone furoate 100 mcg/actuation (Arnuity Ellipta) 1 puff inhalation DAILY fluticasone propionate 50 mcg/actuation 1 spray intranasal DAILY furosemide 20 mg PO DAILY ibuprofen 200 mg PO Q6H PRN loratadine 10 mg PO DAILY montelukast 10 mg PO QPM omeprazole 20 mg PO DAILY pregabalin 150 mg PO BID tamsulosin 0.4 mg PO DAILY HPI HPI Comments 2 History of Present Illness0 Details Patient returns for follow-up examination after sustaining a hematoma to the right scalp. He reports no new symptoms and denies any pain currently. [facility] Medical History COPD (chronic obstructive pulmonary disease) Hyperlipidemia Dementia Asthma exacerbation COPD (chronic obstructive pulmonary disease) Social History Household Members: Caregiver Household Members Other:: [facility] Housing: Intermediate Unable to assess alcohol history related to: Unable to respond Patient Tobacco Use Status: Never used Tobacco Second Hand Smoke Exposure: No Current occupational status: retired Review of Systems Const Unobtainable due to mental condition Physical Exam Const General: alert and awake Nutritional Appearance: well nourished Orientation/consciousness: Other orientation findings Limitations: ambulation with walker HEENT Other: Palpable hematoma over the right frontal scalp is now smaller, now measuring 2 cm in diameter. No bruising is identified. The lesion does appear to have fluid and possibly clot within the wound. There is no skin ulceration, bleeding or discharge appreciated. There is no evidence of infection. Nontender to palpation. Head images: 2 1. Residual hematoma right scalp Resp Effort & Inspection: normal respiratory effort Skin Other: Warm, dry, no rash Extrem General: Yes normal to inspection Assessment & Plan Assessment & Plan (1) Hematoma of frontal scalp: Code(s): S00.03XA - Contusion of scalp, initial encounter Qualifiers: Encounter type: subsequent encounter Qualified Code(s): S00.03XD - Contusion of scalp, subsequent encounter Plan Overall the patient is improved with decreased size of the hematoma of the right scalp. He should continue to decrease in size as the body gradually absorbs the fluid. No surgical intervention is recommended. He should follow up as needed. Coding Level of Care Code Est Pt Level 3 (67222) Diagnoses Hematoma of frontal scalp, subsequent encounter S00.03XD Encounter type: subsequent encounter
[2023-05-30 10:18] VITALS: BP 152/79; PULSE 64; BMI 26.6
== END 2023-05-30 10:27 | disposition home or self-care (01) ==
PROVIDERS: Visit Provider Surgery
DX: S00.03XD Contusion of scalp, subsequent encounter (principal)
CPT/HCPCS: 99213

== ENCOUNTER → 2023-05-30 10:06 | Outpatient (BNVA) | payer OTHER, SELFPAY | PROVIDERS: Visit Provider Surgery | DX: S00.03XD Contusion of scalp, subsequent encounter (principal) | CPT/HCPCS: 99212 ==

== ENCOUNTER 2023-09-07 17:59 | Outpatient (REF) | payer OTHER, SELFPAY ==
[2023-09-07 18:50] LABS: Influenza A PCR NEGATIVE (Negative); Influenza B PCR NEGATIVE (Negative); Resp Syncy Virus RNA Qual PCR NEGATIVE (Negative); SARS COV2 PCR INHOUSE NEGATIVE (Negative)
== END 2023-09-07 18:00 | disposition home or self-care (01) ==
LOC: HO.MMNH1L 17:59
PROVIDERS: Visit Provider Family Medicine
DX: Z11.52 Encounter for screening for COVID-19 (principal); Z20.822 Contact with and (suspected) exposure to COVID-19; J44.9 Chronic obstructive pulmonary disease, unspecified
CPT/HCPCS: 0241U

== ENCOUNTER 2023-09-08 06:40 | Outpatient (REF) | payer OTHER, SELFPAY ==
[2023-09-08 06:42] LABS: MANUAL DIFF FLAG NO
[2023-09-08 06:48] LABS: Basophils Percent Auto 0.3 % (0-2); Eosinophils Absolute Auto 0.2 X10*3/uL (0.0-0.4); Hemoglobin 13.5 g/dl (14.0-18.0); Imm Gran Abs Auto 0.04 X10*3/uL (0.00-0.03); Imm Gran Pct Auto 0.6 % (0.0-0.4); Lymphocytes Absolute Auto 0.8 X10*3/uL (1.2-4.9); Lymphocytes Percent Auto 12.9 % (20-40); Mean Corpuscular HGB Conc 32.9 g/dl (31.0-36.0); Mean Corpuscular Hemoglobin 28.4 pg (27.0-33.0); Mean Corpuscular Volume 86.3 fL (80.0-98.0); Mean Platelet Volume 9.7 fL (9.4-12.4); Monocytes Absolute Auto 0.7 X10*3/uL (0.1-1.2); Monocytes Percent Auto 10.9 % (2-11); Neutrophils Absolute Auto 4.7 x10*3/uL (2.0-8.3); Neutrophils Percent Auto 72.3 % (45-73); Platelet Count 186 X10*3/uL (160-400); Red Blood Count 4.75 X10*6/uL (4.60-5.80); Red Cell Distribution Width 14.8 % (11.0-16.0); White Blood Count 6.4 X10*3/uL (4.8-10.8)
[2023-09-08 07:00] LABS: Anion Gap 11 (12-20); Blood Urea Nitrogen 13 mg/dL (9-16); Calcium 8.6 mg/dL (8.4-10.2); Carbon Dioxide 27 mmol/L (22-29); Chloride 105 mmol/L (96-108); Estimated Glomerular Filt Rate > 60; Glucose Random 97 mg/dL (60-115); Potassium 3.4 mmol/L (3.3-5.1); Sodium 140 mmol/L (135-145)
== END 2023-09-08 06:41 | disposition home or self-care (01) ==
LOC: HO.MMNH1L 06:40
PROVIDERS: Visit Provider Family Medicine
DX: J44.9 Chronic obstructive pulmonary disease, unspecified (principal); J45.909 Unspecified asthma, uncomplicated; F41.9 Anxiety disorder, unspecified
CPT/HCPCS: 36415; 80048; 85025

== ENCOUNTER 2023-10-23 06:32 | Outpatient (REF) | payer OTHER, SELFPAY ==
[2023-10-23 06:07] LABS: MANUAL DIFF FLAG NO
[2023-10-23 06:44] LABS: Basophils Percent Auto 0.7 % (0-2); Eosinophils Absolute Auto 0.3 X10*3/uL (0.0-0.4); Eosinophils Percent Auto 5.8 % (0-4); Hematocrit 39.3 % (42.0-52.0); Hemoglobin 13.3 g/dl (14.0-18.0); Imm Gran Abs Auto 0.02 X10*3/uL (0.00-0.03); Imm Gran Pct Auto 0.4 % (0.0-0.4); Lymphocytes Absolute Auto 1.5 X10*3/uL (1.2-4.9); Lymphocytes Percent Auto 26.7 % (20-40); Mean Corpuscular HGB Conc 33.8 g/dl (31.0-36.0); Mean Corpuscular Hemoglobin 29.3 pg (27.0-33.0); Mean Corpuscular Volume 86.6 fL (80.0-98.0); Mean Platelet Volume 10.1 fL (9.4-12.4); Monocytes Absolute Auto 0.5 X10*3/uL (0.1-1.2); Monocytes Percent Auto 8.6 % (2-11); Neutrophils Absolute Auto 3.2 x10*3/uL (2.0-8.3); Neutrophils Percent Auto 57.8 % (45-73); Platelet Count 213 X10*3/uL (160-400); Red Blood Count 4.54 X10*6/uL (4.60-5.80); Red Cell Distribution Width 14.9 % (11.0-16.0); White Blood Count 5.6 X10*3/uL (4.8-10.8)
[2023-10-23 06:58] LABS: Anion Gap 15 (12-20); Blood Urea Nitrogen 17 mg/dL (9-16); Calcium 8.6 mg/dL (8.4-10.2); Carbon Dioxide 26 mmol/L (22-29); Chloride 106 mmol/L (96-108); Estimated Glomerular Filt Rate > 60; Glucose Random 97 mg/dL (60-115); Potassium 3.6 mmol/L (3.3-5.1); Sodium 143 mmol/L (135-145)
== END 2023-10-23 06:33 | disposition home or self-care (01) ==
LOC: HO.MMNH1L 06:32
PROVIDERS: Visit Provider Family Medicine
DX: J44.9 Chronic obstructive pulmonary disease, unspecified (principal)
CPT/HCPCS: 36415; 80048; 85025

== ENCOUNTER 2024-01-22 06:18 | Outpatient (REF) | payer OTHER, SELFPAY ==
[2024-01-22 06:22] LABS: MANUAL DIFF FLAG NO
[2024-01-22 07:15] LABS: Basophils Percent Auto 0.4 % (0-2); Eosinophils Absolute Auto 0.3 X10*3/uL (0.0-0.4); Eosinophils Percent Auto 5.9 % (0-4); Hemoglobin 13.7 g/dl (14.0-18.0); Imm Gran Abs Auto 0.01 X10*3/uL (0.00-0.03); Imm Gran Pct Auto 0.2 % (0.0-0.4); Lymphocytes Absolute Auto 1.4 X10*3/uL (1.2-4.9); Lymphocytes Percent Auto 27.3 % (20-40); Mean Corpuscular HGB Conc 32.6 g/dl (31.0-36.0); Mean Corpuscular Hemoglobin 28.7 pg (27.0-33.0); Mean Corpuscular Volume 87.9 fL (80.0-98.0); Mean Platelet Volume 10.4 fL (9.4-12.4); Monocytes Absolute Auto 0.5 X10*3/uL (0.1-1.2); Monocytes Percent Auto 9.8 % (2-11); Neutrophils Absolute Auto 2.9 x10*3/uL (2.0-8.3); Neutrophils Percent Auto 56.4 % (45-73); Platelet Count 213 X10*3/uL (160-400); Red Blood Count 4.78 X10*6/uL (4.60-5.80); Red Cell Distribution Width 14.6 % (11.0-16.0); White Blood Count 5.1 X10*3/uL (4.8-10.8)
[2024-01-22 07:21] LABS: Valproate 32.5 mcg/mL (50.0-100.0)
[2024-01-22 07:32] LABS: Alanine Aminotransferase 16 U/L (0-40); Albumin Level 3.5 g/dL (3.5-5.0); Alkaline Phosphatase 81 U/L (39-117); Anion Gap 12 (12-20); Aspartate Amino Transferase 14 U/L (5-37); Bilirubin Total 0.7 mg/dL (0.0-1.0); Blood Urea Nitrogen 16 mg/dL (9-16); Calcium 8.8 mg/dL (8.4-10.2); Carbon Dioxide 27 mmol/L (22-29); Chloride 108 mmol/L (96-108); Cholesterol 101 mg/dL (<200); Estimated Glomerular Filt Rate > 60; Glucose Random 93 mg/dL (60-115); HDL Cholesterol 47 mg/dL (>40); LDL Cholesterol Calculated 45 mg/dL (<100); Potassium 3.8 mmol/L (3.3-5.1); Sodium 143 mmol/L (135-145); Total Protein 5.7 g/dL (6.5-8.0); Triglycerides 45 mg/dL (<150)
== END 2024-01-22 06:19 | disposition home or self-care (01) ==
LOC: HO.MMNH1L 06:18
PROVIDERS: Visit Provider Family Medicine
DX: I10 Essential (primary) hypertension (principal); Z79.899 Other long term (current) drug therapy
CPT/HCPCS: 36415; 80053; 80061; 80164; 85025

== ENCOUNTER 2024-02-29 11:39 | Outpatient (REF) | payer OTHER, SELFPAY ==
[2024-02-29 12:00] LABS: Appearance Urine Clear; Color Urine Yellow; Glucose Urine UA Negative (Negative); Leukocyte Esterase Urine Negative (Negative); Nitrite Urine Negative (Negative); Urine Blood Negative (Negative); Urine Ketones Negative (Negative); Urine Protein Negative (Neg-Trace)
== END 2024-02-29 11:40 | disposition home or self-care (01) ==
LOC: HO.MMNH1L 11:39
PROVIDERS: Visit Provider Family Medicine
DX: J44.9 Chronic obstructive pulmonary disease, unspecified (principal); F01.518 Vascular dementia, unspecified severity, with other behavioral disturbance; W19.XXXA Unspecified fall, initial encounter
CPT/HCPCS: 81003; 87086

== ENCOUNTER 2024-04-10 06:00 | Outpatient (REF) | payer OTHER, SELFPAY ==
[2024-04-10 06:31] LABS: Valproate 21.9 mcg/mL (50.0-100.0)
== END 2024-04-10 06:01 | disposition home or self-care (01) ==
LOC: HO.MMNH1L 06:00
PROVIDERS: Visit Provider Family Medicine
DX: J44.9 Chronic obstructive pulmonary disease, unspecified (principal); G89.4 Chronic pain syndrome; D41.9 Neoplasm of uncertain behavior of unspecified urinary organ; Z79.899 Other long term (current) drug therapy
CPT/HCPCS: 36415; 80164

== ENCOUNTER 2024-05-12 22:00 | Outpatient (REF) | payer OTHER, SELFPAY | END 2024-05-12 22:01 | disposition home or self-care (01) | LOC: HO.MMNH1L 22:00 | PROVIDERS: Visit Provider Family Medicine | DX: Z13.89 Encounter for screening for other disorder (principal) ==

== ENCOUNTER 2024-05-13 08:57 | Outpatient (REF) | payer OTHER, SELFPAY ==
[2024-05-13 09:17] LABS: Appearance Urine Cloudy; Color Urine Dark Yellow; Glucose Urine UA Negative (Negative); Leukocyte Esterase Urine Negative (Negative); Nitrite Urine Negative (Negative); Specific Gravity - Urine 1.025 (1.005-1.025); Urine Blood Negative (Negative); Urine Ketones Trace mg/dL (Negative); Urine Protein Trace mg/dL (Neg-Trace)
== END 2024-05-13 08:58 | disposition home or self-care (01) ==
LOC: HO.MMNH1L 08:57
PROVIDERS: Visit Provider Family Medicine
DX: N40.0 Benign prostatic hyperplasia without lower urinary tract symptoms (principal)
CPT/HCPCS: 81003; 87086

== ENCOUNTER 2024-07-01 06:46 | Outpatient (REF) | payer OTHER, SELFPAY ==
[2024-07-01 06:04] LABS: MANUAL DIFF FLAG NO
[2024-07-01 07:18] LABS: Basophils Percent Auto 0.6 % (0-2); Eosinophils Absolute Auto 0.3 X10*3/uL (0.0-0.4); Hematocrit 39.5 % (42.0-52.0); Hemoglobin 13.2 g/dl (14.0-18.0); Imm Gran Abs Auto 0.01 X10*3/uL (0.00-0.03); Imm Gran Pct Auto 0.2 % (0.0-0.4); Lymphocytes Absolute Auto 1.3 X10*3/uL (1.2-4.9); Lymphocytes Percent Auto 24.3 % (20-40); Mean Corpuscular HGB Conc 33.4 g/dl (31.0-36.0); Mean Corpuscular Hemoglobin 28.9 pg (27.0-33.0); Mean Corpuscular Volume 86.6 fL (80.0-98.0); Mean Platelet Volume 10.7 fL (9.4-12.4); Monocytes Absolute Auto 0.5 X10*3/uL (0.1-1.2); Monocytes Percent Auto 8.8 % (2-11); Neutrophils Absolute Auto 3.2 x10*3/uL (2.0-8.3); Neutrophils Percent Auto 60.1 % (45-73); Platelet Count 182 X10*3/uL (160-400); Red Blood Count 4.56 X10*6/uL (4.60-5.80); Red Cell Distribution Width 14.6 % (11.0-16.0); White Blood Count 5.4 X10*3/uL (4.8-10.8)
[2024-07-01 07:23] LABS: Anion Gap 11 (12-20); Blood Urea Nitrogen 11 mg/dL (9-16); Calcium 8.3 mg/dL (8.4-10.2); Carbon Dioxide 27 mmol/L (22-29); Chloride 108 mmol/L (96-108); Estimated Glomerular Filt Rate > 60; Glucose Random 85 mg/dL (60-115); Potassium 3.5 mmol/L (3.3-5.1); Sodium 142 mmol/L (135-145)
== END 2024-07-01 06:47 | disposition home or self-care (01) ==
LOC: HO.MMNH1L 06:46
PROVIDERS: Visit Provider Family Medicine
DX: J44.9 Chronic obstructive pulmonary disease, unspecified (principal)
CPT/HCPCS: 36415; 80048; 85025

== ENCOUNTER 2024-08-22 05:59 | Outpatient (REF) | payer OTHER, SELFPAY ==
[2024-08-22 07:30] LABS: Valproate 22.6 mcg/mL (50.0-100.0)
== END 2024-08-22 06:00 | disposition home or self-care (01) ==
LOC: HO.MMNH1L 05:59
PROVIDERS: Visit Provider Family Medicine
DX: R41.9 Unspecified symptoms and signs involving cognitive functions and awareness (principal); F01.518 Vascular dementia, unspecified severity, with other behavioral disturbance; G89.4 Chronic pain syndrome
CPT/HCPCS: 36415; 80164

== ENCOUNTER 2024-08-26 05:52 | Outpatient (REF) | payer OTHER, SELFPAY ==
[2024-08-26 05:54] LABS: MANUAL DIFF FLAG NO
[2024-08-26 06:20] LABS: Basophils Percent Auto 0.6 % (0-2); Eosinophils Absolute Auto 0.2 X10*3/uL (0.0-0.4); Eosinophils Percent Auto 4.5 % (0-4); Hematocrit 37.6 % (42.0-52.0); Hemoglobin 12.2 g/dl (14.0-18.0); Imm Gran Abs Auto 0.02 X10*3/uL (0.00-0.03); Imm Gran Pct Auto 0.4 % (0.0-0.4); Lymphocytes Absolute Auto 1.3 X10*3/uL (1.2-4.9); Lymphocytes Percent Auto 27.4 % (20-40); Mean Corpuscular HGB Conc 32.4 g/dl (31.0-36.0); Mean Corpuscular Hemoglobin 28.4 pg (27.0-33.0); Mean Corpuscular Volume 87.4 fL (80.0-98.0); Mean Platelet Volume 10.9 fL (9.4-12.4); Monocytes Absolute Auto 0.5 X10*3/uL (0.1-1.2); Monocytes Percent Auto 9.6 % (2-11); Neutrophils Absolute Auto 2.7 x10*3/uL (2.0-8.3); Neutrophils Percent Auto 57.5 % (45-73); Platelet Count 179 X10*3/uL (160-400); White Blood Count 4.7 X10*3/uL (4.8-10.8)
[2024-08-26 06:50] LABS: Alanine Aminotransferase 19 U/L (0-40); Albumin Level 3.2 g/dL (3.5-5.0); Alkaline Phosphatase 70 U/L (39-117); Anion Gap 9 (12-20); Aspartate Amino Transferase 18 U/L (5-37); Bilirubin Total 0.6 mg/dL (0.0-1.0); Blood Urea Nitrogen 14 mg/dL (9-16); Calcium 8.3 mg/dL (8.4-10.2); Carbon Dioxide 27 mmol/L (22-29); Chloride 108 mmol/L (96-108); Estimated Glomerular Filt Rate > 60; Glucose Random 85 mg/dL (60-115); Potassium 3.2 mmol/L (3.3-5.1); Sodium 141 mmol/L (135-145); Total Protein 5.1 g/dL (6.5-8.0)
== END 2024-08-26 05:53 | disposition home or self-care (01) ==
LOC: HO.MMNH1L 05:52
PROVIDERS: Visit Provider Nurse Practitioner
DX: J44.9 Chronic obstructive pulmonary disease, unspecified (principal); F01.518 Vascular dementia, unspecified severity, with other behavioral disturbance
CPT/HCPCS: 36415; 80053; 85025

== ENCOUNTER 2024-08-29 18:00 | Outpatient (REF) | payer OTHER, SELFPAY ==
[2024-08-30 07:11] LABS: Appearance Urine Clear; Color Urine Dark Yellow; Glucose Urine UA Negative (Negative); Leukocyte Esterase Urine Negative (Negative); Nitrite Urine Negative (Negative); Specific Gravity - Urine 1.025 (1.005-1.025); Urine Blood Negative (Negative); Urine Ketones Negative (Negative); Urine Protein Negative (Neg-Trace)
== END 2024-08-29 18:01 | disposition home or self-care (01) ==
LOC: HO.MMNH1L 18:00
PROVIDERS: Visit Provider Family Medicine
DX: R46.89 Other symptoms and signs involving appearance and behavior (principal)
CPT/HCPCS: 81003

== ENCOUNTER 2024-09-06 11:16 | Emergency (ER) | payer OTHER, SELFPAY ==
--- NOTE | ~2024-09-06 | CT_ITS ---
EXAMINATION: CT HEAD WITHOUT CONTRAST CLINICAL INFORMATION: fall, head strike, pain COMPARISON: CT dated November 25, 2022 TECHNIQUE: Contiguous axial imaging was performed from the skull base to vertex without intravenous administration of contrast. This CT examination was performed using dose optimization techniques as appropriate, variously including the following: *Automated exposure control *Adjustment of mA and/or kV according to patient size (this includes techniques or standardized protocols for targeted exams where dose is matched to indication/reason for exam; i.e. extremities or head) *Use of iterative reconstruction technique DLP: 639.73 mGy-cm FINDINGS: Soft tissue contusion with questionable skin laceration right frontotemporal region. The bony calvarium is intact. The skull base is intact. No hematoma, intraconal or extraconal compartments of the orbits. No acute intracranial hemorrhage, mass effect, midline shift, hydrocephalus or herniation. Ibarra-white matter differentiation is normal. Prominence of the extra-axial CSF spaces cerebral sulci and ventricles likely central volume loss. Bilateral multifocal patchy and confluent deep periventricular white matter hypodensities. Sellar/suprasellar region demonstrated no gross mass. Posterior cranial fossa contents demonstrated no acute intracranial hemorrhage or mass effect. Tympanic cavities and mastoid cells are aerated. Mucosal thickening in the ethmoid air cells and maxillary sinuses. CT/CT head/brain wo IV con IMPRESSION: Soft tissue contusion with slightly skin laceration right frontotemporal scalp region. No acute fracture or bony calvarium or acute intracranial hemorrhage. Small vessel occlusive disease. Global cerebral atrophy. Electronically signed by: Oli Vail MD 09/06/2024 02:05 PM [facility] [place]
--- NOTE | ~2024-09-06 | CT_ITS ---
EXAMINATION: CT HIP WITHOUT CONTRAST, RIGHT CLINICAL INFORMATION: Expanding hematoma, concern for fracture COMPARISON: None available. TECHNIQUE: Multidetector volumetric imaging was obtained through the right hip without contrast material. Multiplanar reformatted images were submitted in coronal and sagittal planes. This CT examination was performed using dose optimization techniques as appropriate, variously including the following: *Automated exposure control *Adjustment of mA and/or kV according to patient size (this includes techniques or standardized protocols for targeted exams where dose is matched to indication/reason for exam; i.e. extremities or head) *Use of iterative reconstruction technique DLP: 295 mGy-cm FINDINGS: No acute fracture or malalignment. There is a subcutaneous hematoma at the anterolateral aspect of the proximal thigh, superficial to the tensor fascia greta muscle, measuring approximately 7.4 x 3.1 x 12.0 cm with reticular edema of the surrounding fat. Mild right hip osteoarthritis. Enlarged prostate. Urinary bladder is distended. CT/CT hip RT wo IV con IMPRESSION: 1. No acute fracture or malalignment. 2. There is a subcutaneous hematoma at the anterolateral aspect of the proximal thigh, superficial to the tensor fascia greta muscle, measuring approximately 7.4 x 3.1 x 12.0 cm. Electronically signed by: Bhaskar Nettles MD 09/06/2024 06:55 PM [facility]
--- NOTE | ~2024-09-06 | CT_ITS ---
EXAMINATION: CT CERVICAL SPINE WITHOUT CONTRAST CLINICAL INFORMATION: Status post fall. Neck pain. COMPARISON: None available. TECHNIQUE: Contiguous axial images through the cervical spine using 3 mm collimation with bone and soft tissue algorithm. Sagittal and coronal reformatted images acquired. This CT examination was performed using dose optimization techniques as appropriate, variously including the following: *Automated exposure control *Adjustment of mA and/or kV according to patient size (this includes techniques or standardized protocols for targeted exams where dose is matched to indication/reason for exam; i.e. extremities or head) *Use of iterative reconstruction technique DLP: 639.73 mGy-cm FINDINGS: Limited by patient's motion artifact. Craniocervical junction is intact. Degenerative changes in the periodontal C1 region. C1 is intact. C2 is intact. C3 is intact. C4 is intact. C5 is intact. The 6 is intact. C7 is intact. Bilateral facet joint hypertrophy, C3 C7. Multilevel marginal osteophyte formation, subchondral cyst formation, endplate irregularity and sclerosis and decreased intervertebral disc C4 C7 more conspicuous at C5-6. Grade 1 anterolisthesis C6-7 and C7-T1 likely degenerative. No gross prevertebral compartment hematoma. Calcified plaques in the carotid bulbs and both ICA. Bilateral apical lung scarring. CT/CT cervical spine wo IV con IMPRESSION: Multilevel spondylosis without acute fracture or trauma-related listhesis. If patient's symptoms persist consider MRI cervical spine. Fleischner guidelines were followed. Electronically signed by: Oli Vail MD 09/06/2024 02:00 PM [facility]
[2024-09-06 11:21] VITALS: BP 124/76; BP 185/95; PULSE 66; PULSE 74; RESP 20; TEMP 36.9; O2SAT 96; O2SAT 97; BMI 22.8
--- NOTE | 2024-09-06 11:49 | ED_ITS ---
HPI - General Adult General Chief complaint: Fall Stated complaint: FALL,+HS,?LOC,+THIN,LAC TO HEAD X 2 PER EMS Time Seen by Provider: 09/06/24 11:46 Source: patient and EMS Mode of arrival: EMS Limitations: physical limitation (patient confused at baseline) History of Present Illness ED Provider: Rayne Arreola PA-C HPI narrative: Patient is a 74 year old assigned male at with a history of COPD, chronic pain syndrome, vascular dementia, asthma, anxiety, MDD, HLD, BPH, anemia, and GERD presenting to the emergency department today from a SNF after a mechanical fall. [facility] staff states that they believe the patient attempted to get out of his wheelchair when he fell forward, striking his head. Staff states that they heard the fall but did not witness the fall. Patient is unable to participate in HPI or ROS secondary to advanced vascular dementia. Location: head and face Related Data Home Medications ?Medication ?Instructions ?Recorded ?Confirmed acetaminophen 325 mg tablet 650 mg PO Q6H PRN Pain 11/25/22 05/30/23 albuterol sulfate 90 mcg/actuation 2 puff inhalation Q4H PRN Wheezing 11/25/22 05/30/23 aerosol inhaler aspirin 81 mg tablet,delayed 81 mg PO DAILY 11/25/22 05/30/23 release bisacodyl 10 mg rectal suppository 10 mg LA DAILY PRN Constipation 11/25/22 05/30/23 (Dulcolax (bisacodyl)) cholecalciferol (vitamin D3) 50 50 mcg PO DAILY 11/25/22 05/30/23 mcg (2,000 unit) tablet diclofenac sodium 1 % topical gel 2 g topical QID 11/25/22 05/30/23 divalproex 250 mg tablet,delayed 250 mg PO DAILY 11/25/22 05/30/23 release divalproex 500 mg tablet,delayed 500 mg PO DAILY 11/25/22 05/30/23 release docusate sodium 100 mg capsule 100 mg PO BID 11/25/22 05/30/23 ferrous sulfate 325 mg (65 mg 325 mg PO DAILY 11/25/22 05/30/23 iron) tablet finasteride 5 mg tablet 5 mg PO DAILY 11/25/22 05/30/23 fluoxetine 20 mg capsule 20 mg PO DAILY 11/25/22 05/30/23 fluticasone furoate 100 1 puff inhalation DAILY 11/25/22 05/30/23 mcg/actuation blister powder for inhalation (Arnuity Ellipta) fluticasone propionate 50 1 spray intranasal DAILY 11/25/22 05/30/23 mcg/actuation nasal spray,suspension furosemide 20 mg tablet 20 mg PO DAILY 11/25/22 05/30/23 ibuprofen 200 mg tablet 200 mg PO Q6H PRN Pain 11/25/22 05/30/23 loratadine 10 mg tablet 10 mg PO DAILY 11/25/22 05/30/23 montelukast 10 mg tablet 10 mg PO QPM 11/25/22 05/30/23 omeprazole 20 mg capsule,delayed 20 mg PO DAILY 11/25/22 05/30/23 release pregabalin 150 mg capsule 150 mg PO BID 11/25/22 05/30/23 tamsulosin 0.4 mg capsule 0.4 mg PO DAILY 11/25/22 05/30/23 Previous Rx's ?Medication ?Instructions ?Recorded atorvastatin 40 mg tablet (Lipitor) 40 mg PO BEDTIME 30 days #30 tabs 11/26/22 cefuroxime axetil 250 mg tablet 250 mg PO BID 3 days #6 tabs 11/26/22 Allergies Allergy/AdvReac Type Severity Reaction Status Date / Time codeine Allergy Mild Unknown Verified 09/06/24 11:24 morphine Allergy Mild Unknown Verified 05/30/23 10:19 Review of Systems 2 Review of Systems: Yes Other (patient has severe vascular dementia at baseline) ENT: Comments: head injury - right sided facial lacerations Neurologic: Reports confusion (per baseline) Psychiatric: Psychiatric: Reports confusion (per baseline) [facility] Past Medical History Attestation statement: The following information was validated with the patient. (all information validated by [facility] staff) Source: old records reviewed, nursing notes reviewed and other (reviewed all SNF documents) Medical History COPD (chronic obstructive pulmonary disease) Hyperlipidemia Dementia Asthma exacerbation COPD (chronic obstructive pulmonary disease) Social History Social History Household Members: Caregiver Household Members Other:: [facility] Housing: Shelter Unable to assess alcohol history related to: Unable to respond Comment: 1:1 sitter Patient Tobacco Use Status: Never used Tobacco Smoked in Last 30 Days: No Second Hand Smoke Exposure: No Use of substances other than those prescribed or required for medical reasons: No Advance Directives: No Advance Directives Information Provided: Yes Current occupational status: retired Physical Exam ED Vital Signs: Vital Signs - 24 hr 09/06/24 11:21 09/06/24 14:29 09/06/24 16:36 Temperature 98.4 F 98.1 F Pulse Rate 66 66 77 Respiratory Rate 20 16 16 Blood Pressure 185/95 H 142/71 H 140/92 H Pulse Oximetry 96 97 98 Oxygen Delivery Method Room Air Room Air Room Air BMI result Body Mass Index 22.8 Const General: cooperative, no acute distress, alert, awake and confusion (per baseline) Nutritional Appearance: well nourished Orientation/consciousness: confusion (per baseline) Limitations: no limitations HENMT Ears: hearing grossly normal bilaterally and external ears normal General nose exam: Normal external nose present, no nasal discharge noted and no epistaxis Face images: 2 1. small, superficial laceration - no gaping areas or bleeding 2. laceration, minimal gaping, no active bleeding Mouth: Normal oral and palatal mucosa present, no drooling and no muffled voice Eyes General: appearance normal, both eyes and all related structures Periorbital: periorbital findings normal Eyelids: Yes eyelids normal Conjunctivae: conjunctivae normal Pupils: Equal, round and reactive pupils present EOM: EOMs intact bilaterally Neck Neck: Yes normal visual inspection, Yes full ROM and Yes no lymphadenopathy Chest Chest palpation & inspection: normal inspection of the chest Resp Effort & Inspection: normal respiratory effort and able to speak in complete sentences GI Inspection: Yes normal to inspection Neuro General: moves all extremities and confusion (per baseline) Cranial nerves: Yes Equal, round and reactive pupils present Extrem Other: bruising present to the right upper leg / right hip General: Yes full ROM and Yes capillary refill normal Psych Appearance: grossly normal Course Course Course Narrative: 7:[address] results returned, no fracture of the hip. Patient will be discharged back to nursing facility per previous provider's instructions. Medications Administered Discontinued Medications Generic Name Dose Route Start Last Admin Trade Name Freq PRN Reason Stop Dose Admin Lidocaine HCl 5 ml 09/06/24 12:27 09/06/24 13:38 Lidocaine Hcl 1 % Mpf 5 Ml Vial SUBCUT 09/06/24 12:28 5 ml ONCE ONE Administration Procedures Laceration Laceration 1: Site: face Side (If applicable): right Size (cm): 3 Description: irregular Depth: simple, single layer Local Anesthetic: lidocaine 1% Amount of anesthesia used (mL): 5 Pre-repair: wound explored, irrigated extensively and deep structures intact Skin layer closed with: other (prolene) Size (cm): 6-0 Number of sutures: 3 Technique: simple, interrupted Medical Decision Making Medical Decision Making MDM Narrative: Patient is a 74 year old assigned male at with a history of COPD, chronic pain syndrome, vascular dementia, asthma, anxiety, MDD, HLD, BPH, anemia, and GERD presenting to the emergency department today from a SNF after a mechanical fall. Patient's physical exam was as noted in the physical exam portion of this note. Patient's blood work was unremarkable. Patient's CT head and c-spine showed no acute process. While the patient was in the department, his right upper leg bruising began to expand. Repeat CBC showed no drop in hgb or hct. Patient's CT hip is negative for any acute fracture but shows the known hematoma. I consulted with my attending physician, Dr. Arroyo, who recommended discharge back to the [facility] with mild compression dressing. I explained my physical exam findings as well as all test results to the patient. Patient's larger laceration was repaired with 3 6-0 prolene sutures and skin adhesive. Patient cleared for discharged back to [facility]. Differential Diagnosis Differential Diagnoses: The differential diagnosis associated with the presentation includes Fall Head laceration Scalp laceration Intracranial hemorrhage Hematoma Admission/Observation Consideration of admission/observation: Escalation of care including admission/observation considered Patient would have been admitted to the hospital had his work up had any findings where hospital admission was appropriate and his clinical presentation warranted hospital admission. Lab Data [facility] Lab Attestation statement: I reviewed the patient's lab results. My interpretation of these results are in the MDM Rationale portion of this note. 09/06/24 16:40 09/06/24 12:14 Labs: Lab Results 09/06/24 09/06/24 Range/Units 12:14 16:40 WBC 7.8 9.9 (4.8-10.8) X10*3/uL RBC 4.78 4.86 (4.60-5.80) X10*6/uL Hgb 13.9 L 14.0 (14.0-18.0) g/dl Hct 41.2 L 41.5 L (42.0-52.0) % MCV 86.2 85.4 (80.0-98.0) fL MCH 29.1 28.8 (27.0-33.0) pg MCHC 33.7 33.7 (31.0-36.0) g/dl RDW 15.1 14.9 (11.0-16.0) % Plt Count 170 181 (160-400) X10*3/uL MPV 10.2 9.9 (9.4-12.4) fL Immature Gran % (Auto) 0.4 0.4 (0.0-0.4) % Neut % (Auto) 82.2 H 81.2 H (45-73) % Lymph % (Auto) 9.4 L 11.0 L (20-40) % [place] % (Auto) 5.9 6.5 (2-11) % Eos % (Auto) 1.8 0.6 (0-4) % Baso % (Auto) 0.3 0.3 (0-2) % Lymph # (Auto) 0.7 L 1.1 L (1.2-4.9) X10*3/uL [place] # (Auto) 0.5 0.6 (0.1-1.2) X10*3/uL Eos # (Auto) 0.1 0.1 (0.0-0.4) X10*3/uL Baso # (Auto) 0.0 0.0 (0.0-0.2) X10*3/uL Abs Immat Gran (auto) 0.03 0.04 H (0.00-0.03) X10*3/uL Absolute Neuts (auto) 6.4 8.0 (2.0-8.3) x10*3/uL Absolute Nucleated RBC 0.000 0.000 (0.0-0.012) X10*3/uL Nucleated RBC % (auto) 0.0 0.0 (0.0-0.2) /100WBC Sodium 144 (135-145) mmol/L Potassium 3.7 (3.3-5.1) mmol/L Chloride 108 (96-108) mmol/L Carbon Dioxide 30 H (22-29) mmol/L Anion Gap 10 L (12-20) BUN 11 (9-16) mg/dL Creatinine 0.73 (0.5-1.4) mg/dL Estim Creat Clear Calc 90.6 Estimated GFR > 60 Random Glucose 114 (60-115) mg/dL Calcium 8.4 (8.4-10.2) mg/dL Total Bilirubin 0.5 (0.0-1.0) mg/dL AST 17 (5-37) U/L ALT 21 (0-40) U/L Alkaline Phosphatase 99 (39-117) U/L Total Protein 6.1 L (6.5-8.0) g/dL Albumin 3.7 (3.5-5.0) g/dL Urine Color Yellow Urine Appearance Clear Urine pH 7.0 (5.0-9.0) Ur Specific [place] 1.015 (1.005-1.025) Urine Protein Negative (Neg-Trace) mg/dL Urine Glucose (UA) Negative (Negative) mg/dL Urine Ketones Negative (Negative) mg/dL Urine Blood Negative (Negative) Urine Nitrite Negative (Negative) Ur Leukocyte Esterase Negative (Negative) Urine RBC 0-2 (0-2) /HPF Urine WBC 0-5 (0-5) /HPF Ur Squamous Epith Cells 0-2 (0-2) /HPF Urine Bacteria None Seen (None Seen) Hyaline Casts 0-2 (0-2) /LPF Independent Interpretation I performed an independent interpretation of an: CT Scan Interpretation: [place] [id number] CT Scan Report Signed Patient: Jovon Soria MR#: [id number] : 1950 Acct:[id number] Age/Sex: 74 / M ADM Date: 09/06/24 Loc: HO.ED Attending Dr: Ordering Physician: Rayne Arreola Date of Service: 09/06/24 Procedure(s): CT hip RT wo IV con Accession Number(s): [id number] cc: Rayne Arreola; Physician,Unknown ~ EXAMINATION: CT HIP WITHOUT CONTRAST, RIGHT CLINICAL INFORMATION: Expanding hematoma, concern for fracture COMPARISON: None available. TECHNIQUE: Multidetector volumetric imaging was obtained through the right hip without contrast material. Multiplanar reformatted images were submitted in coronal and sagittal planes. This CT examination was performed using dose optimization techniques as appropriate, variously including the following: *Automated exposure control *Adjustment of mA and/or kV according to patient size (this includes techniques or standardized protocols for targeted exams where dose is matched to indication/reason for exam; i.e. extremities or head) *Use of iterative reconstruction technique DLP: 295 mGy-cm FINDINGS: No acute fracture or malalignment. There is a subcutaneous hematoma at the anterolateral aspect of the proximal thigh, superficial to the tensor fascia greta muscle, measuring approximately 7.4 x 3.1 x 12.0 cm with reticular edema of the surrounding fat. Mild right hip osteoarthritis. Enlarged prostate. Urinary bladder is distended. CT/CT hip RT wo IV con IMPRESSION: 1. No acute fracture or malalignment. 2. There is a subcutaneous hematoma at the anterolateral aspect of the proximal thigh, superficial to the tensor fascia greta muscle, measuring approximately 7.4 x 3.1 x 12.0 cm. Electronically signed by: Bhaskar Nettles MD 09/06/2024 06:55 PM [facility] Dictated By: Bhaskar Nettles MD Signed By: <Electronically signed by Bhaskar Nettles MD in OV> 09/06/24 1855 DD/ 1623 TD/TT: 09/06/24 1652 Internet Webmaster: FELY My interpretation is in agreement with the radiologist's impression of these imaging studies. L EXAMINATION: CT CERVICAL SPINE WITHOUT CONTRAST CLINICAL INFORMATION: Status post fall. Neck pain. COMPARISON: None available. TECHNIQUE: Contiguous axial images through the cervical spine using 3 mm collimation with bone and soft tissue algorithm. Sagittal and coronal reformatted images acquired. This CT examination was performed using dose optimization techniques as appropriate, variously including the following: *Automated exposure control *Adjustment of mA and/or kV according to patient size (this includes techniques or standardized protocols for targeted exams where dose is matched to indication/reason for exam; i.e. extremities or head) *Use of iterative reconstruction technique DLP: 639.73 mGy-cm FINDINGS: Limited by patient's motion artifact. Craniocervical junction is intact. Degenerative changes in the periodontal C1 region. C1 is intact. C2 is intact. C3 is intact. C4 is intact. C5 is intact. The 6 is intact. C7 is intact. Bilateral facet joint hypertrophy, C3 C7. Multilevel marginal osteophyte formation, subchondral cyst formation, endplate irregularity and sclerosis and decreased intervertebral disc C4 C7 more conspicuous at C5-6. Grade 1 anterolisthesis C6-7 and C7-T1 likely degenerative. No gross prevertebral compartment hematoma. Calcified plaques in the carotid bulbs and both ICA. Bilateral apical lung scarring. CT/CT cervical spine wo IV con IMPRESSION: Multilevel spondylosis without acute fracture or trauma-related listhesis. If patient's symptoms persist consider MRI cervical spine. Fleischner guidelines were followed. Electronically signed by: Oli Vail MD 09/06/2024 02:00 PM [facility] Dictated By: Oli Macedo MD Signed By: Electronically signed by Oli Blackman MD 09/06/24 1400 EXAMINATION: CT HEAD WITHOUT CONTRAST CLINICAL INFORMATION: fall, head strike, pain COMPARISON: CT dated November 25, 2022 TECHNIQUE: Contiguous axial imaging was performed from the skull base to vertex without intravenous administration of contrast. This CT examination was performed using dose optimization techniques as appropriate, variously including the following: *Automated exposure control *Adjustment of mA and/or kV according to patient size (this includes techniques or standardized protocols for targeted exams where dose is matched to indication/reason for exam; i.e. extremities or head) *Use of iterative reconstruction technique DLP: 639.73 mGy-cm FINDINGS: Soft tissue contusion with questionable skin laceration right frontotemporal region. The bony calvarium is intact. The skull base is intact. No hematoma, intraconal or extraconal compartments of the orbits. No acute intracranial hemorrhage, mass effect, midline shift, hydrocephalus or herniation. [place]-white matter differentiation is normal. Prominence of the extra-axial CSF spaces cerebral sulci and ventricles likely central volume loss. Bilateral multifocal patchy and confluent deep periventricular white matter hypodensities. Sellar/suprasellar region demonstrated no gross mass. Posterior cranial fossa contents demonstrated no acute intracranial hemorrhage or mass effect. Tympanic cavities and mastoid cells are aerated. Mucosal thickening in the ethmoid air cells and maxillary sinuses. CT/CT head/brain wo IV con IMPRESSION: Soft tissue contusion with slightly skin laceration right frontotemporal scalp region. No acute fracture or bony calvarium or acute intracranial hemorrhage. Small vessel occlusive disease. Global cerebral atrophy. Electronically signed by: Oli Vail MD 09/06/2024 02:05 PM [facility] Dictated By: Oli Macedo MD Signed By: Electronically signed by Oli Blackman MD 09/06/24 1405 EXAMINATION: CT HIP WITHOUT CONTRAST, RIGHT CLINICAL INFORMATION: Expanding hematoma, concern for fracture COMPARISON: None available. TECHNIQUE: Multidetector volumetric imaging was obtained through the right hip without contrast material. Multiplanar reformatted images were submitted in coronal and sagittal planes. This CT examination was performed using dose optimization techniques as appropriate, variously including the following: *Automated exposure control *Adjustment of mA and/or kV according to patient size (this includes techniques or standardized protocols for targeted exams where dose is matched to indication/reason for exam; i.e. extremities or head) *Use of iterative reconstruction technique DLP: 295 mGy-cm FINDINGS: No acute fracture or malalignment. There is a subcutaneous hematoma at the anterolateral aspect of the proximal thigh, superficial to the tensor fascia greta muscle, measuring approximately 7.4 x 3.1 x 12.0 cm with reticular edema of the surrounding fat. Mild right hip osteoarthritis. Enlarged prostate. Urinary bladder is distended. CT/CT hip RT wo IV con IMPRESSION: 1. No acute fracture or malalignment. 2. There is a subcutaneous hematoma at the anterolateral aspect of the proximal thigh, superficial to the tensor fascia greta muscle, measuring approximately 7.4 x 3.1 x 12.0 cm. Electronically signed by: Bhaskar Nettles MD 09/06/2024 06:55 PM [facility] Dictated By: Bhaskar Nettles MD Signed By: Electronically signed by Bhaskar Nettles MD 09/06/24 4471 Radiology Impression Discussion of test interpretation with radiology: I have reviewed the radiologist's reading. Independent Historian Clinical information obtained from an independent historian. History obtained from or confirmed by: EMS (EMS provided additional history and confirmed the history provided by SNF staff) and Other (SNF staff provided additional history and confirmed the history provided by EMS) Critical Care Time Critical Care Time Critical Care Time: Yes Total Critical Care Time: 37 Attestation: I spent 37 minutes of Critical Care Time with this patient. This does not include time spent on separately reported billable procedures. Discharge Plan Discharge Clinical Impression: Forehead laceration, Fall Patient Disposition: Still a Patient Transfer Details: Back to [facility] Instructions: Care For Your Stitches (DC), Laceration (DC), Fall Prevention for Older Adults (ED), Skin Adhesive Care (ED) Additional Instructions: Patient's forehead laceration was repaired with 3 sutures and skin adhesive overtop. Given how the skin adhesive dries - it looks like a bloodied area but it was thoroughly cleaned before the adhesive was applied. Do NOT Get the affected area wet for at LEAST 7 days. Do NOT soak the affected area. Have the sutures removed in 7-10 days. Patient has a hematoma to the right upper leg - there is a mild compression dressing in the form of an DEEDEE wrap over the area. THE RIGHT LOWER EXTREMITY MUST BE CHECKED FOR PERFUSION REGULARLY WHILE THIS DRESSING IS ON. Follow up with your primary care provider. Return to the emergency department immediately if your symptoms worsen or if you develop any dizziness, shortness of breath, difficulty breathing, chest pain, blurry vision, loss of vision, nausea, vomiting, abdominal pain, fever, chills, back pain, or any other complaints. Prescriptions: No Action acetaminophen 325 mg Tablet 650 mg PO Q6H PRN (Reason: Pain) divalproex 250 mg Tablet,Delayed Release (Dr/Ec) 250 mg PO DAILY divalproex 500 mg tablet,delayed release (DR/EC) 500 mg PO DAILY aspirin 81 mg Tablet,Delayed Release (Dr/Ec) 81 mg PO DAILY bisacodyl [Dulcolax (bisacodyl)] 10 mg Suppository 10 mg LA DAILY PRN (Reason: Constipation) ferrous sulfate 325 mg (65 mg iron) Tablet 325 mg PO DAILY docusate sodium 100 mg Capsule 100 mg PO BID albuterol sulfate 90 mcg/actuation HFA aerosol inhaler 2 puff inhalation Q4H PRN (Reason: Wheezing) loratadine 10 mg Tablet 10 mg PO DAILY diclofenac sodium 1 % Gel 2 g TOPICAL QID Rx Instructions: apply to single elbow, wrist or hand; for hand includes palm/fingers/back of hand cholecalciferol (vitamin D3) 50 mcg (2,000 unit) Tablet 50 mcg PO DAILY Arnuity Ellipta 100 mcg/actuation blister with device 1 puff inhalation DAILY fluticasone propionate 50 mcg/actuation [place],Suspension 1 spray INTRANASAL DAILY Rx Instructions: administer into each nostril finasteride 5 mg Tablet 5 mg PO DAILY tamsulosin 0.4 mg Capsule 0.4 mg PO DAILY ibuprofen 200 mg Tablet 200 mg PO Q6H PRN (Reason: Pain) omeprazole 20 mg Capsule,Delayed Release(Dr/Ec) 20 mg PO DAILY montelukast 10 mg Tablet 10 mg PO QPM furosemide 20 mg Tablet 20 mg PO DAILY fluoxetine 20 mg Capsule 20 mg PO DAILY pregabalin 150 mg Capsule 150 mg PO BID atorvastatin [Lipitor] 40 mg tablet 40 mg PO BEDTIME 30 Days Qty: 30 0RF cefuroxime axetil 250 mg tablet 250 mg PO BID 3 Days Qty: 6 0RF Referrals: [facility] [Provider Group] (Call to establish and follow up with a primary care provider. If you already have a primary care provider, please follow up with them.) [facility] [Provider Group] (Call to establish and follow up with a primary care provider. If you already have a primary care provider, please follow up with them.) [facility] [Provider Group] (Call to establish and follow up with a primary care provider. If you already have a primary care provider, please follow up with them.) Print Language: Mohawk
[2024-09-06 12:19] LABS: MANUAL DIFF FLAG NO
[2024-09-06 12:21] LABS: Basophils Percent Auto 0.3 % (0-2); Eosinophils Absolute Auto 0.1 X10*3/uL (0.0-0.4); Eosinophils Percent Auto 1.8 % (0-4); Hematocrit 41.2 % (42.0-52.0); Hemoglobin 13.9 g/dl (14.0-18.0); Imm Gran Abs Auto 0.03 X10*3/uL (0.00-0.03); Imm Gran Pct Auto 0.4 % (0.0-0.4); Lymphocytes Absolute Auto 0.7 X10*3/uL (1.2-4.9); Lymphocytes Percent Auto 9.4 % (20-40); Mean Corpuscular HGB Conc 33.7 g/dl (31.0-36.0); Mean Corpuscular Hemoglobin 29.1 pg (27.0-33.0); Mean Corpuscular Volume 86.2 fL (80.0-98.0); Mean Platelet Volume 10.2 fL (9.4-12.4); Monocytes Absolute Auto 0.5 X10*3/uL (0.1-1.2); Monocytes Percent Auto 5.9 % (2-11); Neutrophils Absolute Auto 6.4 x10*3/uL (2.0-8.3); Neutrophils Percent Auto 82.2 % (45-73); Platelet Count 170 X10*3/uL (160-400); Red Blood Count 4.78 X10*6/uL (4.60-5.80); Red Cell Distribution Width 15.1 % (11.0-16.0); White Blood Count 7.8 X10*3/uL (4.8-10.8)
[2024-09-06 12:23] LABS: Appearance Urine Clear; Color Urine Yellow; Glucose Urine UA Negative (Negative); Leukocyte Esterase Urine Negative (Negative); Nitrite Urine Negative (Negative); Specific Gravity - Urine 1.015 (1.005-1.025); Urine Blood Negative (Negative); Urine Ketones Negative (Negative); Urine Protein Negative (Neg-Trace)
[2024-09-06 12:26] LABS: Bacteria Urine None Seen (None Seen); Hyaline Casts Urine 0-2 /LPF (0-2); RBC Urine 0-2 /HPF (0-2); Squamous Epithelial Cell Urine 0-2 /HPF (0-2); WBC Urine 0-5 /HPF (0-5)
[2024-09-06 12:50] LABS: Alanine Aminotransferase 21 U/L (0-40); Albumin Level 3.7 g/dL (3.5-5.0); Alkaline Phosphatase 99 U/L (39-117); Anion Gap 10 (12-20); Aspartate Amino Transferase 17 U/L (5-37); Bilirubin Total 0.5 mg/dL (0.0-1.0); Blood Urea Nitrogen 11 mg/dL (9-16); Calcium 8.4 mg/dL (8.4-10.2); Carbon Dioxide 30 mmol/L (22-29); Chloride 108 mmol/L (96-108); Creatinine Clr Calc Pharmacy 90.6; Estimated Glomerular Filt Rate > 60; Glucose Random 114 mg/dL (60-115); Potassium 3.7 mmol/L (3.3-5.1); Sodium 144 mmol/L (135-145); Total Protein 6.1 g/dL (6.5-8.0)
--- NOTE | 2024-09-06 12:53 | PC.NURSE ---
Pt presents to ED from [facility] via EMS. Per EMS pt is confused at baseline, had unwitnessed fall at facility, staff heard and came running. Staff believes pt got up from wheelchair and fell forward, no LOC on arrival from staff. Has 2 lacs to head, bleeding controlled with gauze. C-collar by EMS, no blood thinner use. Alert and oriented to self only, breathing even and unlabored
--- NOTE | 2024-09-06 13:09 | PC.NURSE ---
Camera placed on pt due to trying to get up and take collar off
[2024-09-06] MEDS: Lidocaine HCl 1 % MPF 5 ML VIAL SUBCUT (13:38)
[2024-09-06 14:29] VITALS: BP 142/71; PULSE 66; RESP 16; TEMP 36.7; O2SAT 97
[2024-09-06 16:36] VITALS: BP 140/92; PULSE 77; RESP 16; O2SAT 98
[2024-09-06 16:44] LABS: MANUAL DIFF FLAG NO
[2024-09-06 16:51] LABS: Basophils Percent Auto 0.3 % (0-2); Eosinophils Absolute Auto 0.1 X10*3/uL (0.0-0.4); Eosinophils Percent Auto 0.6 % (0-4); Hematocrit 41.5 % (42.0-52.0); Imm Gran Abs Auto 0.04 X10*3/uL (0.00-0.03); Imm Gran Pct Auto 0.4 % (0.0-0.4); Lymphocytes Absolute Auto 1.1 X10*3/uL (1.2-4.9); Mean Corpuscular HGB Conc 33.7 g/dl (31.0-36.0); Mean Corpuscular Hemoglobin 28.8 pg (27.0-33.0); Mean Corpuscular Volume 85.4 fL (80.0-98.0); Mean Platelet Volume 9.9 fL (9.4-12.4); Monocytes Absolute Auto 0.6 X10*3/uL (0.1-1.2); Monocytes Percent Auto 6.5 % (2-11); Neutrophils Percent Auto 81.2 % (45-73); Platelet Count 181 X10*3/uL (160-400); Red Blood Count 4.86 X10*6/uL (4.60-5.80); Red Cell Distribution Width 14.9 % (11.0-16.0); White Blood Count 9.9 X10*3/uL (4.8-10.8)
--- NOTE | 2024-09-06 19:20 | PC.NURSE ---
pt ambulated with this RN to and from bathroom to have BM. Pt ready for discharge, waiting for ems transport back to facility.
[2024-09-06 20:42] VITALS: BP 135/85; PULSE 78; RESP 15; TEMP 37.5; O2SAT 96
--- NOTE | 2024-09-06 20:43 | MHC.EDTECH ---
at this time this tech re-applied gauze dressing wrap around the pt's head in order to keep gauze in place on head laceration
[2024-09-06 23:06] VITALS: BP 135/85; PULSE 78; RESP 15; TEMP 37.5; O2SAT 96
== END 2024-09-06 23:07 | disposition skilled nursing facility (03) ==
PROVIDERS: Physician Assistant Medical; Emergency Provider Emergency Medicine Emergency Medical Services
DX: S01.81XA Laceration without foreign body of other part of head, initial encounter (principal); S09.90XA Unspecified injury of head, initial encounter; W05.0XXA Fall from non-moving wheelchair, initial encounter; Y93.9 Activity, unspecified; Y92.9 Unspecified place or not applicable; Y99.9 Unspecified external cause status; R51.9 Headache, unspecified; E78.5 Hyperlipidemia, unspecified; F03.90 Unspecified dementia, unspecified severity, without behavioral disturbance, psychotic disturbance, mood disturbance, and anxiety; Z79.899 Other long term (current) drug therapy; M54.2 Cervicalgia
CPT/HCPCS: 12013; 36415; 70450; 72125; 73700; 80053; 81001; 85025; 99284; J2003

== ENCOUNTER → 2024-09-06 11:48 | Outpatient (BNV) | payer OTHER, SELFPAY | PROVIDERS: Emergency Provider Emergency Medicine Emergency Medical Services; Visit Provider Radiology Diagnostic Radiology | DX: M47.895 Other spondylosis, thoracolumbar region (principal); S00.03XA Contusion of scalp, initial encounter | CPT/HCPCS: 70450; 72125 ==